=== PATIENT | female | born 1935 | race African-American/Black ===

== ENCOUNTER 2018-05-22 09:56 | Emergency (ER) | payer MEDICARE ==
[~2018-05-22] VITALS: Ht 149.9 cm; Wt 59.4 kg
[~2018-05-22 09:56] MED LIST: ACET325T9 PO; AMLO5TAB4 PO; Acetazolamide PO; BRIM5DRO2 OS; DICL112S2 TP; LOSA100T7 PO; METF500T16 PO; PANT40TA3 PO; PRED2.5T PO; TRAM50TA PO
[2018-05-22 10:57] LABS: BILIRUBIN,URINE NEGATIVE (NEG); CLARITY,URINE CLEAR; COLOR,URINE YELLOW; NITRITE,URINE NEGATIVE (NEG); PROTEIN,URINE NEGATIVE (NEG-TRACE)
[2018-05-22 10:58] LABS: BASO # 0.1 x10^3/uL (0.0-0.2); BASO % 1 % (0-3); EOS # 0.2 x10^3/uL (0.0-0.7); EOS % 3 % (0-3); HEMATOCRIT 33.8 % (36.0-47.0); HEMOGLOBIN 11.1 g/dL (12.0-15.5); LYMPH # 1.3 x10^3/uL (1.0-4.8); LYMPH % 16 % (24-48); MEAN CORPUSCULAR HEMOGLOBIN 27 pg (25-35); MEAN CORPUSCULAR HGB CONC 33 g/dL (31-37); MEAN CORPUSCULAR VOLUME 83 fL (79-100); MONO # 0.7 x10^3/uL (0.0-1.1); MONO % 9 % (0-9); NEUT # 5.5 x10^3uL (1.8-7.7); NEUT % 71 % (31-73); PLATELET COUNT 346 x10^3/uL (140-400); RED BLOOD COUNT 4.08 x10^6/uL (3.50-5.40); RED CELL DISTRIBUTION WIDTH 15.1 % (11.5-14.5); WHITE BLOOD COUNT 7.8 x10^3/uL (4.0-11.0)
[2018-05-22 11:10] LABS: BACTERIA,URINE FEW /HPF (0-FEW); RBC,URINE OCC /HPF (0-2); SQUAMOUS EPITHELIAL CELL,UR FEW /LPF
[2018-05-22 11:11] LABS: CALCIUM 9.1 mg/dL (8.5-10.1); CREATININE 1.2 mg/dL (0.6-1.0); GFR 51.9; POTASSIUM 4.3 mmol/L (3.5-5.1)
[2018-05-22] MEDS ORDERED: KETOROLAC 15 MG/ML VIAL. IV ONE (11:15)
[2018-05-22] MEDS ORDERED: predniSONE 20 MG TABLET PO ONE (11:15)
[2018-05-22] MEDS ORDERED: ONDANSETRON PF 4 MG/2 ML VIAL. IV ONE (11:15)
[2018-05-22] MEDS ORDERED: fentaNYL PF VIAL 100 MCG/2 ML VIAL IV ONE (11:15)
[2018-05-22 11:17] LABS: ALBUMIN 2.9 g/dL (3.4-5.0); ALBUMIN/GLOBULIN RATIO 0.6 (1.0-1.7); TOTAL BILIRUBIN 0.8 mg/dL (0.2-1.0); TOTAL PROTEIN 7.9 g/dL (6.4-8.2)
--- NOTE | 2018-05-22 11:38 | PHYS DOC ---
Past Medical History Past Medical History: Arthritis, Hypertension, Other Additional Past Medical Histor: Psoriasis, RA Past Surgical History: Appendectomy, , Other Additional Past Surgical Histo: Rotator Cuff Alcohol Use: None Drug Use: None Adult General Chief Complaint Chief Complaint: GENERALIZED BODY ACHES HPI HPI Patient is a 82 year old [place] female with history of rheumatoid arthritis who presents with diffuse body and joint aches. Symptom onset was this morning. Patient states she found it difficult to get up that due to joint stiffness. Patient recently discontinued prednisone 5 days ago due to hallucinations. Hallucinations have since resolved. No other acute symptoms or complaints. Denies fever, cough, sore throat, shortness of breath. No chest pain shortness of breath or palpitations. No abdominal pain, urinary frequency urgency. Additional history provided by family members who are present at bedside. [] Review of Systems Review of Systems ROS as per HPI. All other systems were reviewed and found to be within normal limits, except as documented in this note. Current Medications Current Medications Current Medications Medications (Trade) Dose Ordered Sig/Marilu Start Time Stop Time Status Last Admin Dose Admin Fentanyl Citrate (Fentanyl 2ml Vial) 50 mcg 1X ONCE 05/22/18 11:15 05/22/18 11:16 DC 05/22/18 11:20 50 MCG Ketorolac Tromethamine (Toradol 15mg Vial) 15 mg 1X ONCE 05/22/18 11:15 05/22/18 11:16 DC 05/22/18 11:17 15 MG Ondansetron HCl (Zofran) 4 mg 1X ONCE 05/22/18 11:15 05/22/18 11:16 DC 05/22/18 11:18 4 MG Prednisone (Prednisone) 60 mg 1X ONCE 05/22/18 11:15 05/22/18 11:16 DC Allergies Allergies Allergies Coded Allergies Type Severity Reaction Last Updated Verified No Known Drug Allergies 10/09/16 No Physical Exam Physical Exam Constitutional: Anxious, moderate discomfort secondary to pain.[] HENT: Normocephalic, atraumatic, bilateral external ears normal, oropharynx moist, no oral exudates, nose normal. [] Eyes: PERRLA, EOMI, conjunctiva normal, no discharge. [] Neck: Normal range of motion. [] Cardiovascular:Heart rate regular rhythm. [] Lungs & Thorax: Bilateral breath sounds clear to auscultation. [] Abdomen: Bowel sounds normal, soft, no tenderness. [] Skin: Warm, dry, no erythema. [] Back: No tenderness.[] Extremities: Rheumatoid deformities of small joints. Minimal swelling over wrist and hands, pain with range of motion. [] Neurologic: Alert and oriented X 3, normal motor function, normal sensory function, no focal deficits noted. [] Psychologic: Affect normal, judgement normal, mood normal. [] Current Patient Data Vital Signs Vital Signs Date Time Temp Pulse Resp B/P (MAP) Pulse Ox O2 Delivery O2 Flow Rate FiO2 05/22/18 12:07 94 176/96 (122) 97 Room Air 05/22/18 10:08 98.4 20 98.4 Lab Values Laboratory Tests Test 05/22/18 10:10 05/22/18 10:18 Urine Collection Type U cath Urine Color Yellow Urine Clarity Clear Urine pH 6.0 Urine Specific [place] 1.010 Urine Protein Negative mg/dL (NEG-TRACE) Urine Glucose (UA) Negative mg/dL (NEG) Urine Ketones (Stick) Negative mg/dL (NEG) Urine Blood Negative (NEG) Urine Nitrite Negative (NEG) Urine Bilirubin Negative (NEG) Urine Urobilinogen Dipstick 1.0 mg/dL (0.2 mg/dL) Urine Leukocyte Esterase Negative (NEG) Urine RBC Occ /HPF (0-2) Urine WBC 1-4 /HPF (0-4) Urine Squamous Epithelial Cells Few /LPF Urine Bacteria Few /HPF (0-FEW) Urine Mucus Mod /LPF White Blood Count 7.8 x10^3/uL (4.0-11.0) Red Blood Count 4.08 x10^6/uL (3.50-5.40) Hemoglobin 11.1 g/dL (12.0-15.5) L Hematocrit 33.8 % (36.0-47.0) L Mean Corpuscular Volume 83 fL (79-100) Mean Corpuscular Hemoglobin 27 pg (25-35) Mean Corpuscular Hemoglobin Concent 33 g/dL (31-37) Red Cell Distribution Width 15.1 % (11.5-14.5) H Platelet Count 346 x10^3/uL (140-400) Neutrophils (%) (Auto) 71 % (31-73) Lymphocytes (%) (Auto) 16 % (24-48) L Monocytes (%) (Auto) 9 % (0-9) Eosinophils (%) (Auto) 3 % (0-3) Basophils (%) (Auto) 1 % (0-3) Neutrophils # (Auto) 5.5 x10^3uL (1.8-7.7) Lymphocytes # (Auto) 1.3 x10^3/uL (1.0-4.8) Monocytes # (Auto) 0.7 x10^3/uL (0.0-1.1) Eosinophils # (Auto) 0.2 x10^3/uL (0.0-0.7) Basophils # (Auto) 0.1 x10^3/uL (0.0-0.2) Sodium Level 140 mmol/L (136-145) Potassium Level 4.3 mmol/L (3.5-5.1) Chloride Level 103 mmol/L (98-107) Carbon Dioxide Level 25 mmol/L (21-32) Anion Gap 12 (6-14) Blood Urea Nitrogen 10 mg/dL (7-20) Creatinine 1.2 mg/dL (0.6-1.0) H Estimated GFR (Cockcroft-Gault) 51.9 BUN/Creatinine Ratio 8 (6-20) Glucose Level 105 mg/dL (70-99) H Calcium Level 9.1 mg/dL (8.5-10.1) Total Bilirubin 0.8 mg/dL (0.2-1.0) Aspartate Amino Transferase (AST) 24 U/L (15-37) Alanine Aminotransferase (ALT) 22 U/L (14-59) Alkaline Phosphatase 88 U/L (46-116) Creatine Kinase 80 U/L (26-192) Troponin I Quantitative < 0.017 ng/mL (0.000-0.055) Total Protein 7.9 g/dL (6.4-8.2) Albumin 2.9 g/dL (3.4-5.0) L Albumin/Globulin Ratio 0.6 (1.0-1.7) L Laboratory Tests 05/22/18 10:18 Laboratory Tests 05/22/18 10:18 EKG EKG EKG: Miss rhythm, sinus tachycardia.[] Radiology/Procedures Radiology/Procedures [] Course & Med Decision Making Course & Med Decision Making Pertinent Labs and Imaging studies reviewed. (See chart for details) [Symptoms improved with tx. Recommend PCP f/u early next week. Return to the ED if new or worsening symptoms. ] Dragon Disclaimer Dragon Disclaimer This electronic medical record was generated, in whole or in part, using a voice recognition dictation system. Departure Departure Impression: Primary Impression: Arthralgia Disposition: HOME, SELF-CARE Condition: GOOD Referrals: WESTLEY RAYGOZA MD (PCP) Scripts Hydrocodone Bit/Acetaminophen (HYDROCODONE-APAP 5-300) 1 Each Tablet 1 TAB PO PRN Q6HRS PRN for PAIN, #15 TAB 0 Refills Prov: MILADYS DELGADO DO 05/22/18 MILADYS DELGADO DO May 22, 2018 11:38
[2018-05-22 12:07] VITALS: BP 176/96
[2018-05-22] MEDS ORDERED: HYDR-2163 PO (12:14)
--- NOTE | 2018-05-23 21:08 | EKG ---
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
== END 2018-05-22 12:16 | disposition home or self-care (01) ==
LOC: ER 09:56
DX: M06.9 Rheumatoid arthritis, unspecified (principal); I10 Essential (primary) hypertension; L40.9 Psoriasis, unspecified
CPT/HCPCS: 36415; 80053; 81001; 82550; 84484; 85025; 93005; 96374; 96375; 99285; J1885; J2405; J3010

== ENCOUNTER 2018-09-08 10:55 | Emergency (ER) | payer MEDICARE ==
[~2018-09-08] VITALS: Ht 152.4 cm; Wt 52.2 kg
[~2018-09-08 10:55] MED LIST changes: +HYDR-2163 PO; +LOSA100T14 PO; -LOSA100T7 PO; +OSEL30CA PO; -PANT40TA3 PO; +PANT40TA77 PO
[2018-09-08] MEDS ORDERED: IV NORMAL SALINE 1000ML BAG 1,000 ML IV SCH (11:31)
--- NOTE | 2018-09-08 11:38 | PHYS DOC ---
Past Medical History Past Medical History: Arthritis, Hypertension, Other Additional Past Medical Histor: Psoriasis, RA Past Surgical History: Appendectomy, , Other Additional Past Surgical Histo: Rotator Cuff Alcohol Use: None Drug Use: None Adult General Chief Complaint Chief Complaint: HYPOTENSION HPI HPI Patient is a 83-year-old female who presents with complaint of generalized weakness and dizziness that started this morning. Nursing facility the patient is at indicated that she had an episode of hypotension with systolic blood pressure reading in the 70s. Patient states that she feels fairly well at this time. 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 She denies any chest pain or shortness of breath. She does admit to a cough that is chronic. He also indicates that she had a headache earlier this morning but currently denies any pain. Review of Systems Review of Systems Constitutional: Denies fever or chills [] Eyes: Denies change in visual acuity, redness, or eye pain [] HENT: Complains of nasal congestion without sore throat [] Respiratory: [place] of cough without shortness of breath [] Cardiovascular: No additional information not addressed in HPI [] GI: Denies abdominal pain, vomiting or diarrhea. Admits to nausea without vomiting. [] Neurologic: Reports headache without focal weakness or sensory changes [] All other systems were reviewed and found to be within normal limits, except as documented in this note. Current Medications Current Medications Current Medications Medications (Trade) Dose Ordered Sig/Marilu Start Time Stop Time Status Last Admin Dose Admin Meclizine HCl (Antivert) 25 mg 1X ONCE 09/08/18 11:45 09/08/18 11:46 DC 09/08/18 12:08 25 MG Ondansetron HCl (Zofran) 4 mg 1X ONCE 09/08/18 11:45 09/08/18 11:46 DC 09/08/18 12:08 4 MG Sodium Chloride 1,000 ml @ 1,000 mls/hr Q1H 09/08/18 11:31 09/08/18 12:30 DC 09/08/18 11:31 1,000 MLS/HR Allergies Allergies Allergies Coded Allergies Type Severity Reaction Last Updated Verified No Known Drug Allergies 10/09/16 No Physical Exam Physical Exam Constitutional: Well developed, well nourished, no acute distress, non-toxic appearance. [] HENT: Normocephalic, atraumatic, bilateral external ears normal, oropharynx dry , no oral exudates, nose normal. [] Eyes: PERRLA, EOMI, conjunctiva normal, no discharge. [] Neck: Normal range of motion, no tenderness, supple. [] Cardiovascular: Regular rate and rhythm [] Lungs & Thorax: There are fine rhonchi in the bilateral lung bases to auscultation [] Abdomen: Bowel sounds normal, soft, no tenderness. [] Skin: Warm, dry, no erythema, no rash. [] Extremities: No tenderness, no cyanosis, no clubbing, ROM intact. [] Neurologic: Awake and alert, no focal deficits noted. [] Current Patient Data Vital Signs Vital Signs Date Time Temp Pulse Resp B/P (MAP) Pulse Ox O2 Delivery O2 Flow Rate FiO2 09/08/18 11:04 97.2 74 18 118/60 (79) 100 Room Air 97.2 Lab Values Laboratory Tests Test 09/08/18 11:15 09/08/18 12:05 Urine Collection Type Unknown Urine Color Yellow Urine Clarity Clear Urine pH 5.5 Urine Specific [place] 1.015 Urine Protein Negative mg/dL (NEG-TRACE) Urine Glucose (UA) Negative mg/dL (NEG) Urine Ketones (Stick) Negative mg/dL (NEG) Urine Blood Small (NEG) Urine Nitrite Negative (NEG) Urine Bilirubin Negative (NEG) Urine Urobilinogen Dipstick 0.2 mg/dL (0.2 mg/dL) Urine Leukocyte Esterase Trace (NEG) Urine RBC 1-2 /HPF (0-2) Urine WBC 1-4 /HPF (0-4) Urine Bacteria 0 /HPF (0-FEW) White Blood Count 14.8 x10^3/uL (4.0-11.0) H Red Blood Count 3.46 x10^6/uL (3.50-5.40) L Hemoglobin 9.6 g/dL (12.0-15.5) L Hematocrit 28.6 % (36.0-47.0) L Mean Corpuscular Volume 83 fL (79-100) Mean Corpuscular Hemoglobin 28 pg (25-35) Mean Corpuscular Hemoglobin Concent 34 g/dL (31-37) Red Cell Distribution Width 15.7 % (11.5-14.5) H Platelet Count 585 x10^3/uL (140-400) H Neutrophils (%) (Auto) 79 % (31-73) H Lymphocytes (%) (Auto) 10 % (24-48) L Monocytes (%) (Auto) 11 % (0-9) H Eosinophils (%) (Auto) 1 % (0-3) Basophils (%) (Auto) 1 % (0-3) Neutrophils # (Auto) 11.6 x10^3uL (1.8-7.7) H Lymphocytes # (Auto) 1.4 x10^3/uL (1.0-4.8) Monocytes # (Auto) 1.6 x10^3/uL (0.0-1.1) H Eosinophils # (Auto) 0.1 x10^3/uL (0.0-0.7) Basophils # (Auto) 0.1 x10^3/uL (0.0-0.2) Sodium Level 136 mmol/L (136-145) Potassium Level 5.0 mmol/L (3.5-5.1) Chloride Level 100 mmol/L (98-107) Carbon Dioxide Level 25 mmol/L (21-32) Anion Gap 11 (6-14) Blood Urea Nitrogen 29 mg/dL (7-20) H Creatinine 1.6 mg/dL (0.6-1.0) H Estimated GFR (Cockcroft-Gault) 37.2 BUN/Creatinine Ratio 18 (6-20) Glucose Level 115 mg/dL (70-99) H Calcium Level 9.4 mg/dL (8.5-10.1) Magnesium Level 2.3 mg/dL (1.8-2.4) Total Bilirubin 0.4 mg/dL (0.2-1.0) Aspartate Amino Transferase (AST) 17 U/L (15-37) Alanine Aminotransferase (ALT) 12 U/L (14-59) L Alkaline Phosphatase 97 U/L (46-116) Troponin I Quantitative < 0.017 ng/mL (0.000-0.055) Total Protein 7.6 g/dL (6.4-8.2) Albumin 2.9 g/dL (3.4-5.0) L Albumin/Globulin Ratio 0.6 (1.0-1.7) L Influenza Type A Antigen Negative (NEGATIVE) Influenza Type B Antigen Negative (NEGATIVE) Laboratory Tests 09/08/18 12:05 Laboratory Tests 09/08/18 12:05 EKG EKG [] Interpretation Time: EKG demonstrates normal sinus rhythm with rate of 90. Radiology/Procedures Radiology/Procedures [] Impressions: PROCEDURE: PORTABLE CHEST 1V EXAM: CHEST 1 VIEW History: Cough COMPARISON: 11/06/2014 TECHNIQUE: Single portable radiograph of the chest FINDINGS: The cardiac silhouette is unremarkable. The lungs are clear bilaterally. The costophrenic sulci are clear and well demarcated. IMPRESSION: No radiographic evidence of an acute cardiopulmonary process. Electronically signed by: Dayday Ho MD (09/08/2018 12:44 PM) [facility] Course & Med Decision Making Course & Med Decision Making Pertinent Labs and Imaging studies reviewed. (See chart for details) [] Dragon Disclaimer Dragon Disclaimer This electronic medical record was generated, in whole or in part, using a voice recognition dictation system. Departure Departure Impression: Primary Impression: Vasovagal near syncope Disposition: 01 HOME, SELF-CARE Condition: STABLE Referrals: CATHLEEN SHUKLA III, DO (PCP) Patient Instructions: Near-Syncope NIKKO RAYMOND Jr., DO Sep 08, 2018 11:38
[2018-09-08] MEDS ORDERED: ONDANSETRON PF 4 MG/2 ML VIAL. IV ONE (11:45)
[2018-09-08] MEDS ORDERED: MECLIZINE HCL 12.5 MG TABLET. PO ONE (11:45)
[2018-09-08 11:59] LABS: BILIRUBIN,URINE NEGATIVE (NEG); CLARITY,URINE CLEAR; COLOR,URINE YELLOW; NITRITE,URINE NEGATIVE (NEG); PH,URINE 5.5; PROTEIN,URINE NEGATIVE (NEG-TRACE); UROBILINOGEN,URINE 0.2 mg/dL (0.2 mg/dL)
[2018-09-08 12:22] LABS: BACTERIA,URINE 0 /HPF (0-FEW)
[2018-09-08 12:25] LABS: BASO # 0.1 x10^3/uL (0.0-0.2); BASO % 1 % (0-3); EOS # 0.1 x10^3/uL (0.0-0.7); EOS % 1 % (0-3); HEMATOCRIT 28.6 % (36.0-47.0); HEMOGLOBIN 9.6 g/dL (12.0-15.5); LYMPH # 1.4 x10^3/uL (1.0-4.8); LYMPH % 10 % (24-48); MEAN CORPUSCULAR HEMOGLOBIN 28 pg (25-35); MEAN CORPUSCULAR HGB CONC 34 g/dL (31-37); MEAN CORPUSCULAR VOLUME 83 fL (79-100); MONO # 1.6 x10^3/uL (0.0-1.1); MONO % 11 % (0-9); NEUT # 11.6 x10^3uL (1.8-7.7); NEUT % 79 % (31-73); PLATELET COUNT 585 x10^3/uL (140-400); RED BLOOD COUNT 3.46 x10^6/uL (3.50-5.40); RED CELL DISTRIBUTION WIDTH 15.7 % (11.5-14.5); WHITE BLOOD COUNT 14.8 x10^3/uL (4.0-11.0)
[2018-09-08 12:34] LABS: CALCIUM 9.4 mg/dL (8.5-10.1); CREATININE 1.6 mg/dL (0.6-1.0); GFR 37.2
[2018-09-08 12:38] LABS: INFLUENZA A PATIENT NEGATIVE (NEGATIVE); INFLUENZA B PATIENT NEGATIVE (NEGATIVE)
[2018-09-08 12:39] LABS: ALBUMIN 2.9 g/dL (3.4-5.0); ALBUMIN/GLOBULIN RATIO 0.6 (1.0-1.7); MAGNESIUM 2.3 mg/dL (1.8-2.4); TOTAL BILIRUBIN 0.4 mg/dL (0.2-1.0); TOTAL PROTEIN 7.6 g/dL (6.4-8.2)
--- NOTE | 2018-09-08 12:48 | RAD ---
EXAM: CHEST 1 VIEW History: Cough COMPARISON: 11/06/2014 TECHNIQUE: Single portable radiograph of the chest FINDINGS: The cardiac silhouette is unremarkable. The lungs are clear bilaterally. The costophrenic sulci are clear and well demarcated. IMPRESSION: No radiographic evidence of an acute cardiopulmonary process. Electronically signed by: Dayday Ho MD (09/08/2018 12:44 PM) [facility]
[2018-09-08 13:29] VITALS: BP 133/83
--- NOTE | 2018-09-08 16:20 | EKG ---
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
== END 2018-09-08 14:45 | disposition home or self-care (01) ==
LOC: ER 10:55
DX: R55 Syncope and collapse (principal); R53.1 Weakness; I95.9 Hypotension, unspecified; I10 Essential (primary) hypertension; Z90.89 Acquired absence of other organs
CPT/HCPCS: 36415; 71045; 80053; 81001; 83735; 84484; 85025; 87086; 87804; 93005; 96361; 96374; 99284; J2405; J7030; J8597

== ENCOUNTER 2018-12-23 10:14 | Inpatient (IN) | payer MEDICARE ==
[~2018-12-23] VITALS: Ht 152.4 cm; Wt 47.3 kg
[~2018-12-23 10:14] MED LIST changes: +PANT40TA3 PO; -PANT40TA77 PO
[2018-12-23] MEDS ORDERED: fentaNYL PF VIAL 100 MCG/2 ML VIAL IV ONE (10:30)
[2018-12-23 11:08] LABS: BASO % 1 % (0-3); EOS # 0.1 x10^3/uL (0.0-0.7); EOS % 2 % (0-3); HEMATOCRIT 31.4 % (36.0-47.0); HEMOGLOBIN 10.2 g/dL (12.0-15.5); LYMPH # 1.2 x10^3/uL (1.0-4.8); LYMPH % 19 % (24-48); MEAN CORPUSCULAR HEMOGLOBIN 26 pg (25-35); MEAN CORPUSCULAR HGB CONC 33 g/dL (31-37); MEAN CORPUSCULAR VOLUME 80 fL (79-100); MONO # 0.7 x10^3/uL (0.0-1.1); MONO % 11 % (0-9); NEUT # 4.5 x10^3uL (1.8-7.7); NEUT % 68 % (31-73); PLATELET COUNT 370 x10^3/uL (140-400); RED BLOOD COUNT 3.93 x10^6/uL (3.50-5.40); RED CELL DISTRIBUTION WIDTH 16.8 % (11.5-14.5); WHITE BLOOD COUNT 6.6 x10^3/uL (4.0-11.0)
--- NOTE | 2018-12-23 11:08 | PHYS DOC ---
Past Medical History Past Medical History: Arthritis, Hypertension, Other Additional Past Medical Histor: Psoriasis, RA Past Surgical History: Appendectomy, , Other Additional Past Surgical Histo: Rotator Cuff Alcohol Use: None Drug Use: None Adult General Chief Complaint Chief Complaint: PAIN CONTROL [facility] HPI Patient is a 83 year old female brought in by EMS because of hurting all over. Patient states she has chronic arthritis in all of her joints and currently taking Ultram but she doesn't the medicine because it causes constipation. Patient states her joints hurt more with activity and complaining of pain in her hands, elbow and shoulder, hip , knees and ankle and rated her pain 8/10.. She denies focal neuro deficit, chest pain, shortness of breath, fever and chills, urinary symptom. Review of Systems Review of Systems Constitutional: Denies fever or chills [] Eyes: Denies change in visual acuity, redness, or eye pain [] HENT: Denies nasal congestion or sore throat [] Respiratory: Denies cough or shortness of breath [] Cardiovascular: No additional information not addressed in HPI [] GI: Denies abdominal pain, nausea, vomiting, bloody stools or diarrhea [] : Denies dysuria or hematuria [] Musculoskeletal: Denies back pain, reports joint pain [] Integument: Denies rash or skin lesions [] Neurologic: Denies headache, focal weakness or sensory changes [] Endocrine: Denies polyuria or polydipsia [] All other systems were reviewed and found to be within normal limits, except as documented in this note. Current Medications Current Medications Current Medications Medications (Trade) Dose Ordered Sig/[facility] Start Time Stop Time Status Last Admin Dose Admin Fentanyl Citrate (Fentanyl 2ml Vial) 50 mcg 1X ONCE 12/23/18 10:30 12/23/18 10:32 DC 12/23/18 11:20 50 MCG Allergies Allergies Allergies Coded Allergies Type Severity Reaction Last Updated Verified No Known Drug Allergies 10/09/16 No Physical Exam Physical Exam Constitutional: Well developed, well nourished, mild distress, non-toxic appearance. [] HENT: Normocephalic, atraumatic. Eyes: PERRLA, EOMI, conjunctiva normal, no discharge. [] Neck: Normal range of motion, no tenderness, supple, no stridor. [] Cardiovascular:Heart rate regular rhythm, no murmur [] Lungs & Thorax: Bilateral breath sounds clear to auscultation [] Skin: Warm, dry, no erythema, no rash. [] Back: No tenderness, no CVA tenderness. [] Extremities: Small joint deformity of right and left hands more in the right side, painful range of motion, no deformity of large joint , no edema. [] Neurologic: Alert and oriented X 3, normal motor function, normal sensory function, no focal deficits noted. [] Psychologic: Affect anxious, judgement normal, mood normal. [] Current Patient Data Vital Signs Vital Signs Date Time Temp Pulse Resp B/P (MAP) Pulse Ox O2 Delivery O2 Flow Rate FiO2 12/23/18 11:20 16 99 Room Air 12/23/18 10:29 98.6 94 98.6 Lab Values Laboratory Tests Test 12/23/18 10:49 12/23/18 11:01 12/23/18 11:25 Urine Collection Type U cath Urine Color Yellow Urine Clarity Clear Urine pH 5.5 Urine Specific [place] 1.015 Urine Protein Negative mg/dL (NEG-TRACE) Urine Glucose (UA) Negative mg/dL (NEG) Urine Ketones (Stick) Negative mg/dL (NEG) Urine Blood Negative (NEG) Urine Nitrite Negative (NEG) Urine Bilirubin Negative (NEG) Urine Urobilinogen Dipstick 1.0 mg/dL (0.2 mg/dL) Urine Leukocyte Esterase Trace (NEG) Urine RBC 0 /HPF (0-2) Urine WBC 0 /HPF (0-4) Urine Squamous Epithelial Cells Few /LPF Urine Bacteria 0 /HPF (0-FEW) White Blood Count 6.6 x10^3/uL (4.0-11.0) Red Blood Count 3.93 x10^6/uL (3.50-5.40) Hemoglobin 10.2 g/dL (12.0-15.5) L Hematocrit 31.4 % (36.0-47.0) L Mean Corpuscular Volume 80 fL (79-100) Mean Corpuscular Hemoglobin 26 pg (25-35) Mean Corpuscular Hemoglobin Concent 33 g/dL (31-37) Red Cell Distribution Width 16.8 % (11.5-14.5) H Platelet Count 370 x10^3/uL (140-400) Neutrophils (%) (Auto) 68 % (31-73) Lymphocytes (%) (Auto) 19 % (24-48) L Monocytes (%) (Auto) 11 % (0-9) H Eosinophils (%) (Auto) 2 % (0-3) Basophils (%) (Auto) 1 % (0-3) Neutrophils # (Auto) 4.5 x10^3uL (1.8-7.7) Lymphocytes # (Auto) 1.2 x10^3/uL (1.0-4.8) Monocytes # (Auto) 0.7 x10^3/uL (0.0-1.1) Eosinophils # (Auto) 0.1 x10^3/uL (0.0-0.7) Basophils # (Auto) 0.0 x10^3/uL (0.0-0.2) Sodium Level 134 mmol/L (136-145) L Potassium Level 3.9 mmol/L (3.5-5.1) Chloride Level 99 mmol/L (98-107) Carbon Dioxide Level 22 mmol/L (21-32) Anion Gap 13 (6-14) Blood Urea Nitrogen 11 mg/dL (7-20) Creatinine 1.0 mg/dL (0.6-1.0) Estimated GFR (Cockcroft-Gault) 63.9 BUN/Creatinine Ratio 11 (6-20) Glucose Level 100 mg/dL (70-99) H Calcium Level 9.2 mg/dL (8.5-10.1) Total Bilirubin 0.7 mg/dL (0.2-1.0) Aspartate Amino Transferase (AST) 21 U/L (15-37) Alanine Aminotransferase (ALT) < 6 U/L (14-59) L Alkaline Phosphatase 69 U/L (46-116) Total Protein 7.7 g/dL (6.4-8.2) Albumin 2.6 g/dL (3.4-5.0) L Albumin/Globulin Ratio 0.5 (1.0-1.7) L Laboratory Tests 12/23/18 11:01 Laboratory Tests 12/23/18 11:25 EKG EKG [] Radiology/Procedures Radiology/Procedures [] Course & Med Decision Making Course & Med Decision Making Pertinent Labs reviewed. (See chart for details) Evaluation of patient in ER showed 83-year-old female patient with complaining of chronic arthritis she that doesn't get better with Tramadol and complaining of constipation after taking Ultram. Patient states that she lives in second floor apartment and doesn't have any way to get to her apartment because of severe pain. Patient requesting rehabilitation or retirement placement. Plan to admit patient to hospitalist for possible rehabilitation placement.Patient requiring admission for further evaluation and treatment. Discussed with Dr. Hood who is in agreement with admission. Discussed findings and plan with patient and family, who acknowledge understanding and agreement. Dragon Disclaimer Dragon Disclaimer This electronic medical record was generated, in whole or in part, using a voice recognition dictation system. Departure Departure Impression: Primary Impression: Generalized weakness Additional Impressions: Arthralgia Anemia Disposition: 09 ADMITTED INPATIENT (1228) Admitting Physician: Becky Hood (accepted admission at 1227) Condition: IMPROVED Referrals: ROSAMARIA SIMONS MD (PCP) Problem Qualifiers Additional Impressions: Arthralgia Joint pain location: unspecified Qualified Codes: M25.50 - Pain in unspecified joint Anemia Anemia type: unspecified type Qualified Codes: D64.9 - Anemia, unspecified CHANI NEFF MD Dec 23, 2018 11:08
[2018-12-23 11:09] LABS: CLARITY,URINE CLEAR; COLOR,URINE YELLOW
[2018-12-23 11:13] LABS: BILIRUBIN,URINE NEGATIVE (NEG)
[2018-12-23 11:14] LABS: BACTERIA,URINE 0 /HPF (0-FEW); NITRITE,URINE NEGATIVE (NEG); PH,URINE 5.5; PROTEIN,URINE NEGATIVE (NEG-TRACE); RBC,URINE 0 /HPF (0-2); SQUAMOUS EPITHELIAL CELL,UR FEW /LPF; WBC,URINE 0 /HPF (0-4)
[2018-12-23 11:43] LABS: ANION GAP 13 (6-14); BLOOD UREA NITROGEN 11 mg/dL (7-20); BUN/CREATININE RATIO 11 (6-20); CALCIUM 9.2 mg/dL (8.5-10.1); CARBON DIOXIDE 22 mmol/L (21-32); CHLORIDE 99 mmol/L (98-107); GFR 63.9; GLUCOSE 100 mg/dL (70-99); POTASSIUM 3.9 mmol/L (3.5-5.1); SODIUM 134 mmol/L (136-145)
[2018-12-23 11:49] LABS: ALBUMIN 2.6 g/dL (3.4-5.0); ALBUMIN/GLOBULIN RATIO 0.5 (1.0-1.7); ALK PHOS 69 U/L (46-116); ALT (SGPT) < 6 U/L (14-59); AST (SGOT) 21 U/L (15-37); TOTAL BILIRUBIN 0.7 mg/dL (0.2-1.0); TOTAL PROTEIN 7.7 g/dL (6.4-8.2)
[2018-12-23] MEDS ORDERED: POLYETHYLENE GLYCOL 3350 17 GM PACKET. PO PRN (14:00)
[2018-12-23] MEDS: DOCUSATE SODIUM 100 MG CAPSULE. PO SCH ×2 (14:00→14:59)
[2018-12-23] MEDS ORDERED: predniSONE 5 MG TABLET PO SCH (14:00)
[2018-12-23] MEDS ORDERED: DOCUSATE SODIUM 100 MG CAPSULE. PO PRN (14:00)
--- NOTE | 2018-12-23 14:00 | NUR ---
pt admitted to room 508. oriented to room and call light. daughter at bedside
[2018-12-23] MEDS: amLODIPine BESYLATE 5 MG TABLET PO SCH (14:58)
[2018-12-23] MEDS: POLYETHYLENE GLYCOL 3350 17 GM PACKET. PO SCH (14:58)
[2018-12-23] MEDS: LOSARTAN POTASSIUM 50 MG TABLET. PO SCH (14:58)
[2018-12-23] MEDS: PANTOPRAZOLE 40 MG TABLET.DR. PO SCH (15:01)
[2018-12-23 15:06] VITALS: BP 173/80
[2018-12-23] MEDS ORDERED: oxyCODONE/APAP 5/325 1 TAB TABLET PO PRN (15:15)
[2018-12-23] MEDS ORDERED: POTASSIUM CL 20MEQ D5-0.45NACL 1,000 ML IV ONE (15:15)
[2018-12-23] MEDS ORDERED: SALIVA STIMULANT AGENT 44ML SPRAY BOTTLE. PO PRN (15:15)
[2018-12-23] MEDS ORDERED: SODIUM CHLORIDE 0.65% NASAL SPRAY 45ML BOTTLE. NS PRN (15:15)
--- NOTE | 2018-12-23 15:16 | PDOC1 ---
History and Physical Date of Admission Date of Admission DATE: 12/23/18 TIME: 15:08 Identification/Chief Complaint Chief Complaint joint pain, weakness, weight loss, Source Source: Caregiver, Chart review, Patient History of Present Illness History of Present Illness Ms. Amanda is a 83 year old female brought in by EMS because mult complaints. joint pain, difficulty ambulating, worsening weakness and pain. Patient states she has chronic arthritis in all of her joints and currently taking Ultram witout much benefit. She reports she had been taken off of prednsone "because she had been on it too long" and that someone had refused to refill her Methotrexate, but it seemed that she may have needed to follow in clinic and did not. She now complains of her mouth being too dry to eat, and weakness and weight loss with the joint pain. She is complaining of pain in her hands, elbow and shoulder, hip , knees and ankle and rated her pain 8/10.. 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 Past Medical History Cardiovascular: HTN Pulmonary: No pertinent hx CENTRAL NERVOUS SYSTEM: Other GI: GERD, Other Heme/Onc: No pertinent hx Hepatobiliary: No pertinent hx Psych: No pertinent hx Musculoskeletal: Osteoarthritis Rheumatologic: No pertinent hx Infectious disease: No pertinent hx Renal/: No pertinent hx Endocrine: Diabetes Past Surgical History Past Surgical History: Cataract Removal, Other Family History Family History: Hypertension Social History Smoke: No ALCOHOL: none Drugs: None Current Problem List Problem List Problems Medical Problems: (1) Anemia Status: Acute (2) Arthralgia Status: Acute (3) Generalized weakness Status: Acute Current Medications Current Medications Current Medications Fentanyl Citrate (Fentanyl 2ml Vial) 50 mcg 1X ONCE IV Last administered on 12/23/18at 11:20; Start 12/23/18 at 10:30; Stop 12/23/18 at 10:32; Status DC Amlodipine Besylate (Norvasc) 5 mg DAILY PO Last administered on 12/23/18at 14:58; Start 12/23/18 at 14:00 Pantoprazole Sodium (Protonix) 40 mg DAILY PO Last administered on 12/23/18at 15:01; Start 12/23/18 at 16:30 Losartan Potassium (Cozaar) 100 mg DAILY PO Last administered on 12/23/18at 14:58; Start 12/23/18 at 14:00 Docusate Sodium (Colace) 100 mg DAILY PO ; Start 12/23/18 at 14:00 Docusate Sodium (Colace) 100 mg PRN DAILY PRN PO CONSTIPATION (1st Choice); Start 12/23/18 at 14:00 Polyethylene Glycol (miraLAX PACKET) 17 gm DAILY PO Last administered on 12/23/18at 14:58; Start 12/23/18 at 14:00 Polyethylene Glycol (miraLAX PACKET) 17 gm PRN DAILY PRN PO CONSTIPATION (2nd Choice); Start 12/23/18 at 14:00 Prednisone (Prednisone) 5 mg DAILY PO Last administered on 12/23/18at 14:58; Start 12/23/18 at 14:00 Active Scripts Active Tamiflu (Oseltamivir Phosphate) 30 Mg Capsule 1 Cap PO BID 5 Days Protonix (Pantoprazole Sodium) 40 Mg Tablet.dr 1 Tab PO DAILY Norvasc (Amlodipine Besylate) 5 Mg Tablet 5 Mg PO DAILY Reported Losartan Potassium 100 Mg Tablet 100 Mg PO DAILY Prednisone 2.5 Mg Tablet 2 Tab PO DAILY Tylenol (Acetaminophen) 325 Mg Tablet 1,000 Mg PO DAILY Allergies Allergies: Coded Allergies: No Known Drug Allergies (Unverified , 10/09/16) ROS General: YES: Fatigue, Malaise; No: Chills, Night Sweats, Appetite, Other PSYCHOLOGICAL ROS: YES: Sleep disturbances; No: Anxiety, Behavioral Disorder, Concentration difficultie, Decreased libido, Depression, Disorientation, Hallucinations, Hostility, Irritablity, Memory difficulties, Mood Swings, Obsessive thoughts, Physical abuse, Sexual abuse, Suicidal ideation, Other Eyes: No Blurry vision, No Decreased vision, No Double vision, No Dry eyes, No Excessive tearing, No Eye Pain, No Itchy Eyes, No Loss of vision, No Photophobia, No Scotomata, No Uses contacts, No Uses glasses, No Other HEENT: YES: Heacaches, Sinus pain, Other (dry); No: Visual Changes, Hearing change, Nasal congestion, Nasal discharge, Oral lesions, Sore Throat, Epistaxis, Sneezing, Snoring, Tinnitus, Vertigo, Vocal changes Respiratory: No: Cough, Hemoptysis, Pleuritic Pain, Shortness of breath, SOB with excertion, Sputum Changes, Stridor, Tachypnea, Wheezing, Other Cardiovascular: No Chest Pain, No Palpitations, No Orthopnea, No Paroxysmal Noc. Dyspnea, No Edema, No Lt Headedness, No Other Gastrointestinal: No Nausea, No Vomiting, No Abdominal Pain, No Diarrhea, No Constipation, No Melena, No Hematochezia, No Other Genitourinary: No Dysuria, No Frequency, No Incontinence, No Hematuria, No Retention, No Discharge, No Urgency, No Pain, No Flank Pain, No Other, No , No , No , No , No , No , No Musculoskeletal: Yes Gait Disturbance, Yes Joint Pain, Yes Joint Stiffness Neurological: Yes Gait Disturbance Skin: Yes Dry Skin, Yes Other Physical Exam General: Alert, Oriented X3, mild distress HEENT: PERRLA, Mucous membr. moist/pink, Other (dry op) Lungs: Clear to auscultation, Normal air movement Heart: no gallops Abdomen: Normal bowel sounds, Soft Rectal Exam: not examined Extremities: No cyanosis, No edema, Other (boggy itp joints, lateral deviation of digtis, muscle wasting of hands) Skin: No rashes, No significant lesion Neuro: Normal speech, Sensation intact, Reflexes 2+, Other Psych/Mental Status: Mental status NL, Mood NL Vitals Vitals Vital Signs Date Time Temp Pulse Resp B/P (MAP) Pulse Ox O2 Delivery O2 Flow Rate FiO2 12/23/18 15:06 97.9 86 17 173/80 (111) 100 Room Air 97.9 Labs Labs Laboratory Tests Test 12/23/18 10:49 12/23/18 11:01 12/23/18 11:25 Urine Collection Type U cath Urine Color Yellow Urine Clarity Clear Urine pH 5.5 Urine Specific Brant 1.015 Urine Protein Negative mg/dL (NEG-TRACE) Urine Glucose (UA) Negative mg/dL (NEG) Urine Ketones (Stick) Negative mg/dL (NEG) Urine Blood Negative (NEG) Urine Nitrite Negative (NEG) Urine Bilirubin Negative (NEG) Urine Urobilinogen Dipstick 1.0 mg/dL (0.2 mg/dL) Urine Leukocyte Esterase Trace (NEG) Urine RBC 0 /HPF (0-2) Urine WBC 0 /HPF (0-4) Urine Squamous Epithelial Cells Few /LPF Urine Bacteria 0 /HPF (0-FEW) White Blood Count 6.6 x10^3/uL (4.0-11.0) Red Blood Count 3.93 x10^6/uL (3.50-5.40) Hemoglobin 10.2 g/dL (12.0-15.5) Hematocrit 31.4 % (36.0-47.0) Mean Corpuscular Volume 80 fL (79-100) Mean Corpuscular Hemoglobin 26 pg (25-35) Mean Corpuscular Hemoglobin Concent 33 g/dL (31-37) Red Cell Distribution Width 16.8 % (11.5-14.5) Platelet Count 370 x10^3/uL (140-400) Neutrophils (%) (Auto) 68 % (31-73) Lymphocytes (%) (Auto) 19 % (24-48) Monocytes (%) (Auto) 11 % (0-9) Eosinophils (%) (Auto) 2 % (0-3) Basophils (%) (Auto) 1 % (0-3) Neutrophils # (Auto) 4.5 x10^3uL (1.8-7.7) Lymphocytes # (Auto) 1.2 x10^3/uL (1.0-4.8) Monocytes # (Auto) 0.7 x10^3/uL (0.0-1.1) Eosinophils # (Auto) 0.1 x10^3/uL (0.0-0.7) Basophils # (Auto) 0.0 x10^3/uL (0.0-0.2) Sodium Level 134 mmol/L (136-145) Potassium Level 3.9 mmol/L (3.5-5.1) Chloride Level 99 mmol/L (98-107) Carbon Dioxide Level 22 mmol/L (21-32) Anion Gap 13 (6-14) Blood Urea Nitrogen 11 mg/dL (7-20) Creatinine 1.0 mg/dL (0.6-1.0) Estimated GFR (Cockcroft-Gault) 63.9 BUN/Creatinine Ratio 11 (6-20) Glucose Level 100 mg/dL (70-99) Calcium Level 9.2 mg/dL (8.5-10.1) Total Bilirubin 0.7 mg/dL (0.2-1.0) Aspartate Amino Transf (AST/SGOT) 21 U/L (15-37) Alanine Aminotransferase (ALT/SGPT) < 6 U/L (14-59) Alkaline Phosphatase 69 U/L (46-116) Total Protein 7.7 g/dL (6.4-8.2) Albumin 2.6 g/dL (3.4-5.0) Albumin/Globulin Ratio 0.5 (1.0-1.7) Laboratory Tests Test 12/23/18 10:49 12/23/18 11:01 12/23/18 11:25 Urine Collection Type U cath Urine Color Yellow Urine Clarity Clear Urine pH 5.5 Urine Specific Brant 1.015 Urine Protein Negative mg/dL (NEG-TRACE) Urine Glucose (UA) Negative mg/dL (NEG) Urine Ketones (Stick) Negative mg/dL (NEG) Urine Blood Negative (NEG) Urine Nitrite Negative (NEG) Urine Bilirubin Negative (NEG) Urine Urobilinogen Dipstick 1.0 mg/dL (0.2 mg/dL) Urine Leukocyte Esterase Trace (NEG) Urine RBC 0 /HPF (0-2) Urine WBC 0 /HPF (0-4) Urine Squamous Epithelial Cells Few /LPF Urine Bacteria 0 /HPF (0-FEW) White Blood Count 6.6 x10^3/uL (4.0-11.0) Red Blood Count 3.93 x10^6/uL (3.50-5.40) Hemoglobin 10.2 g/dL (12.0-15.5) Hematocrit 31.4 % (36.0-47.0) Mean Corpuscular Volume 80 fL (79-100) Mean Corpuscular Hemoglobin 26 pg (25-35) Mean Corpuscular Hemoglobin Concent 33 g/dL (31-37) Red Cell Distribution Width 16.8 % (11.5-14.5) Platelet Count 370 x10^3/uL (140-400) Neutrophils (%) (Auto) 68 % (31-73) Lymphocytes (%) (Auto) 19 % (24-48) Monocytes (%) (Auto) 11 % (0-9) Eosinophils (%) (Auto) 2 % (0-3) Basophils (%) (Auto) 1 % (0-3) Neutrophils # (Auto) 4.5 x10^3uL (1.8-7.7) Lymphocytes # (Auto) 1.2 x10^3/uL (1.0-4.8) Monocytes # (Auto) 0.7 x10^3/uL (0.0-1.1) Eosinophils # (Auto) 0.1 x10^3/uL (0.0-0.7) Basophils # (Auto) 0.0 x10^3/uL (0.0-0.2) Sodium Level 134 mmol/L (136-145) Potassium Level 3.9 mmol/L (3.5-5.1) Chloride Level 99 mmol/L (98-107) Carbon Dioxide Level 22 mmol/L (21-32) Anion Gap 13 (6-14) Blood Urea Nitrogen 11 mg/dL (7-20) Creatinine 1.0 mg/dL (0.6-1.0) Estimated GFR (Cockcroft-Gault) 63.9 BUN/Creatinine Ratio 11 (6-20) Glucose Level 100 mg/dL (70-99) Calcium Level 9.2 mg/dL (8.5-10.1) Total Bilirubin 0.7 mg/dL (0.2-1.0) Aspartate Amino Transf (AST/SGOT) 21 U/L (15-37) Alanine Aminotransferase (ALT/SGPT) < 6 U/L (14-59) Alkaline Phosphatase 69 U/L (46-116) Total Protein 7.7 g/dL (6.4-8.2) Albumin 2.6 g/dL (3.4-5.0) Albumin/Globulin Ratio 0.5 (1.0-1.7) VTE Prophylaxis Ordered VTE Prophylaxis Devices: No VTE Pharmacological Prophylaxi: Yes Assessment/Plan Assessment/Plan diffuse joint pain exacerbation of rheumatoid arthritis dry mouth, sjogrens syndrome, consult Rheum, try symptom managment weakenss and debility weight loss and severe malnutrition and hypoalbumin, try to treat dry mouth, nutrition consult ALVARO FABIAN MD Dec 23, 2018 15:15
--- NOTE | 2018-12-23 15:40 | NUR ---
SW consulted for SNU. Chart reviewed and DW RN. Pt lives at home and has been to [facility] in July 2018. PT/OT pending. MONIK will await for PT/OT recommendation to assess skilled needs.
[2018-12-23] MEDS: ENOXAPARIN 30 MG/0.3 ML SYRINGE. SQ SCH (16:33)
[2018-12-23] MEDS ORDERED: methylPREDNISolone ACETATE 40 MG/ML VIAL. IM ONE (17:30)
[2018-12-23] MEDS ORDERED: BUPIVACAINE MPF 0.25% 10 ML VIAL. IJ ONE (17:30)
[2018-12-23] MEDS ORDERED: methylPREDNISolone ACETATE 40 MG/ML VIAL. INJ ONE (17:30)
--- NOTE | 2018-12-23 17:52 | PDOC4 ---
PROCEDURE Procedure At her request,I have injected her both knees under aseptic skin technique with 4 ml of 0.25% bupivacaine solution mixed with 2 ml of methylprednisone 40 mg 1 ml solution and she tolerated the procedures satisfactorily without any side effects. SHEN WADE MD Dec 23, 2018 17:52
[2018-12-23 19:00] VITALS: BP 121/60
[2018-12-23] MEDS: DICLOFENAC SODIUM 1% TOPICAL GEL 100GM TUBE. TP SCH (21:20)
[2018-12-23 23:00] VITALS: BP 124/65
[2018-12-24 03:00] VITALS: BP 131/68
--- NOTE | 2018-12-24 06:01 | CONS ---
DATE OF CONSULTATION: 12/23/2018 ATTENDING PHYSICIAN: Dr. Hood. The patient was seen at the request of Dr. Hood. I saw her at the request of Dr. Hood for rehab evaluation. HISTORY OF PRESENT ILLNESS: This is an 83-year-old female patient with probable rheumatoid arthritis with associated degenerative joint disease of both shoulders, elbows, wrist and hand and also both knees and chronic lower back pain from degenerative disk disease and degenerative joint disease of lumbar vertebrae. The patient lives with her daughter, had stairs to manage. She was recently in the hospital and long-term care unit. At the time she received prednisone and that started her on methotrexate only for about a week, then they did not refill it. The patient is having difficulty to get up and walk. She also admits dry mouth to eat. She admits generalized weakness and pain all over. She is not known allergic to any medication. PAST MEDICAL HISTORY: Includes hypertension, gastroesophageal reflux disease. She was not diabetic, but when she received prednisone they gave her medication to prevent diabetes. The patient is status post cataract surgery. FAMILY HISTORY: Hypertension. The patient denies any tingling, numbness sensation in the extremities. The patient usually walks using a walker until recently. They have to call ambulance for her to manage stairs this morning. She denies any trouble with her bowel or bladder control. PHYSICAL EXAMINATION: Today revealed an elderly female. She is alert, oriented to time, place, person and circumstance and follows commands appropriately, moves all 4 extremities voluntarily where she had generalized muscle weakness, more so in her upper extremities, especially she had significant weakness of rotator cuff muscles. She had hand intrinsic muscle atrophy. Negative Tinel sign over median nerve at the wrist and over ulnar nerve at the wrist and elbow. She had crepitus on attempted movements of her upper extremity joints and both knees with significant pain on range of motion of especially right knee with bilateral knee joint effusion. She had pain free range of motion of both hip joints. She had painful limited movements of her lumbar spine and tenderness to palpation over sacroiliac joint area and straight leg raising test is negative bilaterally. Deep tendon reflexes are decreased overall. She needs some help with bed mobility. I have not tested her transfers or ambulation skills at this time. Her skin is intact at this time. ASSESSMENT: An elderly female with probable rheumatoid arthritis with associated degenerative joint disease changes with bilateral rotator cuff lesions, severe pain in both upper extremities joint lower back pain, most probably from degenerative disk disease and degenerative joint disease of lumbar vertebrae and both knees with knee joint effusion. The patient with known hypertension. RECOMMENDATIONS: To proceed with injecting both knees to help ease her pain to get her up as tolerated, to consider knee braces if the pain in her knees limiting her ability to get up and walk with home health followup when medically stable. Dr. Hood, I appreciate asking me to participate in the care of this interesting patient. I will be glad to follow her with you as needed for her rehabilitation. SHEN WADE MD DR: MOSHE/feroz JOB#: [id number] / [id number] THIERRY Cullen IRA MD
[2018-12-24 07:00] VITALS: BP 153/68
[2018-12-24] MEDS: DOCUSATE SODIUM 100 MG CAPSULE. PO SCH (08:32)
[2018-12-24] MEDS: LOSARTAN POTASSIUM 50 MG TABLET. PO SCH (08:32)
[2018-12-24] MEDS: amLODIPine BESYLATE 5 MG TABLET PO SCH (08:33)
[2018-12-24] MEDS: DICLOFENAC SODIUM 1% TOPICAL GEL 100GM TUBE. TP SCH ×2 (08:33→20:23)
[2018-12-24] MEDS: POLYETHYLENE GLYCOL 3350 17 GM PACKET. PO SCH (08:33)
[2018-12-24] MEDS: PANTOPRAZOLE 40 MG TABLET.DR. PO SCH (08:33)
[2018-12-24] MEDS: predniSONE 10 MG TABLET PO SCH (08:33)
--- NOTE | 2018-12-24 09:38 | PDOC ---
PROGRESS NOTES Subjective Subjective She feels better and slept good last night. Objective Objective Vital Signs Date Time Temp Pulse Resp B/P (MAP) Pulse Ox O2 Delivery O2 Flow Rate FiO2 12/24/18 08:33 74 153/68 12/24/18 08:00 Room Air 12/24/18 07:00 98.0 16 97 98.0 Intake and Output 12/24/18 07:00 Intake Total 0 ml Balance 0 ml Intake Oral 0 ml # Voids 1 Physical Exam Physical Exam She is alert and in no acute distress and receiving IV fluids and she got up and made a few steps at bedside with roller walker taking her own time despite continued joint stiffness of her knees,shoulders,elbows and wrists. Assessment Assessment Problems Medical Problems: (1) Anemia Status: Acute (2) Arthralgia Status: Acute (3) Generalized weakness Status: Acute Plan Plan of Care To SNF when medically stable and she can benefit from bilateral hinge knee braces for use while up. Comment Review of Relevant I have reviewed the following items janine (where applicable) has been applied. Labs Laboratory Tests Test 12/23/18 10:49 12/23/18 11:01 12/23/18 11:25 Urine Collection Type U cath Urine Color Yellow Urine Clarity Clear Urine pH 5.5 Urine Specific Fulda 1.015 Urine Protein Negative mg/dL (NEG-TRACE) Urine Glucose (UA) Negative mg/dL (NEG) Urine Ketones (Stick) Negative mg/dL (NEG) Urine Blood Negative (NEG) Urine Nitrite Negative (NEG) Urine Bilirubin Negative (NEG) Urine Urobilinogen Dipstick 1.0 mg/dL (0.2 mg/dL) Urine Leukocyte Esterase Trace (NEG) Urine RBC 0 /HPF (0-2) Urine WBC 0 /HPF (0-4) Urine Squamous Epithelial Cells Few /LPF Urine Bacteria 0 /HPF (0-FEW) White Blood Count 6.6 x10^3/uL (4.0-11.0) Red Blood Count 3.93 x10^6/uL (3.50-5.40) Hemoglobin 10.2 g/dL (12.0-15.5) Hematocrit 31.4 % (36.0-47.0) Mean Corpuscular Volume 80 fL (79-100) Mean Corpuscular Hemoglobin 26 pg (25-35) Mean Corpuscular Hemoglobin Concent 33 g/dL (31-37) Red Cell Distribution Width 16.8 % (11.5-14.5) Platelet Count 370 x10^3/uL (140-400) Neutrophils (%) (Auto) 68 % (31-73) Lymphocytes (%) (Auto) 19 % (24-48) Monocytes (%) (Auto) 11 % (0-9) Eosinophils (%) (Auto) 2 % (0-3) Basophils (%) (Auto) 1 % (0-3) Neutrophils # (Auto) 4.5 x10^3uL (1.8-7.7) Lymphocytes # (Auto) 1.2 x10^3/uL (1.0-4.8) Monocytes # (Auto) 0.7 x10^3/uL (0.0-1.1) Eosinophils # (Auto) 0.1 x10^3/uL (0.0-0.7) Basophils # (Auto) 0.0 x10^3/uL (0.0-0.2) Sodium Level 134 mmol/L (136-145) Potassium Level 3.9 mmol/L (3.5-5.1) Chloride Level 99 mmol/L (98-107) Carbon Dioxide Level 22 mmol/L (21-32) Anion Gap 13 (6-14) Blood Urea Nitrogen 11 mg/dL (7-20) Creatinine 1.0 mg/dL (0.6-1.0) Estimated GFR (Cockcroft-Gault) 63.9 BUN/Creatinine Ratio 11 (6-20) Glucose Level 100 mg/dL (70-99) Calcium Level 9.2 mg/dL (8.5-10.1) Total Bilirubin 0.7 mg/dL (0.2-1.0) Aspartate Amino Transf (AST/SGOT) 21 U/L (15-37) Alanine Aminotransferase (ALT/SGPT) < 6 U/L (14-59) Alkaline Phosphatase 69 U/L (46-116) Total Protein 7.7 g/dL (6.4-8.2) Albumin 2.6 g/dL (3.4-5.0) Albumin/Globulin Ratio 0.5 (1.0-1.7) Laboratory Tests Test 12/23/18 10:49 12/23/18 11:01 12/23/18 11:25 Urine Collection Type U cath Urine Color Yellow Urine Clarity Clear Urine pH 5.5 Urine Specific Fulda 1.015 Urine Protein Negative mg/dL (NEG-TRACE) Urine Glucose (UA) Negative mg/dL (NEG) Urine Ketones (Stick) Negative mg/dL (NEG) Urine Blood Negative (NEG) Urine Nitrite Negative (NEG) Urine Bilirubin Negative (NEG) Urine Urobilinogen Dipstick 1.0 mg/dL (0.2 mg/dL) Urine Leukocyte Esterase Trace (NEG) Urine RBC 0 /HPF (0-2) Urine WBC 0 /HPF (0-4) Urine Squamous Epithelial Cells Few /LPF Urine Bacteria 0 /HPF (0-FEW) White Blood Count 6.6 x10^3/uL (4.0-11.0) Red Blood Count 3.93 x10^6/uL (3.50-5.40) Hemoglobin 10.2 g/dL (12.0-15.5) Hematocrit 31.4 % (36.0-47.0) Mean Corpuscular Volume 80 fL (79-100) Mean Corpuscular Hemoglobin 26 pg (25-35) Mean Corpuscular Hemoglobin Concent 33 g/dL (31-37) Red Cell Distribution Width 16.8 % (11.5-14.5) Platelet Count 370 x10^3/uL (140-400) Neutrophils (%) (Auto) 68 % (31-73) Lymphocytes (%) (Auto) 19 % (24-48) Monocytes (%) (Auto) 11 % (0-9) Eosinophils (%) (Auto) 2 % (0-3) Basophils (%) (Auto) 1 % (0-3) Neutrophils # (Auto) 4.5 x10^3uL (1.8-7.7) Lymphocytes # (Auto) 1.2 x10^3/uL (1.0-4.8) Monocytes # (Auto) 0.7 x10^3/uL (0.0-1.1) Eosinophils # (Auto) 0.1 x10^3/uL (0.0-0.7) Basophils # (Auto) 0.0 x10^3/uL (0.0-0.2) Sodium Level 134 mmol/L (136-145) Potassium Level 3.9 mmol/L (3.5-5.1) Chloride Level 99 mmol/L (98-107) Carbon Dioxide Level 22 mmol/L (21-32) Anion Gap 13 (6-14) Blood Urea Nitrogen 11 mg/dL (7-20) Creatinine 1.0 mg/dL (0.6-1.0) Estimated GFR (Cockcroft-Gault) 63.9 BUN/Creatinine Ratio 11 (6-20) Glucose Level 100 mg/dL (70-99) Calcium Level 9.2 mg/dL (8.5-10.1) Total Bilirubin 0.7 mg/dL (0.2-1.0) Aspartate Amino Transf (AST/SGOT) 21 U/L (15-37) Alanine Aminotransferase (ALT/SGPT) < 6 U/L (14-59) Alkaline Phosphatase 69 U/L (46-116) Total Protein 7.7 g/dL (6.4-8.2) Albumin 2.6 g/dL (3.4-5.0) Albumin/Globulin Ratio 0.5 (1.0-1.7) Medications Current Medications Fentanyl Citrate (Fentanyl 2ml Vial) 50 mcg 1X ONCE IV Last administered on 12/23/18 11:20; Start 12/23/18 at 10:30; Stop 12/23/18 at 10:32; Status DC Amlodipine Besylate (Norvasc) 5 mg DAILY PO Last administered on 12/24/18at 08:33; Start 12/23/18 at 14:00 Pantoprazole Sodium (Protonix) 40 mg DAILY PO Last administered on 12/24/18 08:33; Start 12/23/18 at 16:30 Losartan Potassium (Cozaar) 100 mg DAILY PO Last administered on 12/24/18at 08:32; Start 12/23/18 at 14:00 Docusate Sodium (Colace) 100 mg DAILY PO ; Start 12/23/18 at 14:00 Docusate Sodium (Colace) 100 mg PRN DAILY PRN PO CONSTIPATION (1st Choice); Start 12/23/18 at 14:00 Polyethylene Glycol (miraLAX PACKET) 17 gm DAILY PO Last administered on 12/24/18at 08:33; Start 12/23/18 at 14:00 Polyethylene Glycol (miraLAX PACKET) 17 gm PRN DAILY PRN PO CONSTIPATION (2nd Choice); Start 12/23/18 at 14:00 Prednisone (Prednisone) 5 mg DAILY PO Last administered on 12/23/18at 14:58; Start 12/23/18 at 14:00; Stop 12/23/18 at 15:09; Status DC Enoxaparin Sodium (Lovenox Per Pharmacy Prophylaxis Dosing) 1 each PRN DAILY PRN MC SEE COMMENTS; Start 12/23/18 at 15:15 Sodium Chloride (Saline Mist Nasal) 1 pepe PRN Q1HR PRN NS NASAL CONGESTION; Start 12/23/18 at 15:15 Saliva Substitute (Biotene Moisturizing Mouth) 2 spray PRN Q15MIN PRN PO DRY MOUTH; Start 12/23/18 at 15:15 Potassium Chloride/Dextrose/ Sod Cl 1,000 ml @ 80 mls/hr 1X ONCE IV Last administered on 12/23/18at 16:33; Start 12/23/18 at 15:15; Stop 12/24/18 at 03:44; Status DC Enoxaparin Sodium (Lovenox 30mg Syringe) 30 mg Q24H SQ Last administered on 12/23/18at 16:33; Start 12/23/18 at 16:00 Oxycodone/ Acetaminophen (Percocet 5/325) 1 tab PRN Q6HRS PRN PO PAIN; Start 12/23/18 at 15:15 Methylprednisolone Acetate (DEPO-Medrol 40MG VIAL) 40 mg 1X ONCE IM Last administered on 12/23/18 17:30; Start 12/23/18 at 17:30; Stop 12/23/18 at 17:31; Status DC Methylprednisolone Acetate (DEPO-Medrol 40MG VIAL) 40 mg 1X ONCE INJ Last administered on 12/23/18at 17:30; Start 12/23/18 at 17:30; Stop 12/23/18 at 17:31; Status DC Bupivacaine HCl (Sensorcaine-Mpf 0.25%) 10 ml 1X ONCE IJ Last administered on 12/23/18at 17:30; Start 12/23/18 at 17:30; Stop 12/23/18 at 17:31; Status DC Diclofenac Sodium (Voltaren) 1 pepe BID TP Last administered on 12/24/18at 08:33; Start 12/23/18 at 21:00 Prednisone (Prednisone) 10 mg DAILY PO Last administered on 12/24/18at 08:33; Start 12/24/18 at 09:00 Ferrous Sulfate (Feosol) 325 mg BID PO ; Start 12/24/18 at 21:00; Status UNV Active Scripts Active Tamiflu (Oseltamivir Phosphate) 30 Mg Capsule 1 Cap PO BID 5 Days Protonix (Pantoprazole Sodium) 40 Mg Tablet.dr 1 Tab PO DAILY Norvasc (Amlodipine Besylate) 5 Mg Tablet 5 Mg PO DAILY Reported Losartan Potassium 100 Mg Tablet 100 Mg PO DAILY Prednisone 2.5 Mg Tablet 2 Tab PO DAILY Tylenol (Acetaminophen) 325 Mg Tablet 1,000 Mg PO DAILY Vitals/I & O Vital Sign - Last 24 Hours 12/23/18 12/23/18 12/23/18 12/23/18 10:29 11:20 11:30 12:30 Temp 98.6 98.6 Pulse 94 92 90 Resp 16 16 16 15 Pulse Ox 97 99 99 99 O2 Delivery Room Air Room Air 12/23/18 12/23/18 12/23/18 12/23/18 13:30 14:58 14:58 15:06 Temp 97.9 97.9 Pulse 92 86 Resp 17 17 B/P (MAP) 173/80 173/80 173/80 (111) Pulse Ox 98 100 O2 Delivery Room Air 12/23/18 12/23/18 12/23/18 12/24/18 15:10 19:00 23:00 03:00 Temp 98.6 98.1 98.3 98.6 98.1 98.3 Pulse 84 78 73 Resp 18 18 18 B/P (MAP) 121/60 (80) 124/65 (84) 131/68 (89) Pulse Ox 99 100 98 O2 Delivery Room Air Room Air Room Air Room Air 12/24/18 12/24/18 12/24/18 12/24/18 07:00 08:00 08:32 08:33 Temp 98.0 98.0 Pulse 74 74 74 Resp 16 B/P (MAP) 153/68 (96) 153/68 153/68 Pulse Ox 97 O2 Delivery Room Air Room Air Intake and Output 12/23/18 12/23/18 12/24/18 15:00 23:00 07:00 Intake Total 0 ml Balance 0 ml SHEN WADE MD Dec 24, 2018 09:38
[2018-12-24] MEDS ORDERED: FERROUS SULFATE 325 MG TABLET. PO SCH (10:00)
[2018-12-24 11:00] VITALS: BP 143/78
--- NOTE | 2018-12-24 11:53 | PDOC ---
PROGRESS NOTES Chief Complaint Chief Complaint Joint pain and weakness History of Present Illness History of Present Illness The patient was seen resting comfortably in bed today. She is a very pleasant lady. She has no complaints today. Vitals Vitals Vital Signs Date Time Temp Pulse Resp B/P (MAP) Pulse Ox O2 Delivery O2 Flow Rate FiO2 12/24/18 08:33 74 153/68 12/24/18 08:00 Room Air 12/24/18 07:00 98.0 16 97 98.0 Physical Exam General: Alert, Oriented X3, Cooperative, No acute distress Heart: Regular rate, Normal S1, Normal S2, No murmurs Lungs: Clear (No wheezes, rales, or rhonchi), Crackles Abdomen: Soft, No tenderness, No masses Extremities: No edema, Normal pulses, Other (boggy itp joints, lateral deviation of digtis, muscle wasting of hands) Skin: No rashes, No breakdown, No significant lesion Review of Systems Review of Systems Patient denies fevers, chills, N/V, CP, SOB, diarrhea Assessment and Plan Assessmemt and Plan Problems Medical Problems: (1) Anemia Status: Acute (2) Arthralgia Status: Acute (3) Generalized weakness Status: Acute Assessment: Severe joint pain from RA HTN DM (from prednisone) OA GERD Plan: Prednisone Dr. Kebede injected both knees with bupivacaine and methylprednisone on 12/23 Awaiting Rheumatology consult Appreciate Dr. Kebede's input F/u labs PT/OT DVT prophylaxis Continue home meds SNU eval, must stay 3 midnights Comment Review of Relevant I have reviewed the following items janine (where applicable) has been applied. Labs Laboratory Tests Test 12/23/18 10:49 12/23/18 11:01 12/23/18 11:25 Urine Collection Type U cath Urine Color Yellow Urine Clarity Clear Urine pH 5.5 Urine Specific [place] 1.015 Urine Protein Negative mg/dL (NEG-TRACE) Urine Glucose (UA) Negative mg/dL (NEG) Urine Ketones (Stick) Negative mg/dL (NEG) Urine Blood Negative (NEG) Urine Nitrite Negative (NEG) Urine Bilirubin Negative (NEG) Urine Urobilinogen Dipstick 1.0 mg/dL (0.2 mg/dL) Urine Leukocyte Esterase Trace (NEG) Urine RBC 0 /HPF (0-2) Urine WBC 0 /HPF (0-4) Urine Squamous Epithelial Cells Few /LPF Urine Bacteria 0 /HPF (0-FEW) White Blood Count 6.6 x10^3/uL (4.0-11.0) Red Blood Count 3.93 x10^6/uL (3.50-5.40) Hemoglobin 10.2 g/dL (12.0-15.5) Hematocrit 31.4 % (36.0-47.0) Mean Corpuscular Volume 80 fL (79-100) Mean Corpuscular Hemoglobin 26 pg (25-35) Mean Corpuscular Hemoglobin Concent 33 g/dL (31-37) Red Cell Distribution Width 16.8 % (11.5-14.5) Platelet Count 370 x10^3/uL (140-400) Neutrophils (%) (Auto) 68 % (31-73) Lymphocytes (%) (Auto) 19 % (24-48) Monocytes (%) (Auto) 11 % (0-9) Eosinophils (%) (Auto) 2 % (0-3) Basophils (%) (Auto) 1 % (0-3) Neutrophils # (Auto) 4.5 x10^3uL (1.8-7.7) Lymphocytes # (Auto) 1.2 x10^3/uL (1.0-4.8) Monocytes # (Auto) 0.7 x10^3/uL (0.0-1.1) Eosinophils # (Auto) 0.1 x10^3/uL (0.0-0.7) Basophils # (Auto) 0.0 x10^3/uL (0.0-0.2) Sodium Level 134 mmol/L (136-145) Potassium Level 3.9 mmol/L (3.5-5.1) Chloride Level 99 mmol/L (98-107) Carbon Dioxide Level 22 mmol/L (21-32) Anion Gap 13 (6-14) Blood Urea Nitrogen 11 mg/dL (7-20) Creatinine 1.0 mg/dL (0.6-1.0) Estimated GFR (Cockcroft-Gault) 63.9 BUN/Creatinine Ratio 11 (6-20) Glucose Level 100 mg/dL (70-99) Calcium Level 9.2 mg/dL (8.5-10.1) Total Bilirubin 0.7 mg/dL (0.2-1.0) Aspartate Amino Transf (AST/SGOT) 21 U/L (15-37) Alanine Aminotransferase (ALT/SGPT) < 6 U/L (14-59) Alkaline Phosphatase 69 U/L (46-116) Total Protein 7.7 g/dL (6.4-8.2) Albumin 2.6 g/dL (3.4-5.0) Albumin/Globulin Ratio 0.5 (1.0-1.7) Medications Current Medications Fentanyl Citrate (Fentanyl 2ml Vial) 50 mcg 1X ONCE IV Last administered on 12/23/18at 11:20; Start 12/23/18 at 10:30; Stop 12/23/18 at 10:32; Status DC Amlodipine Besylate (Norvasc) 5 mg DAILY PO Last administered on 12/24/18at 08:33; Start 12/23/18 at 14:00 Pantoprazole Sodium (Protonix) 40 mg DAILY PO Last administered on 12/24/18at 08:33; Start 12/23/18 at 16:30 Losartan Potassium (Cozaar) 100 mg DAILY PO Last administered on 12/24/18at 08:32; Start 12/23/18 at 14:00 Docusate Sodium (Colace) 100 mg DAILY PO ; Start 12/23/18 at 14:00 Docusate Sodium (Colace) 100 mg PRN DAILY PRN PO CONSTIPATION (1st Choice); Start 12/23/18 at 14:00 Polyethylene Glycol (miraLAX PACKET) 17 gm DAILY PO Last administered on 12/24/18at 08:33; Start 12/23/18 at 14:00 Polyethylene Glycol (miraLAX PACKET) 17 gm PRN DAILY PRN PO CONSTIPATION (2nd Choice); Start 12/23/18 at 14:00 Prednisone (Prednisone) 5 mg DAILY PO Last administered on 12/23/18at 14:58; Start 12/23/18 at 14:00; Stop 12/23/18 at 15:09; Status DC Enoxaparin Sodium (Lovenox Per Pharmacy Prophylaxis Dosing) 1 each PRN DAILY PRN MC SEE COMMENTS; Start 12/23/18 at 15:15 Sodium Chloride (Saline Mist Nasal) 1 pepe PRN Q1HR PRN NS NASAL CONGESTION; Start 12/23/18 at 15:15 Saliva Substitute (Biotene Moisturizing Mouth) 2 spray PRN Q15MIN PRN PO DRY MOUTH; Start 12/23/18 at 15:15 Potassium Chloride/Dextrose/ Sod Cl 1,000 ml @ 80 mls/hr 1X ONCE IV Last administered on 12/23/18 16:33; Start 12/23/18 at 15:15; Stop 12/24/18 at 03:44; Status DC Enoxaparin Sodium (Lovenox 30mg Syringe) 30 mg Q24H SQ Last administered on 12/23/18at 16:33; Start 12/23/18 at 16:00 Oxycodone/ Acetaminophen (Percocet 5/325) 1 tab PRN Q6HRS PRN PO PAIN; Start 12/23/18 at 15:15 Methylprednisolone Acetate (DEPO-Medrol 40MG VIAL) 40 mg 1X ONCE IM Last administered on 12/23/18 17:30; Start 12/23/18 at 17:30; Stop 12/23/18 at 17:31; Status DC Methylprednisolone Acetate (DEPO-Medrol 40MG VIAL) 40 mg 1X ONCE INJ Last administered on 12/23/18at 17:30; Start 12/23/18 at 17:30; Stop 12/23/18 at 17:31; Status DC Bupivacaine HCl (Sensorcaine-Mpf 0.25%) 10 ml 1X ONCE IJ Last administered on 12/23/18 17:30; Start 12/23/18 at 17:30; Stop 12/23/18 at 17:31; Status DC Diclofenac Sodium (Voltaren) 1 pepe BID TP Last administered on 12/24/18 08:33; Start 12/23/18 at 21:00 Prednisone (Prednisone) 10 mg DAILY PO Last administered on 12/24/18at 08:33; Start 12/24/18 at 09:00 Ferrous Sulfate (Feosol) 325 mg BIDWMEALS PO ; Start 12/24/18 at 10:00; Status Cancel Ferrous Sulfate (Iron Oral Solution) 300 mg BIDWMEALS PO ; Start 12/24/18 at 17:00 Active Scripts Active Tamiflu (Oseltamivir Phosphate) 30 Mg Capsule 1 Cap PO BID 5 Days Protonix (Pantoprazole Sodium) 40 Mg Tablet.dr 1 Tab PO DAILY Norvasc (Amlodipine Besylate) 5 Mg Tablet 5 Mg PO DAILY Reported Losartan Potassium 100 Mg Tablet 100 Mg PO DAILY Prednisone 2.5 Mg Tablet 2 Tab PO DAILY Tylenol (Acetaminophen) 325 Mg Tablet 1,000 Mg PO DAILY Vitals/I & O Vital Sign - Last 24 Hours 12/23/18 12/23/18 12/23/18 12/23/18 12:30 13:30 14:58 14:58 Pulse 90 92 Resp 15 17 B/P (MAP) 173/80 173/80 Pulse Ox 99 98 12/23/18 12/23/18 12/23/18 12/23/18 15:06 15:10 19:00 23:00 Temp 97.9 98.6 98.1 97.9 98.6 98.1 Pulse 86 84 78 Resp 17 18 18 B/P (MAP) 173/80 (111) 121/60 (80) 124/65 (84) Pulse Ox 100 99 100 O2 Delivery Room Air Room Air Room Air Room Air 12/24/18 12/24/18 12/24/18 12/24/18 03:00 07:00 08:00 08:32 Temp 98.3 98.0 98.3 98.0 Pulse 73 74 74 Resp 18 16 B/P (MAP) 131/68 (89) 153/68 (96) 153/68 Pulse Ox 98 97 O2 Delivery Room Air Room Air Room Air 12/24/18 08:33 Pulse 74 B/P (MAP) 153/68 Intake and Output 12/23/18 12/23/18 12/24/18 15:00 23:00 07:00 Intake Total 0 ml Balance 0 ml Nutrition Consultation Dietary Evaluation: Recommendations by RD: Increase Calorie Intake, Protein supplementation Comments: continue diet, offer ensure/glucerna supplements prn Expected Outcomes/Goals: to meet > 75% est nutr needs Interpretation of weight loss: >10% in 6 months Malnutrition Findings: Body Fat Depletion (Non Severe: Mild Depletion Weight Status: Underweight CASTLENIAL K III DO Dec 24, 2018 11:53
[2018-12-24 15:00] VITALS: BP 147/75
[2018-12-24] MEDS: FERROUS SULFATE ORAL 300 MG/5 ML SOLUTION. PO SCH ×2 (16:08→16:12)
[2018-12-24] MEDS: ENOXAPARIN 30 MG/0.3 ML SYRINGE. SQ SCH (16:09)
[2018-12-24 19:00] VITALS: BP 135/70
[2018-12-24 23:00] VITALS: BP 131/71
[2018-12-25 03:00] VITALS: BP 128/63
[2018-12-25 04:38] LABS: BASO % 0 % (0-3); EOS % 0 % (0-3); HEMATOCRIT 26.5 % (36.0-47.0); HEMOGLOBIN 8.5 g/dL (12.0-15.5); LYMPH # 1.5 x10^3/uL (1.0-4.8); LYMPH % 11 % (24-48); MEAN CORPUSCULAR HEMOGLOBIN 25 pg (25-35); MEAN CORPUSCULAR HGB CONC 32 g/dL (31-37); MEAN CORPUSCULAR VOLUME 79 fL (79-100); MONO # 0.7 x10^3/uL (0.0-1.1); MONO % 5 % (0-9); NEUT # 11.4 x10^3uL (1.8-7.7); NEUT % 84 % (31-73); PLATELET COUNT 314 x10^3/uL (140-400); RED BLOOD COUNT 3.34 x10^6/uL (3.50-5.40); RED CELL DISTRIBUTION WIDTH 16.4 % (11.5-14.5); WHITE BLOOD COUNT 13.7 x10^3/uL (4.0-11.0)
[2018-12-25 05:00] LABS: CALCIUM 8.7 mg/dL (8.5-10.1); CREATININE 1.2 mg/dL (0.6-1.0); GFR 51.8; POTASSIUM 4.5 mmol/L (3.5-5.1)
[2018-12-25 07:00] VITALS: BP 140/70
[2018-12-25] MEDS: FERROUS SULFATE ORAL 300 MG/5 ML SOLUTION. PO SCH ×2 (08:00→16:19)
[2018-12-25] MEDS: DOCUSATE SODIUM 100 MG CAPSULE. PO SCH (08:06)
[2018-12-25] MEDS: PANTOPRAZOLE 40 MG TABLET.DR. PO SCH (08:07)
[2018-12-25] MEDS: predniSONE 10 MG TABLET PO SCH (08:08)
[2018-12-25] MEDS: amLODIPine BESYLATE 5 MG TABLET PO SCH (08:08)
[2018-12-25] MEDS: LOSARTAN POTASSIUM 50 MG TABLET. PO SCH (08:08)
[2018-12-25] MEDS: POLYETHYLENE GLYCOL 3350 17 GM PACKET. PO SCH (08:08)
[2018-12-25] MEDS: DICLOFENAC SODIUM 1% TOPICAL GEL 100GM TUBE. TP SCH ×2 (08:09→21:12)
--- NOTE | 2018-12-25 09:59 | PDOC ---
PROGRESS NOTES Subjective Subjective She admits stiffness of her knees,shoulders,and hands. Objective Objective Vital Signs Date Time Temp Pulse Resp B/P (MAP) Pulse Ox O2 Delivery O2 Flow Rate FiO2 12/25/18 08:08 86 140/70 12/25/18 08:00 Room Air 12/25/18 07:00 98.3 18 100 98.3 Intake and Output 12/25/18 06:59 Intake Total 580 ml Balance 580 ml Intake Oral 580 ml # Voids 5 # Bowel Movements 1 Physical Exam Physical Exam She is alert,supine in bed and does not seem to be in any acute distress. She did walk for 15' with physical therapy yesterday with roller walker. She can benefit from trial of hinge knee braces to both knees. Assessment Assessment Problems Medical Problems: (1) Anemia Status: Acute (2) Arthralgia Status: Acute (3) Generalized weakness Status: Acute Plan Plan of Care To SNF when medically stable. Comment Review of Relevant I have reviewed the following items janine (where applicable) has been applied. Labs Laboratory Tests Test 12/23/18 10:49 12/23/18 11:01 12/23/18 11:25 12/24/18 11:56 Urine Collection Type U cath Urine Color Yellow Urine Clarity Clear Urine pH 5.5 Urine Specific [place] 1.015 Urine Protein Negative mg/dL (NEG-TRACE) Urine Glucose (UA) Negative mg/dL (NEG) Urine Ketones (Stick) Negative mg/dL (NEG) Urine Blood Negative (NEG) Urine Nitrite Negative (NEG) Urine Bilirubin Negative (NEG) Urine Urobilinogen Dipstick 1.0 mg/dL (0.2 mg/dL) Urine Leukocyte Esterase Trace (NEG) Urine RBC 0 /HPF (0-2) Urine WBC 0 /HPF (0-4) Urine Squamous Epithelial Cells Few /LPF Urine Bacteria 0 /HPF (0-FEW) White Blood Count 6.6 x10^3/uL (4.0-11.0) Red Blood Count 3.93 x10^6/uL (3.50-5.40) Hemoglobin 10.2 g/dL (12.0-15.5) Hematocrit 31.4 % (36.0-47.0) Mean Corpuscular Volume 80 fL (79-100) Mean Corpuscular Hemoglobin 26 pg (25-35) Mean Corpuscular Hemoglobin Concent 33 g/dL (31-37) Red Cell Distribution Width 16.8 % (11.5-14.5) Platelet Count 370 x10^3/uL (140-400) Neutrophils (%) (Auto) 68 % (31-73) Lymphocytes (%) (Auto) 19 % (24-48) Monocytes (%) (Auto) 11 % (0-9) Eosinophils (%) (Auto) 2 % (0-3) Basophils (%) (Auto) 1 % (0-3) Neutrophils # (Auto) 4.5 x10^3uL (1.8-7.7) Lymphocytes # (Auto) 1.2 x10^3/uL (1.0-4.8) Monocytes # (Auto) 0.7 x10^3/uL (0.0-1.1) Eosinophils # (Auto) 0.1 x10^3/uL (0.0-0.7) Basophils # (Auto) 0.0 x10^3/uL (0.0-0.2) Sodium Level 134 mmol/L (136-145) Potassium Level 3.9 mmol/L (3.5-5.1) Chloride Level 99 mmol/L (98-107) Carbon Dioxide Level 22 mmol/L (21-32) Anion Gap 13 (6-14) Blood Urea Nitrogen 11 mg/dL (7-20) Creatinine 1.0 mg/dL (0.6-1.0) Estimated GFR (Cockcroft-Gault) 63.9 BUN/Creatinine Ratio 11 (6-20) Glucose Level 100 mg/dL (70-99) Calcium Level 9.2 mg/dL (8.5-10.1) Total Bilirubin 0.7 mg/dL (0.2-1.0) Aspartate Amino Transf (AST/SGOT) 21 U/L (15-37) Alanine Aminotransferase (ALT/SGPT) < 6 U/L (14-59) Alkaline Phosphatase 69 U/L (46-116) Total Protein 7.7 g/dL (6.4-8.2) Albumin 2.6 g/dL (3.4-5.0) Albumin/Globulin Ratio 0.5 (1.0-1.7) Erythrocyte Sedimentation Rate 104 (0-25) Uric Acid 5.5 mg/dL (2.6-6.0) Test 12/25/18 03:40 White Blood Count 13.7 x10^3/uL (4.0-11.0) Red Blood Count 3.34 x10^6/uL (3.50-5.40) Hemoglobin 8.5 g/dL (12.0-15.5) Hematocrit 26.5 % (36.0-47.0) Mean Corpuscular Volume 79 fL (79-100) Mean Corpuscular Hemoglobin 25 pg (25-35) Mean Corpuscular Hemoglobin Concent 32 g/dL (31-37) Red Cell Distribution Width 16.4 % (11.5-14.5) Platelet Count 314 x10^3/uL (140-400) Neutrophils (%) (Auto) 84 % (31-73) Lymphocytes (%) (Auto) 11 % (24-48) Monocytes (%) (Auto) 5 % (0-9) Eosinophils (%) (Auto) 0 % (0-3) Basophils (%) (Auto) 0 % (0-3) Neutrophils # (Auto) 11.4 x10^3uL (1.8-7.7) Lymphocytes # (Auto) 1.5 x10^3/uL (1.0-4.8) Monocytes # (Auto) 0.7 x10^3/uL (0.0-1.1) Eosinophils # (Auto) 0.0 x10^3/uL (0.0-0.7) Basophils # (Auto) 0.0 x10^3/uL (0.0-0.2) Sodium Level 134 mmol/L (136-145) Potassium Level 4.5 mmol/L (3.5-5.1) Chloride Level 101 mmol/L (98-107) Carbon Dioxide Level 24 mmol/L (21-32) Anion Gap 9 (6-14) Blood Urea Nitrogen 23 mg/dL (7-20) Creatinine 1.2 mg/dL (0.6-1.0) Estimated GFR (Cockcroft-Gault) 51.8 Glucose Level 138 mg/dL (70-99) Calcium Level 8.7 mg/dL (8.5-10.1) Laboratory Tests Test 12/24/18 11:56 12/25/18 03:40 Erythrocyte Sedimentation Rate 104 (0-25) Uric Acid 5.5 mg/dL (2.6-6.0) White Blood Count 13.7 x10^3/uL (4.0-11.0) Red Blood Count 3.34 x10^6/uL (3.50-5.40) Hemoglobin 8.5 g/dL (12.0-15.5) Hematocrit 26.5 % (36.0-47.0) Mean Corpuscular Volume 79 fL (79-100) Mean Corpuscular Hemoglobin 25 pg (25-35) Mean Corpuscular Hemoglobin Concent 32 g/dL (31-37) Red Cell Distribution Width 16.4 % (11.5-14.5) Platelet Count 314 x10^3/uL (140-400) Neutrophils (%) (Auto) 84 % (31-73) Lymphocytes (%) (Auto) 11 % (24-48) Monocytes (%) (Auto) 5 % (0-9) Eosinophils (%) (Auto) 0 % (0-3) Basophils (%) (Auto) 0 % (0-3) Neutrophils # (Auto) 11.4 x10^3uL (1.8-7.7) Lymphocytes # (Auto) 1.5 x10^3/uL (1.0-4.8) Monocytes # (Auto) 0.7 x10^3/uL (0.0-1.1) Eosinophils # (Auto) 0.0 x10^3/uL (0.0-0.7) Basophils # (Auto) 0.0 x10^3/uL (0.0-0.2) Sodium Level 134 mmol/L (136-145) Potassium Level 4.5 mmol/L (3.5-5.1) Chloride Level 101 mmol/L (98-107) Carbon Dioxide Level 24 mmol/L (21-32) Anion Gap 9 (6-14) Blood Urea Nitrogen 23 mg/dL (7-20) Creatinine 1.2 mg/dL (0.6-1.0) Estimated GFR (Cockcroft-Gault) 51.8 Glucose Level 138 mg/dL (70-99) Calcium Level 8.7 mg/dL (8.5-10.1) Microbiology 12/23/18 Urine Culture - Final, Complete 12/23/18 Urine Culture Result 1 (OTILIA) - Final, Complete Medications Current Medications Fentanyl Citrate (Fentanyl 2ml Vial) 50 mcg 1X ONCE IV Last administered on 12/23/18at 11:20; Start 12/23/18 at 10:30; Stop 12/23/18 at 10:32; Status DC Amlodipine Besylate (Norvasc) 5 mg DAILY PO Last administered on 12/25/18at 08:08; Start 12/23/18 at 14:00 Pantoprazole Sodium (Protonix) 40 mg DAILY PO Last administered on 12/25/18at 08:07; Start 12/23/18 at 16:30 Losartan Potassium (Cozaar) 100 mg DAILY PO Last administered on 12/25/18at 08:08; Start 12/23/18 at 14:00 Docusate Sodium (Colace) 100 mg DAILY PO ; Start 12/23/18 at 14:00 Docusate Sodium (Colace) 100 mg PRN DAILY PRN PO CONSTIPATION (1st Choice); Start 12/23/18 at 14:00 Polyethylene Glycol (miraLAX PACKET) 17 gm DAILY PO Last administered on at 08:08; Start 12/23/18 at 14:00 Polyethylene Glycol (miraLAX PACKET) 17 gm PRN DAILY PRN PO CONSTIPATION (2nd Choice); Start 12/23/18 at 14:00 Prednisone (Prednisone) 5 mg DAILY PO Last administered on 12/23/18at 14:58; Start 12/23/18 at 14:00; Stop 12/23/18 at 15:09; Status DC Enoxaparin Sodium (Lovenox Per Pharmacy Prophylaxis Dosing) 1 each PRN DAILY PRN MC SEE COMMENTS; Start 12/23/18 at 15:15 Sodium Chloride (Saline Mist Nasal) 1 pepe PRN Q1HR PRN NS NASAL CONGESTION; Start 12/23/18 at 15:15 Saliva Substitute (Biotene Moisturizing Mouth) 2 spray PRN Q15MIN PRN PO DRY MOUTH; Start 12/23/18 at 15:15 Potassium Chloride/Dextrose/ Sod Cl 1,000 ml @ 80 mls/hr 1X ONCE IV Last administered on 12/23/18at 16:33; Start 12/23/18 at 15:15; Stop 12/24/18 at 03:44; Status DC Enoxaparin Sodium (Lovenox 30mg Syringe) 30 mg Q24H SQ Last administered on 12/24/18at 16:09; Start 12/23/18 at 16:00 Oxycodone/ Acetaminophen (Percocet 5/325) 1 tab PRN Q6HRS PRN PO PAIN; Start 12/23/18 at 15:15 Methylprednisolone Acetate (DEPO-Medrol 40MG VIAL) 40 mg 1X ONCE IM Last administered on 12/23/18at 17:30; Start 12/23/18 at 17:30; Stop 12/23/18 at 17:31; Status DC Methylprednisolone Acetate (DEPO-Medrol 40MG VIAL) 40 mg 1X ONCE INJ Last administered on 12/23/18at 17:30; Start 12/23/18 at 17:30; Stop 12/23/18 at 17:31; Status DC Bupivacaine HCl (Sensorcaine-Mpf 0.25%) 10 ml 1X ONCE IJ Last administered on 12/23/18at 17:30; Start 12/23/18 at 17:30; Stop 12/23/18 at 17:31; Status DC Diclofenac Sodium (Voltaren) 1 pepe BID TP Last administered on 12/25/18at 08:09; Start 12/23/18 at 21:00 Prednisone (Prednisone) 10 mg DAILY PO Last administered on 12/25/18at 08:08; Start 12/24/18 at 09:00 Ferrous Sulfate (Feosol) 325 mg BIDWMEALS PO ; Start 12/24/18 at 10:00; Status Cancel Ferrous Sulfate (Iron Oral Solution) 300 mg BIDWMEALS PO ; Start 12/24/18 at 17:00 Active Scripts Active Tamiflu (Oseltamivir Phosphate) 30 Mg Capsule 1 Cap PO BID 5 Days Protonix (Pantoprazole Sodium) 40 Mg Tablet. 1 Tab PO DAILY Norvasc (Amlodipine Besylate) 5 Mg Tablet 5 Mg PO DAILY Reported Losartan Potassium 100 Mg Tablet 100 Mg PO DAILY Prednisone 2.5 Mg Tablet 2 Tab PO DAILY Tylenol (Acetaminophen) 325 Mg Tablet 1,000 Mg PO DAILY Vitals/I & O Vital Sign - Last 24 Hours 12/24/18 12/24/18 12/24/18 12/24/18 11:00 15:00 19:00 19:34 Temp 97.7 98.1 97.8 97.7 98.1 97.8 Pulse 81 82 83 Resp 18 17 18 B/P (MAP) 143/78 (99) 147/75 (99) 135/70 (91) Pulse Ox 100 100 99 O2 Delivery Room Air Room Air Room Air Room Air 12/24/18 12/25/18 12/25/18 12/25/18 23:00 03:00 07:00 08:00 Temp 98.1 98.0 98.3 98.1 98.0 98.3 Pulse 80 76 86 Resp 18 18 B/P (MAP) 131/71 (91) 128/63 (84) 140/70 (93) Pulse Ox 100 98 100 O2 Delivery Room Air Room Air Room Air Room Air 12/25/18 12/25/18 08:08 08:08 Pulse 86 86 B/P (MAP) 140/70 140/70 Intake and Output 12/24/18 12/24/18 12/25/18 14:59 22:59 06:59 Intake Total 300 ml 100 ml 180 ml Balance 300 ml 100 ml 180 ml Nutrition Consultation Dietary Evaluation: Recommendations by RD: Increase Calorie Intake, Protein supplementation Comments: continue diet, offer ensure/glucerna supplements prn Expected Outcomes/Goals: to meet > 75% est nutr needs Interpretation of weight loss: >10% in 6 months Malnutrition Findings: Body Fat Depletion (Non Severe: Mild Depletion Weight Status: Underweight SHEN WADE MD Dec 25, 2018 09:59
[2018-12-25 11:00] VITALS: BP 123/71
[2018-12-25] MEDS ORDERED: TEMAZEPAM 7.5 MG CAPSULE PO PRN (11:00)
--- NOTE | 2018-12-25 11:00 | PDOC ---
PROGRESS NOTES Chief Complaint Chief Complaint Joint pain and weakness History of Present Illness History of Present Illness The patient was seen resting in bed today. She is a very pleasant lady. She states her pain is worse today and she is having trouble sleeping. Vitals Vitals Vital Signs Date Time Temp Pulse Resp B/P (MAP) Pulse Ox O2 Delivery O2 Flow Rate FiO2 12/25/18 08:08 86 140/70 12/25/18 08:00 Room Air 12/25/18 07:00 98.3 18 100 98.3 Physical Exam General: Alert, Oriented X3, Cooperative, No acute distress Heart: Regular rate, Normal S1, Normal S2, No murmurs Lungs: Clear (No wheezes, rales, or rhonchi), Crackles Abdomen: Soft, No tenderness, No masses Extremities: No edema, Normal pulses, Other (boggy itp joints, lateral deviation of digtis, muscle wasting of hands) Skin: No rashes, No breakdown, No significant lesion Labs LABS Laboratory Tests Test 12/24/18 11:56 12/25/18 03:40 Erythrocyte Sedimentation Rate 104 (0-25) Uric Acid 5.5 mg/dL (2.6-6.0) White Blood Count 13.7 x10^3/uL (4.0-11.0) Red Blood Count 3.34 x10^6/uL (3.50-5.40) Hemoglobin 8.5 g/dL (12.0-15.5) Hematocrit 26.5 % (36.0-47.0) Mean Corpuscular Volume 79 fL (79-100) Mean Corpuscular Hemoglobin 25 pg (25-35) Mean Corpuscular Hemoglobin Concent 32 g/dL (31-37) Red Cell Distribution Width 16.4 % (11.5-14.5) Platelet Count 314 x10^3/uL (140-400) Neutrophils (%) (Auto) 84 % (31-73) Lymphocytes (%) (Auto) 11 % (24-48) Monocytes (%) (Auto) 5 % (0-9) Eosinophils (%) (Auto) 0 % (0-3) Basophils (%) (Auto) 0 % (0-3) Neutrophils # (Auto) 11.4 x10^3uL (1.8-7.7) Lymphocytes # (Auto) 1.5 x10^3/uL (1.0-4.8) Monocytes # (Auto) 0.7 x10^3/uL (0.0-1.1) Eosinophils # (Auto) 0.0 x10^3/uL (0.0-0.7) Basophils # (Auto) 0.0 x10^3/uL (0.0-0.2) Sodium Level 134 mmol/L (136-145) Potassium Level 4.5 mmol/L (3.5-5.1) Chloride Level 101 mmol/L (98-107) Carbon Dioxide Level 24 mmol/L (21-32) Anion Gap 9 (6-14) Blood Urea Nitrogen 23 mg/dL (7-20) Creatinine 1.2 mg/dL (0.6-1.0) Estimated GFR (Cockcroft-Gault) 51.8 Glucose Level 138 mg/dL (70-99) Calcium Level 8.7 mg/dL (8.5-10.1) Review of Systems Review of Systems Patient complains of worsening joint paint and insomnia. She denies fevers, chills, N/V, CP, SOB, diarrhea. Assessment and Plan Assessmemt and Plan Problems Medical Problems: (1) Anemia Status: Acute (2) Arthralgia Status: Acute (3) Generalized weakness Status: Acute Assessment: Severe joint pain from RA HTN DM (from prednisone) OA GERD Plan: Prednisone- reactive leukocytosis Restoril 7.[address] for insomnia [address] Kebede injected both knees with bupivacaine and methylprednisone on 12/23, discussed knee braces Awaiting Rheumatology consult Appreciate Dr. Kebede's input F/u labs PT/OT DVT prophylaxis Continue home meds SNU eval, must stay 3 midnights- DC to [facility] on Thursday Comment Review of Relevant I have reviewed the following items janine (where applicable) has been applied. Labs Laboratory Tests Test 12/23/18 11:01 12/23/18 11:25 12/24/18 11:56 12/25/18 03:40 White Blood Count 6.6 x10^3/uL (4.0-11.0) 13.7 x10^3/uL (4.0-11.0) Red Blood Count 3.93 x10^6/uL (3.50-5.40) 3.34 x10^6/uL (3.50-5.40) Hemoglobin 10.2 g/dL (12.0-15.5) 8.5 g/dL (12.0-15.5) Hematocrit 31.4 % (36.0-47.0) 26.5 % (36.0-47.0) Mean Corpuscular Volume 80 fL (79-100) 79 fL (79-100) Mean Corpuscular Hemoglobin 26 pg (25-35) 25 pg (25-35) Mean Corpuscular Hemoglobin Concent 33 g/dL (31-37) 32 g/dL (31-37) Red Cell Distribution Width 16.8 % (11.5-14.5) 16.4 % (11.5-14.5) Platelet Count 370 x10^3/uL (140-400) 314 x10^3/uL (140-400) Neutrophils (%) (Auto) 68 % (31-73) 84 % (31-73) Lymphocytes (%) (Auto) 19 % (24-48) 11 % (24-48) Monocytes (%) (Auto) 11 % (0-9) 5 % (0-9) Eosinophils (%) (Auto) 2 % (0-3) 0 % (0-3) Basophils (%) (Auto) 1 % (0-3) 0 % (0-3) Neutrophils # (Auto) 4.5 x10^3uL (1.8-7.7) 11.4 x10^3uL (1.8-7.7) Lymphocytes # (Auto) 1.2 x10^3/uL (1.0-4.8) 1.5 x10^3/uL (1.0-4.8) Monocytes # (Auto) 0.7 x10^3/uL (0.0-1.1) 0.7 x10^3/uL (0.0-1.1) Eosinophils # (Auto) 0.1 x10^3/uL (0.0-0.7) 0.0 x10^3/uL (0.0-0.7) Basophils # (Auto) 0.0 x10^3/uL (0.0-0.2) 0.0 x10^3/uL (0.0-0.2) Sodium Level 134 mmol/L (136-145) 134 mmol/L (136-145) Potassium Level 3.9 mmol/L (3.5-5.1) 4.5 mmol/L (3.5-5.1) Chloride Level 99 mmol/L (98-107) 101 mmol/L (98-107) Carbon Dioxide Level 22 mmol/L (21-32) 24 mmol/L (21-32) Anion Gap 13 (6-14) 9 (6-14) Blood Urea Nitrogen 11 mg/dL (7-20) 23 mg/dL (7-20) Creatinine 1.0 mg/dL (0.6-1.0) 1.2 mg/dL (0.6-1.0) Estimated GFR (Cockcroft-Gault) 63.9 51.8 BUN/Creatinine Ratio 11 (6-20) Glucose Level 100 mg/dL (70-99) 138 mg/dL (70-99) Calcium Level 9.2 mg/dL (8.5-10.1) 8.7 mg/dL (8.5-10.1) Total Bilirubin 0.7 mg/dL (0.2-1.0) Aspartate Amino Transf (AST/SGOT) 21 U/L (15-37) Alanine Aminotransferase (ALT/SGPT) < 6 U/L (14-59) Alkaline Phosphatase 69 U/L (46-116) Total Protein 7.7 g/dL (6.4-8.2) Albumin 2.6 g/dL (3.4-5.0) Albumin/Globulin Ratio 0.5 (1.0-1.7) Erythrocyte Sedimentation Rate 104 (0-25) Uric Acid 5.5 mg/dL (2.6-6.0) Laboratory Tests Test 12/24/18 11:56 12/25/18 03:40 Erythrocyte Sedimentation Rate 104 (0-25) Uric Acid 5.5 mg/dL (2.6-6.0) White Blood Count 13.7 x10^3/uL (4.0-11.0) Red Blood Count 3.34 x10^6/uL (3.50-5.40) Hemoglobin 8.5 g/dL (12.0-15.5) Hematocrit 26.5 % (36.0-47.0) Mean Corpuscular Volume 79 fL (79-100) Mean Corpuscular Hemoglobin 25 pg (25-35) Mean Corpuscular Hemoglobin Concent 32 g/dL (31-37) Red Cell Distribution Width 16.4 % (11.5-14.5) Platelet Count 314 x10^3/uL (140-400) Neutrophils (%) (Auto) 84 % (31-73) Lymphocytes (%) (Auto) 11 % (24-48) Monocytes (%) (Auto) 5 % (0-9) Eosinophils (%) (Auto) 0 % (0-3) Basophils (%) (Auto) 0 % (0-3) Neutrophils # (Auto) 11.4 x10^3uL (1.8-7.7) Lymphocytes # (Auto) 1.5 x10^3/uL (1.0-4.8) Monocytes # (Auto) 0.7 x10^3/uL (0.0-1.1) Eosinophils # (Auto) 0.0 x10^3/uL (0.0-0.7) Basophils # (Auto) 0.0 x10^3/uL (0.0-0.2) Sodium Level 134 mmol/L (136-145) Potassium Level 4.5 mmol/L (3.5-5.1) Chloride Level 101 mmol/L (98-107) Carbon Dioxide Level 24 mmol/L (21-32) Anion Gap 9 (6-14) Blood Urea Nitrogen 23 mg/dL (7-20) Creatinine 1.2 mg/dL (0.6-1.0) Estimated GFR (Cockcroft-Gault) 51.8 Glucose Level 138 mg/dL (70-99) Calcium Level 8.7 mg/dL (8.5-10.1) Microbiology 12/23/18 Urine Culture - Final, Complete 12/23/18 Urine Culture Result 1 (OTILIA) - Final, Complete Medications Current Medications Fentanyl Citrate (Fentanyl 2ml Vial) 50 mcg 1X ONCE IV Last administered on 12/23/18at 11:20; Start 12/23/18 at 10:30; Stop 12/23/18 at 10:32; Status DC Amlodipine Besylate (Norvasc) 5 mg DAILY PO Last administered on 12/25/18at 08:08; Start 12/23/18 at 14:00 Pantoprazole Sodium (Protonix) 40 mg DAILY PO Last administered on 12/25/18at 08:07; Start 12/23/18 at 16:30 Losartan Potassium (Cozaar) 100 mg DAILY PO Last administered on 12/25/18at 08:08; Start 12/23/18 at 14:00 Docusate Sodium (Colace) 100 mg DAILY PO ; Start 12/23/18 at 14:00 Docusate Sodium (Colace) 100 mg PRN DAILY PRN PO CONSTIPATION (1st Choice); Start 12/23/18 at 14:00 Polyethylene Glycol (miraLAX PACKET) 17 gm DAILY PO Last administered on 12/25/18 08:08; Start 12/23/18 at 14:00 Polyethylene Glycol (miraLAX PACKET) 17 gm PRN DAILY PRN PO CONSTIPATION (2nd Choice); Start 12/23/18 at 14:00 Prednisone (Prednisone) 5 mg DAILY PO Last administered on 12/23/18at 14:58; Start 12/23/18 at 14:00; Stop 12/23/18 at 15:09; Status DC Enoxaparin Sodium (Lovenox Per Pharmacy Prophylaxis Dosing) 1 each PRN DAILY PRN MC SEE COMMENTS; Start 12/23/18 at 15:15 Sodium Chloride (Saline Mist Nasal) 1 pepe PRN Q1HR PRN NS NASAL CONGESTION; Start 12/23/18 at 15:15 Saliva Substitute (Biotene Moisturizing Mouth) 2 spray PRN Q15MIN PRN PO DRY MOUTH; Start 12/23/18 at 15:15 Potassium Chloride/Dextrose/ Sod Cl 1,000 ml @ 80 mls/hr 1X ONCE IV Last administered on 12/23/18at 16:33; Start 12/23/18 at 15:15; Stop 12/24/18 at 03:44; Status DC Enoxaparin Sodium (Lovenox 30mg Syringe) 30 mg Q24H SQ Last administered on 12/24/18at 16:09; Start 12/23/18 at 16:00 Oxycodone/ Acetaminophen (Percocet 5/325) 1 tab PRN Q6HRS PRN PO PAIN; Start 12/23/18 at 15:15 Methylprednisolone Acetate (DEPO-Medrol 40MG VIAL) 40 mg 1X ONCE IM Last administered on 12/23/18at 17:30; Start 12/23/18 at 17:30; Stop 12/23/18 at 17:31; Status DC Methylprednisolone Acetate (DEPO-Medrol 40MG VIAL) 40 mg 1X ONCE INJ Last administered on 12/23/18 17:30; Start 12/23/18 at 17:30; Stop 12/23/18 at 17:31; Status DC Bupivacaine HCl (Sensorcaine-Mpf 0.25%) 10 ml 1X ONCE IJ Last administered on 12/23/18at 17:30; Start 12/23/18 at 17:30; Stop 12/23/18 at 17:31; Status DC Diclofenac Sodium (Voltaren) 1 pepe BID TP Last administered on 12/25/18at 08:09; Start 12/23/18 at 21:00 Prednisone (Prednisone) 10 mg DAILY PO Last administered on 12/25/18at 08:08; Start 12/24/18 at 09:00 Ferrous Sulfate (Feosol) 325 mg BIDWMEALS PO ; Start 12/24/18 at 10:00; Status Cancel Ferrous Sulfate (Iron Oral Solution) 300 mg BIDWMEALS PO ; Start 12/24/18 at 17:00 Active Scripts Active Tamiflu (Oseltamivir Phosphate) 30 Mg Capsule 1 Cap PO BID 5 Days Protonix (Pantoprazole Sodium) 40 Mg Tablet.dr 1 Tab PO DAILY Norvasc (Amlodipine Besylate) 5 Mg Tablet 5 Mg PO DAILY Reported Losartan Potassium 100 Mg Tablet 100 Mg PO DAILY Prednisone 2.5 Mg Tablet 2 Tab PO DAILY Tylenol (Acetaminophen) 325 Mg Tablet 1,000 Mg PO DAILY Vitals/I & O Vital Sign - Last 24 Hours 12/24/18 12/24/18 12/24/18 12/24/18 11:00 15:00 19:00 19:34 Temp 97.7 98.1 97.8 97.7 98.1 97.8 Pulse 81 82 83 Resp 18 17 18 B/P (MAP) 143/78 (99) 147/75 (99) 135/70 (91) Pulse Ox 100 100 99 O2 Delivery Room Air Room Air Room Air Room Air 12/24/18 12/25/18 12/25/18 12/25/18 23:00 03:00 07:00 08:00 Temp 98.1 98.0 98.3 98.1 98.0 98.3 Pulse 80 76 86 Resp 18 18 18 B/P (MAP) 131/71 (91) 128/63 (84) 140/70 (93) Pulse Ox 100 98 100 O2 Delivery Room Air Room Air Room Air Room Air 12/25/18 12/25/18 08:08 08:08 Pulse 86 86 B/P (MAP) 140/70 140/70 Intake and Output 12/24/18 12/24/18 12/25/18 14:59 22:59 06:59 Intake Total 300 ml 100 ml 180 ml Balance 300 ml 100 ml 180 ml Nutrition Consultation Dietary Evaluation: Recommendations by RD: Increase Calorie Intake, Protein supplementation Comments: continue diet, offer ensure/glucerna supplements prn Expected Outcomes/Goals: to meet > 75% est nutr needs Interpretation of weight loss: >10% in 6 months Malnutrition Findings: Body Fat Depletion (Non Severe: Mild Depletion Weight Status: Underweight CASTLE,NIAL K III DO Dec 25, 2018 11:00
[2018-12-25 15:00] VITALS: BP 120/67
[2018-12-25] MEDS: ENOXAPARIN 30 MG/0.3 ML SYRINGE. SQ SCH (16:36)
[2018-12-25 19:00] VITALS: BP 138/77
[2018-12-25 23:00] VITALS: BP 145/82
[2018-12-26 03:00] VITALS: BP 138/75
[2018-12-26 07:00] VITALS: BP 150/77
[2018-12-26] MEDS: FERROUS SULFATE ORAL 300 MG/5 ML SOLUTION. PO SCH ×2 (08:00→16:50)
[2018-12-26] MEDS: POLYETHYLENE GLYCOL 3350 17 GM PACKET. PO SCH (09:00)
[2018-12-26] MEDS: DOCUSATE SODIUM 100 MG CAPSULE. PO SCH ×2 (09:00→09:30)
[2018-12-26] MEDS: PANTOPRAZOLE 40 MG TABLET.DR. PO SCH (09:31)
[2018-12-26] MEDS: predniSONE 10 MG TABLET PO SCH (09:31)
[2018-12-26] MEDS: amLODIPine BESYLATE 5 MG TABLET PO SCH (09:31)
[2018-12-26] MEDS: LOSARTAN POTASSIUM 50 MG TABLET. PO SCH (09:31)
[2018-12-26 09:33] LABS: CALCIUM 8.8 mg/dL (8.5-10.1); CREATININE 1.1 mg/dL (0.6-1.0); GFR 57.3
[2018-12-26 09:34] LABS: BASO % 0 % (0-3); EOS % 0 % (0-3); HEMATOCRIT 29.4 % (36.0-47.0); HEMOGLOBIN 9.3 g/dL (12.0-15.5); LYMPH % 19 % (24-48); MEAN CORPUSCULAR HEMOGLOBIN 26 pg (25-35); MEAN CORPUSCULAR HGB CONC 32 g/dL (31-37); MEAN CORPUSCULAR VOLUME 81 fL (79-100); MONO # 0.9 x10^3/uL (0.0-1.1); MONO % 9 % (0-9); NEUT # 7.9 x10^3uL (1.8-7.7); NEUT % 73 % (31-73); PLATELET COUNT 354 x10^3/uL (140-400); RED BLOOD COUNT 3.64 x10^6/uL (3.50-5.40); RED CELL DISTRIBUTION WIDTH 16.7 % (11.5-14.5); WHITE BLOOD COUNT 10.9 x10^3/uL (4.0-11.0)
[2018-12-26] MEDS: DICLOFENAC SODIUM 1% TOPICAL GEL 100GM TUBE. TP SCH ×2 (09:37→20:24)
--- NOTE | 2018-12-26 09:43 | NUR ---
Colace: pt unable to swallow pill, no administered.
[2018-12-26 11:00] VITALS: BP 152/76
--- NOTE | 2018-12-26 13:51 | PDOC ---
PROGRESS NOTES Chief Complaint Chief Complaint Joint pain and weakness diffuse joint pain exacerbation of rheumatoid arthritis dry mouth, sjogrens syndrome, c weakenss and debility weight loss and severe malnutrition and hypoalbumin, History of Present Illness History of Present Illness The patient was seen resting in bed today. knees feel much better hands still an issue, but improving needs SNU, plan tomorrow Vitals Vitals Vital Signs Date Time Temp Pulse Resp B/P (MAP) Pulse Ox O2 Delivery O2 Flow Rate FiO2 12/26/18 11:00 97.6 71 18 152/76 (101) 98 Room Air 97.6 Physical Exam General: Alert, Oriented X3, Cooperative, No acute distress Heart: Regular rate, Normal S1, Normal S2, No murmurs Lungs: Clear (No wheezes, rales, or rhonchi), Crackles Abdomen: Soft, No tenderness, No masses Extremities: No edema, Normal pulses, Other (boggy itp joints, lateral deviati on of digtis, muscle wasting of hands) Skin: No rashes, No breakdown, No significant lesion Labs LABS Laboratory Tests Test 12/26/18 08:50 White Blood Count 10.9 x10^3/uL (4.0-11.0) Red Blood Count 3.64 x10^6/uL (3.50-5.40) Hemoglobin 9.3 g/dL (12.0-15.5) Hematocrit 29.4 % (36.0-47.0) Mean Corpuscular Volume 81 fL (79-100) Mean Corpuscular Hemoglobin 26 pg (25-35) Mean Corpuscular Hemoglobin Concent 32 g/dL (31-37) Red Cell Distribution Width 16.7 % (11.5-14.5) Platelet Count 354 x10^3/uL (140-400) Neutrophils (%) (Auto) 73 % (31-73) Lymphocytes (%) (Auto) 19 % (24-48) Monocytes (%) (Auto) 9 % (0-9) Eosinophils (%) (Auto) 0 % (0-3) Basophils (%) (Auto) 0 % (0-3) Neutrophils # (Auto) 7.9 x10^3uL (1.8-7.7) Lymphocytes # (Auto) 2.0 x10^3/uL (1.0-4.8) Monocytes # (Auto) 0.9 x10^3/uL (0.0-1.1) Eosinophils # (Auto) 0.0 x10^3/uL (0.0-0.7) Basophils # (Auto) 0.0 x10^3/uL (0.0-0.2) Sodium Level 138 mmol/L (136-145) Potassium Level 4.0 mmol/L (3.5-5.1) Chloride Level 103 mmol/L (98-107) Carbon Dioxide Level 23 mmol/L (21-32) Anion Gap 12 (6-14) Blood Urea Nitrogen 27 mg/dL (7-20) Creatinine 1.1 mg/dL (0.6-1.0) Estimated GFR (Cockcroft-Gault) 57.3 Glucose Level 142 mg/dL (70-99) Calcium Level 8.8 mg/dL (8.5-10.1) Assessment and Plan Assessmemt and Plan Problems Medical Problems: (1) Anemia Status: Acute (2) Arthralgia Status: Acute (3) Generalized weakness Status: Acute Comment Review of Relevant I have reviewed the following items janine (where applicable) has been applied. Labs Laboratory Tests Test 12/25/18 03:40 12/26/18 08:50 White Blood Count 13.7 x10^3/uL (4.0-11.0) 10.9 x10^3/uL (4.0-11.0) Red Blood Count 3.34 x10^6/uL (3.50-5.40) 3.64 x10^6/uL (3.50-5.40) Hemoglobin 8.5 g/dL (12.0-15.5) 9.3 g/dL (12.0-15.5) Hematocrit 26.5 % (36.0-47.0) 29.4 % (36.0-47.0) Mean Corpuscular Volume 79 fL (79-100) 81 fL (79-100) Mean Corpuscular Hemoglobin 25 pg (25-35) 26 pg (25-35) Mean Corpuscular Hemoglobin Concent 32 g/dL (31-37) 32 g/dL (31-37) Red Cell Distribution Width 16.4 % (11.5-14.5) 16.7 % (11.5-14.5) Platelet Count 314 x10^3/uL (140-400) 354 x10^3/uL (140-400) Neutrophils (%) (Auto) 84 % (31-73) 73 % (31-73) Lymphocytes (%) (Auto) 11 % (24-48) 19 % (24-48) Monocytes (%) (Auto) 5 % (0-9) 9 % (0-9) Eosinophils (%) (Auto) 0 % (0-3) 0 % (0-3) Basophils (%) (Auto) 0 % (0-3) 0 % (0-3) Neutrophils # (Auto) 11.4 x10^3uL (1.8-7.7) 7.9 x10^3uL (1.8-7.7) Lymphocytes # (Auto) 1.5 x10^3/uL (1.0-4.8) 2.0 x10^3/uL (1.0-4.8) Monocytes # (Auto) 0.7 x10^3/uL (0.0-1.1) 0.9 x10^3/uL (0.0-1.1) Eosinophils # (Auto) 0.0 x10^3/uL (0.0-0.7) 0.0 x10^3/uL (0.0-0.7) Basophils # (Auto) 0.0 x10^3/uL (0.0-0.2) 0.0 x10^3/uL (0.0-0.2) Sodium Level 134 mmol/L (136-145) 138 mmol/L (136-145) Potassium Level 4.5 mmol/L (3.5-5.1) 4.0 mmol/L (3.5-5.1) Chloride Level 101 mmol/L (98-107) 103 mmol/L (98-107) Carbon Dioxide Level 24 mmol/L (21-32) 23 mmol/L (21-32) Anion Gap 9 (6-14) 12 (6-14) Blood Urea Nitrogen 23 mg/dL (7-20) 27 mg/dL (7-20) Creatinine 1.2 mg/dL (0.6-1.0) 1.1 mg/dL (0.6-1.0) Estimated GFR (Cockcroft-Gault) 51.8 57.3 Glucose Level 138 mg/dL (70-99) 142 mg/dL (70-99) Calcium Level 8.7 mg/dL (8.5-10.1) 8.8 mg/dL (8.5-10.1) Laboratory Tests Test 12/26/18 08:50 White Blood Count 10.9 x10^3/uL (4.0-11.0) Red Blood Count 3.64 x10^6/uL (3.50-5.40) Hemoglobin 9.3 g/dL (12.0-15.5) Hematocrit 29.4 % (36.0-47.0) Mean Corpuscular Volume 81 fL (79-100) Mean Corpuscular Hemoglobin 26 pg (25-35) Mean Corpuscular Hemoglobin Concent 32 g/dL (31-37) Red Cell Distribution Width 16.7 % (11.5-14.5) Platelet Count 354 x10^3/uL (140-400) Neutrophils (%) (Auto) 73 % (31-73) Lymphocytes (%) (Auto) 19 % (24-48) Monocytes (%) (Auto) 9 % (0-9) Eosinophils (%) (Auto) 0 % (0-3) Basophils (%) (Auto) 0 % (0-3) Neutrophils # (Auto) 7.9 x10^3uL (1.8-7.7) Lymphocytes # (Auto) 2.0 x10^3/uL (1.0-4.8) Monocytes # (Auto) 0.9 x10^3/uL (0.0-1.1) Eosinophils # (Auto) 0.0 x10^3/uL (0.0-0.7) Basophils # (Auto) 0.0 x10^3/uL (0.0-0.2) Sodium Level 138 mmol/L (136-145) Potassium Level 4.0 mmol/L (3.5-5.1) Chloride Level 103 mmol/L (98-107) Carbon Dioxide Level 23 mmol/L (21-32) Anion Gap 12 (6-14) Blood Urea Nitrogen 27 mg/dL (7-20) Creatinine 1.1 mg/dL (0.6-1.0) Estimated GFR (Cockcroft-Gault) 57.3 Glucose Level 142 mg/dL (70-99) Calcium Level 8.8 mg/dL (8.5-10.1) Microbiology 12/23/18 Urine Culture - Final, Complete 12/23/18 Urine Culture Result 1 (OTILIA) - Final, Complete Medications Current Medications Fentanyl Citrate (Fentanyl 2ml Vial) 50 mcg 1X ONCE IV Last administered on 12/23/18at 11:20; Start 12/23/18 at 10:30; Stop 12/23/18 at 10:32; Status DC Amlodipine Besylate (Norvasc) 5 mg DAILY PO Last administered on 12/26/18at 09:31; Start 12/23/18 at 14:00 Pantoprazole Sodium (Protonix) 40 mg DAILY PO Last administered on 12/26/18at 09:31; Start 12/23/18 at 16:30 Losartan Potassium (Cozaar) 100 mg DAILY PO Last administered on 12/26/18at 09:31; Start 12/23/18 at 14:00 Docusate Sodium (Colace) 100 mg DAILY PO ; Start 12/23/18 at 14:00 Docusate Sodium (Colace) 100 mg PRN DAILY PRN PO CONSTIPATION (1st Choice); Start 12/23/18 at 14:00 Polyethylene Glycol (miraLAX PACKET) 17 gm DAILY PO Last administered on 12/25/18at 08:08; Start 12/23/18 at 14:00 Polyethylene Glycol (miraLAX PACKET) 17 gm PRN DAILY PRN PO CONSTIPATION (2nd Choice); Start 12/23/18 at 14:00 Prednisone (Prednisone) 5 mg DAILY PO Last administered on 12/23/18at 14:58; Start 12/23/18 at 14:00; Stop 12/23/18 at 15:09; Status DC Enoxaparin Sodium (Lovenox Per Pharmacy Prophylaxis Dosing) 1 each PRN DAILY PRN MC SEE COMMENTS; Start 12/23/18 at 15:15 Sodium Chloride (Saline Mist Nasal) 1 pepe PRN Q1HR PRN NS NASAL CONGESTION; Start 12/23/18 at 15:15 Saliva Substitute (Biotene Moisturizing Mouth) 2 spray PRN Q15MIN PRN PO DRY MOUTH; Start 12/23/18 at 15:15 Potassium Chloride/Dextrose/ Sod Cl 1,000 ml @ 80 mls/hr 1X ONCE IV Last administered on 12/23/18at 16:33; Start 12/23/18 at 15:15; Stop 12/24/18 at 03:44; Status DC Enoxaparin Sodium (Lovenox 30mg Syringe) 30 mg Q24H SQ Last administered on 12/25/18at 16:36; Start 12/23/18 at 16:00 Oxycodone/ Acetaminophen (Percocet 5/325) 1 tab PRN Q6HRS PRN PO PAIN; Start 12/23/18 at 15:15 Methylprednisolone Acetate (DEPO-Medrol 40MG VIAL) 40 mg 1X ONCE IM Last administered on 12/23/18at 17:30; Start 12/23/18 at 17:30; Stop 12/23/18 at 17:31; Status DC Methylprednisolone Acetate (DEPO-Medrol 40MG VIAL) 40 mg 1X ONCE INJ Last administered on 12/23/18at 17:30; Start 12/23/18 at 17:30; Stop 12/23/18 at 17:31; Status DC Bupivacaine HCl (Sensorcaine-Mpf 0.25%) 10 ml 1X ONCE IJ Last administered on 12/23/18at 17:30; Start 12/23/18 at 17:30; Stop 12/23/18 at 17:31; Status DC Diclofenac Sodium (Voltaren) 1 pepe BID TP Last administered on 12/26/18at 09:37; Start 12/23/18 at 21:00 Prednisone (Prednisone) 10 mg DAILY PO Last administered on 12/26/18at 09:31; Start 12/24/18 at 09:00 Ferrous Sulfate (Feosol) 325 mg BIDWMEALS PO ; Start 12/24/18 at 10:00; Status Cancel Ferrous Sulfate (Iron Oral Solution) 300 mg BIDWMEALS PO ; Start 12/24/18 at 17:00 Temazepam (Restoril) 7.5 mg PRN QHS PRN PO INSOMNIA; Start 12/25/18 at 11:00 Active Scripts Active Tamiflu (Oseltamivir Phosphate) 30 Mg Capsule 1 Cap PO BID 5 Days Protonix (Pantoprazole Sodium) 40 Mg Tablet.dr 1 Tab PO DAILY Norvasc (Amlodipine Besylate) 5 Mg Tablet 5 Mg PO DAILY Reported Losartan Potassium 100 Mg Tablet 100 Mg PO DAILY Prednisone 2.5 Mg Tablet 2 Tab PO DAILY Tylenol (Acetaminophen) 325 Mg Tablet 1,000 Mg PO DAILY Vitals/I & O Vital Sign - Last 24 Hours 12/25/18 12/25/18 12/25/18 12/25/18 15:00 19:00 19:50 23:00 Temp 98.2 98.0 98.0 98.2 98.0 98.0 Pulse 78 77 78 Resp 18 18 18 B/P (MAP) 120/67 (84) 138/77 (97) 145/82 (103) Pulse Ox 100 97 100 O2 Delivery Room Air Room Air Room Air Room Air 12/26/18 12/26/18 12/26/18 12/26/18 03:00 07:00 09:31 09:31 Temp 98.0 97.8 98.0 97.8 Pulse 72 70 70 70 Resp 18 16 B/P (MAP) 138/75 (96) 150/77 (101) 150/77 150/77 Pulse Ox 97 98 O2 Delivery Room Air Room Air 12/26/18 11:00 Temp 97.6 97.6 Pulse 71 Resp 18 B/P (MAP) 152/76 (101) Pulse Ox 98 O2 Delivery Room Air Intake and Output 12/25/18 12/25/18 12/26/18 15:00 23:00 07:00 Intake Total 320 ml 220 ml 210 ml Balance 320 ml 220 ml 210 ml Nutrition Consultation Dietary Evaluation: Recommendations by RD: Increase Calorie Intake, Protein supplementation Comments: continue diet, offer ensure/glucerna supplements prn Expected Outcomes/Goals: to meet > 75% est nutr needs Interpretation of weight loss: >10% in 6 months Malnutrition Findings: Body Fat Depletion (Non Severe: Mild Depletion Weight Status: Underweight ALVARO FABIAN MD Dec 26, 2018 13:51
[2018-12-26 15:00] VITALS: BP 127/65
[2018-12-26] MEDS: ENOXAPARIN 30 MG/0.3 ML SYRINGE. SQ SCH (16:48)
[2018-12-26 19:00] VITALS: BP 128/69
[2018-12-26 23:00] VITALS: BP 130/72
[2018-12-27 03:00] VITALS: BP 161/80
[2018-12-27 05:09] LABS: BASO % 0 % (0-3); EOS % 0 % (0-3); HEMATOCRIT 26.8 % (36.0-47.0); HEMOGLOBIN 8.7 g/dL (12.0-15.5); LYMPH # 3.3 x10^3/uL (1.0-4.8); LYMPH % 35 % (24-48); MEAN CORPUSCULAR HEMOGLOBIN 26 pg (25-35); MEAN CORPUSCULAR HGB CONC 32 g/dL (31-37); MEAN CORPUSCULAR VOLUME 80 fL (79-100); MONO # 1.2 x10^3/uL (0.0-1.1); MONO % 12 % (0-9); NEUT # 4.8 x10^3uL (1.8-7.7); NEUT % 52 % (31-73); PLATELET COUNT 311 x10^3/uL (140-400); RED BLOOD COUNT 3.36 x10^6/uL (3.50-5.40); RED CELL DISTRIBUTION WIDTH 16.4 % (11.5-14.5); WHITE BLOOD COUNT 9.3 x10^3/uL (4.0-11.0)
[2018-12-27 05:28] LABS: CALCIUM 8.6 mg/dL (8.5-10.1); GFR 63.9; POTASSIUM 3.9 mmol/L (3.5-5.1)
[2018-12-27 07:00] VITALS: BP 129/79
[2018-12-27] MEDS: FERROUS SULFATE ORAL 300 MG/5 ML SOLUTION. PO SCH (08:33)
[2018-12-27] MEDS: DOCUSATE SODIUM 100 MG CAPSULE. PO SCH (08:34)
[2018-12-27] MEDS: POLYETHYLENE GLYCOL 3350 17 GM PACKET. PO SCH (08:36)
[2018-12-27] MEDS: LOSARTAN POTASSIUM 50 MG TABLET. PO SCH (08:36)
[2018-12-27] MEDS: PANTOPRAZOLE 40 MG TABLET.DR. PO SCH (08:37)
[2018-12-27] MEDS: predniSONE 10 MG TABLET PO SCH (08:37)
[2018-12-27] MEDS: DICLOFENAC SODIUM 1% TOPICAL GEL 100GM TUBE. TP SCH (08:38)
[2018-12-27] MEDS: amLODIPine BESYLATE 5 MG TABLET PO SCH (08:40)
--- NOTE | 2018-12-27 08:47 | NUR ---
MONIK following pt. SW had spoken with pt on late Thursday about SNU options and pt had chosen [facility]. MONIK phoned and faxed referral to [facility]. Pt acceptance and admission pending pending. MONIK left a voice mail to pt's daughter, Robe, phone: [phone] regarding plan. Will continue to follow.
--- NOTE | 2018-12-27 09:14 | PDOC ---
PROGRESS NOTES Subjective Subjective She feels better but admits continued stiffness of her hands and knees. Objective Objective Vital Signs Date Time Temp Pulse Resp B/P (MAP) Pulse Ox O2 Delivery O2 Flow Rate FiO2 12/27/18 08:40 58 129/79 12/27/18 07:00 97.8 20 100 Room Air 97.8 Intake and Output 12/27/18 06:59 Intake Total 1730 ml Output Total 1000 ml Balance 730 ml Intake Oral 1730 ml Output Urine Total 1000 ml # Voids 2 Physical Exam Physical Exam She is comfortable sitting in bedside chair and is alert and she is transferring better and she did walk for 80' with roller walker with physical therapy yesterday. Assessment Assessment Problems Medical Problems: (1) Anemia Status: Acute (2) Arthralgia Status: Acute (3) Generalized weakness Status: Acute Plan Plan of Care Agree with plans for SNF transfer when medically stable. Comment Review of Relevant I have reviewed the following items janine (where applicable) has been applied. Labs Laboratory Tests Test 12/26/18 08:50 12/27/18 04:40 White Blood Count 10.9 x10^3/uL (4.0-11.0) 9.3 x10^3/uL (4.0-11.0) Red Blood Count 3.64 x10^6/uL (3.50-5.40) 3.36 x10^6/uL (3.50-5.40) Hemoglobin 9.3 g/dL (12.0-15.5) 8.7 g/dL (12.0-15.5) Hematocrit 29.4 % (36.0-47.0) 26.8 % (36.0-47.0) Mean Corpuscular Volume 81 fL (79-100) 80 fL (79-100) Mean Corpuscular Hemoglobin 26 pg (25-35) 26 pg (25-35) Mean Corpuscular Hemoglobin Concent 32 g/dL (31-37) 32 g/dL (31-37) Red Cell Distribution Width 16.7 % (11.5-14.5) 16.4 % (11.5-14.5) Platelet Count 354 x10^3/uL (140-400) 311 x10^3/uL (140-400) Neutrophils (%) (Auto) 73 % (31-73) 52 % (31-73) Lymphocytes (%) (Auto) 19 % (24-48) 35 % (24-48) Monocytes (%) (Auto) 9 % (0-9) 12 % (0-9) Eosinophils (%) (Auto) 0 % (0-3) 0 % (0-3) Basophils (%) (Auto) 0 % (0-3) 0 % (0-3) Neutrophils # (Auto) 7.9 x10^3uL (1.8-7.7) 4.8 x10^3uL (1.8-7.7) Lymphocytes # (Auto) 2.0 x10^3/uL (1.0-4.8) 3.3 x10^3/uL (1.0-4.8) Monocytes # (Auto) 0.9 x10^3/uL (0.0-1.1) 1.2 x10^3/uL (0.0-1.1) Eosinophils # (Auto) 0.0 x10^3/uL (0.0-0.7) 0.0 x10^3/uL (0.0-0.7) Basophils # (Auto) 0.0 x10^3/uL (0.0-0.2) 0.0 x10^3/uL (0.0-0.2) Sodium Level 138 mmol/L (136-145) 137 mmol/L (136-145) Potassium Level 4.0 mmol/L (3.5-5.1) 3.9 mmol/L (3.5-5.1) Chloride Level 103 mmol/L (98-107) 104 mmol/L (98-107) Carbon Dioxide Level 23 mmol/L (21-32) 25 mmol/L (21-32) Anion Gap 12 (6-14) 8 (6-14) Blood Urea Nitrogen 27 mg/dL (7-20) 26 mg/dL (7-20) Creatinine 1.1 mg/dL (0.6-1.0) 1.0 mg/dL (0.6-1.0) Estimated GFR (Cockcroft-Gault) 57.3 63.9 Glucose Level 142 mg/dL (70-99) 78 mg/dL (70-99) Calcium Level 8.8 mg/dL (8.5-10.1) 8.6 mg/dL (8.5-10.1) Laboratory Tests Test 12/27/18 04:40 White Blood Count 9.3 x10^3/uL (4.0-11.0) Red Blood Count 3.36 x10^6/uL (3.50-5.40) Hemoglobin 8.7 g/dL (12.0-15.5) Hematocrit 26.8 % (36.0-47.0) Mean Corpuscular Volume 80 fL (79-100) Mean Corpuscular Hemoglobin 26 pg (25-35) Mean Corpuscular Hemoglobin Concent 32 g/dL (31-37) Red Cell Distribution Width 16.4 % (11.5-14.5) Platelet Count 311 x10^3/uL (140-400) Neutrophils (%) (Auto) 52 % (31-73) Lymphocytes (%) (Auto) 35 % (24-48) Monocytes (%) (Auto) 12 % (0-9) Eosinophils (%) (Auto) 0 % (0-3) Basophils (%) (Auto) 0 % (0-3) Neutrophils # (Auto) 4.8 x10^3uL (1.8-7.7) Lymphocytes # (Auto) 3.3 x10^3/uL (1.0-4.8) Monocytes # (Auto) 1.2 x10^3/uL (0.0-1.1) Eosinophils # (Auto) 0.0 x10^3/uL (0.0-0.7) Basophils # (Auto) 0.0 x10^3/uL (0.0-0.2) Sodium Level 137 mmol/L (136-145) Potassium Level 3.9 mmol/L (3.5-5.1) Chloride Level 104 mmol/L (98-107) Carbon Dioxide Level 25 mmol/L (21-32) Anion Gap 8 (6-14) Blood Urea Nitrogen 26 mg/dL (7-20) Creatinine 1.0 mg/dL (0.6-1.0) Estimated GFR (Cockcroft-Gault) 63.9 Glucose Level 78 mg/dL (70-99) Calcium Level 8.6 mg/dL (8.5-10.1) Microbiology 12/23/18 Urine Culture - Final, Complete 12/23/18 Urine Culture Result 1 (OTILIA) - Final, Complete Medications Current Medications Fentanyl Citrate (Fentanyl 2ml Vial) 50 mcg 1X ONCE IV Last administered on 12/23/18 11:20; Start 12/23/18 at 10:30; Stop 12/23/18 at 10:32; Status DC Amlodipine Besylate (Norvasc) 5 mg DAILY PO Last administered on 12/27/18 08:40; Start 12/23/18 at 14:00 Pantoprazole Sodium (Protonix) 40 mg DAILY PO Last administered on 12/27/18 08:37; Start 12/23/18 at 16:30 Losartan Potassium (Cozaar) 100 mg DAILY PO Last administered on 12/27/18 08:36; Start 12/23/18 at 14:00 Docusate Sodium (Colace) 100 mg DAILY PO Last administered on 12/27/18 08:34; Start 12/23/18 at 14:00 Docusate Sodium (Colace) 100 mg PRN DAILY PRN PO CONSTIPATION (1st Choice); Start 12/23/18 at 14:00 Polyethylene Glycol (miraLAX PACKET) 17 gm DAILY PO Last administered on 12/25/18at 08:08; Start 12/23/18 at 14:00 Polyethylene Glycol (miraLAX PACKET) 17 gm PRN DAILY PRN PO CONSTIPATION (2nd Choice); Start 12/23/18 at 14:00 Prednisone (Prednisone) 5 mg DAILY PO Last administered on 12/23/18at 14:58; Start 12/23/18 at 14:00; Stop 12/23/18 at 15:09; Status DC Enoxaparin Sodium (Lovenox Per Pharmacy Prophylaxis Dosing) 1 each PRN DAILY PRN MC SEE COMMENTS; Start 12/23/18 at 15:15 Sodium Chloride (Saline Mist Nasal) 1 pepe PRN Q1HR PRN NS NASAL CONGESTION; Start 12/23/18 at 15:15 Saliva Substitute (Biotene Moisturizing Mouth) 2 spray PRN Q15MIN PRN PO DRY MOUTH; Start 12/23/18 at 15:15 Potassium Chloride/Dextrose/ Sod Cl 1,000 ml @ 80 mls/hr 1X ONCE IV Last administered on 12/23/18at 16:33; Start 12/23/18 at 15:15; Stop 12/24/18 at 03:44; Status DC Enoxaparin Sodium (Lovenox 30mg Syringe) 30 mg Q24H SQ Last administered on 12/26/18at 16:48; Start 12/23/18 at 16:00 Oxycodone/ Acetaminophen (Percocet 5/325) 1 tab PRN Q6HRS PRN PO PAIN; Start 12/23/18 at 15:15 Methylprednisolone Acetate (DEPO-Medrol 40MG VIAL) 40 mg 1X ONCE IM Last administered on 12/23/18at 17:30; Start 12/23/18 at 17:30; Stop 12/23/18 at 17:31; Status DC Methylprednisolone Acetate (DEPO-Medrol 40MG VIAL) 40 mg 1X ONCE INJ Last administered on 12/23/18at 17:30; Start 12/23/18 at 17:30; Stop 12/23/18 at 17:31; Status DC Bupivacaine HCl (Sensorcaine-Mpf 0.25%) 10 ml 1X ONCE IJ Last administered on 12/23/18at 17:30; Start 12/23/18 at 17:30; Stop 12/23/18 at 17:31; Status DC Diclofenac Sodium (Voltaren) 1 pepe BID TP Last administered on 12/27/18 08:38; Start 12/23/18 at 21:00 Prednisone (Prednisone) 10 mg DAILY PO Last administered on 12/27/18at 08:37; Start 12/24/18 at 09:00 Ferrous Sulfate (Feosol) 325 mg BIDWMEALS PO ; Start 12/24/18 at 10:00; Status Cancel Ferrous Sulfate (Iron Oral Solution) 300 mg BIDWMEALS PO Last administered on 12/27/18at 08:33; Start 12/24/18 at 17:00 Temazepam (Restoril) 7.5 mg PRN QHS PRN PO INSOMNIA; Start 12/25/18 at 11:00 Active Scripts Active Tamiflu (Oseltamivir Phosphate) 30 Mg Capsule 1 Cap PO BID 5 Days Protonix (Pantoprazole Sodium) 40 Mg Tablet.dr 1 Tab PO DAILY Norvasc (Amlodipine Besylate) 5 Mg Tablet 5 Mg PO DAILY Reported Losartan Potassium 100 Mg Tablet 100 Mg PO DAILY Prednisone 2.5 Mg Tablet 2 Tab PO DAILY Tylenol (Acetaminophen) 325 Mg Tablet 1,000 Mg PO DAILY Vitals/I & O Vital Sign - Last 24 Hours 12/26/18 12/26/18 12/26/18 12/26/18 09:31 09:31 11:00 15:00 Temp 97.6 97.6 97.6 97.6 Pulse 70 70 71 69 Resp 18 18 B/P (MAP) 150/77 150/77 152/76 (101) 127/65 (85) Pulse Ox 98 98 O2 Delivery Room Air Room Air 12/26/18 12/26/18 12/26/18 12/27/18 19:00 19:50 23:00 03:00 Temp 97.6 98.6 98.2 97.6 98.6 98.2 Pulse 18 65 61 Resp 18 18 18 B/P (MAP) 128/69 (88) 130/72 (91) 161/80 (107) Pulse Ox 100 100 98 O2 Delivery Room Air Room Air Room Air Room Air 12/27/18 12/27/18 12/27/18 07:00 08:36 08:40 Temp 97.8 97.8 Pulse 58 58 58 Resp 20 B/P (MAP) 129/79 (96) 129/79 129/79 Pulse Ox 100 O2 Delivery Room Air Intake and Output 12/26/18 12/26/18 12/27/18 14:59 22:59 06:59 Intake Total 730 ml 600 ml 400 ml Output Total 600 ml 400 ml Balance 730 ml 0 ml 0 ml Nutrition Consultation Dietary Evaluation: Recommendations by RD: Increase Calorie Intake, Protein supplementation Comments: continue diet, offer ensure/glucerna supplements prn Expected Outcomes/Goals: to meet > 75% est nutr needs Interpretation of weight loss: >10% in 6 months Malnutrition Findings: Body Fat Depletion (Non Severe: Mild Depletion Weight Status: Underweight SHEN WADE MD Dec 27, 2018 09:14
[2018-12-27 10:52] VITALS: BP 147/67
--- NOTE | 2018-12-27 10:56 | PDOC ---
PROGRESS NOTES Chief Complaint Chief Complaint Joint pain and weakness diffuse joint pain exacerbation of rheumatoid arthritis dry mouth, sjogrens syndrome, c weakenss and debility weight loss and severe malnutrition and hypoalbumin, History of Present Illness History of Present Illness The patient was seen resting in bed today. eating lunch knees feel much better hands still an issue, but improving needs SNU, plan today Vitals Vitals Vital Signs Date Time Temp Pulse Resp B/P (MAP) Pulse Ox O2 Delivery O2 Flow Rate FiO2 12/27/18 10:52 97.7 66 20 147/67 (93) 98 Room Air 97.7 Physical Exam General: Alert, Oriented X3, Cooperative, No acute distress Heart: Regular rate, Normal S1, Normal S2, No murmurs Lungs: Clear (No wheezes, rales, or rhonchi), Crackles Abdomen: Normal bowel sounds, Soft, No tenderness, No masses Extremities: No edema, Normal pulses, Other (boggy itp joints, lateral deviation of digtis, muscle wasting of hands) Skin: No rashes, No breakdown, No significant lesion Labs LABS Laboratory Tests Test 12/27/18 04:40 White Blood Count 9.3 x10^3/uL (4.0-11.0) Red Blood Count 3.36 x10^6/uL (3.50-5.40) Hemoglobin 8.7 g/dL (12.0-15.5) Hematocrit 26.8 % (36.0-47.0) Mean Corpuscular Volume 80 fL (79-100) Mean Corpuscular Hemoglobin 26 pg (25-35) Mean Corpuscular Hemoglobin Concent 32 g/dL (31-37) Red Cell Distribution Width 16.4 % (11.5-14.5) Platelet Count 311 x10^3/uL (140-400) Neutrophils (%) (Auto) 52 % (31-73) Lymphocytes (%) (Auto) 35 % (24-48) Monocytes (%) (Auto) 12 % (0-9) Eosinophils (%) (Auto) 0 % (0-3) Basophils (%) (Auto) 0 % (0-3) Neutrophils # (Auto) 4.8 x10^3uL (1.8-7.7) Lymphocytes # (Auto) 3.3 x10^3/uL (1.0-4.8) Monocytes # (Auto) 1.2 x10^3/uL (0.0-1.1) Eosinophils # (Auto) 0.0 x10^3/uL (0.0-0.7) Basophils # (Auto) 0.0 x10^3/uL (0.0-0.2) Sodium Level 137 mmol/L (136-145) Potassium Level 3.9 mmol/L (3.5-5.1) Chloride Level 104 mmol/L (98-107) Carbon Dioxide Level 25 mmol/L (21-32) Anion Gap 8 (6-14) Blood Urea Nitrogen 26 mg/dL (7-20) Creatinine 1.0 mg/dL (0.6-1.0) Estimated GFR (Cockcroft-Gault) 63.9 Glucose Level 78 mg/dL (70-99) Calcium Level 8.6 mg/dL (8.5-10.1) Assessment and Plan Assessmemt and Plan Problems Medical Problems: (1) Anemia Status: Acute (2) Arthralgia Status: Acute (3) Generalized weakness Status: Acute Comment Review of Relevant I have reviewed the following items janine (where applicable) has been applied. Labs Laboratory Tests Test 12/26/18 08:50 12/27/18 04:40 White Blood Count 10.9 x10^3/uL (4.0-11.0) 9.3 x10^3/uL (4.0-11.0) Red Blood Count 3.64 x10^6/uL (3.50-5.40) 3.36 x10^6/uL (3.50-5.40) Hemoglobin 9.3 g/dL (12.0-15.5) 8.7 g/dL (12.0-15.5) Hematocrit 29.4 % (36.0-47.0) 26.8 % (36.0-47.0) Mean Corpuscular Volume 81 fL (79-100) 80 fL (79-100) Mean Corpuscular Hemoglobin 26 pg (25-35) 26 pg (25-35) Mean Corpuscular Hemoglobin Concent 32 g/dL (31-37) 32 g/dL (31-37) Red Cell Distribution Width 16.7 % (11.5-14.5) 16.4 % (11.5-14.5) Platelet Count 354 x10^3/uL (140-400) 311 x10^3/uL (140-400) Neutrophils (%) (Auto) 73 % (31-73) 52 % (31-73) Lymphocytes (%) (Auto) 19 % (24-48) 35 % (24-48) Monocytes (%) (Auto) 9 % (0-9) 12 % (0-9) Eosinophils (%) (Auto) 0 % (0-3) 0 % (0-3) Basophils (%) (Auto) 0 % (0-3) 0 % (0-3) Neutrophils # (Auto) 7.9 x10^3uL (1.8-7.7) 4.8 x10^3uL (1.8-7.7) Lymphocytes # (Auto) 2.0 x10^3/uL (1.0-4.8) 3.3 x10^3/uL (1.0-4.8) Monocytes # (Auto) 0.9 x10^3/uL (0.0-1.1) 1.2 x10^3/uL (0.0-1.1) Eosinophils # (Auto) 0.0 x10^3/uL (0.0-0.7) 0.0 x10^3/uL (0.0-0.7) Basophils # (Auto) 0.0 x10^3/uL (0.0-0.2) 0.0 x10^3/uL (0.0-0.2) Sodium Level 138 mmol/L (136-145) 137 mmol/L (136-145) Potassium Level 4.0 mmol/L (3.5-5.1) 3.9 mmol/L (3.5-5.1) Chloride Level 103 mmol/L (98-107) 104 mmol/L (98-107) Carbon Dioxide Level 23 mmol/L (21-32) 25 mmol/L (21-32) Anion Gap 12 (6-14) 8 (6-14) Blood Urea Nitrogen 27 mg/dL (7-20) 26 mg/dL (7-20) Creatinine 1.1 mg/dL (0.6-1.0) 1.0 mg/dL (0.6-1.0) Estimated GFR (Cockcroft-Gault) 57.3 63.9 Glucose Level 142 mg/dL (70-99) 78 mg/dL (70-99) Calcium Level 8.8 mg/dL (8.5-10.1) 8.6 mg/dL (8.5-10.1) Laboratory Tests Test 12/27/18 04:40 White Blood Count 9.3 x10^3/uL (4.0-11.0) Red Blood Count 3.36 x10^6/uL (3.50-5.40) Hemoglobin 8.7 g/dL (12.0-15.5) Hematocrit 26.8 % (36.0-47.0) Mean Corpuscular Volume 80 fL (79-100) Mean Corpuscular Hemoglobin 26 pg (25-35) Mean Corpuscular Hemoglobin Concent 32 g/dL (31-37) Red Cell Distribution Width 16.4 % (11.5-14.5) Platelet Count 311 x10^3/uL (140-400) Neutrophils (%) (Auto) 52 % (31-73) Lymphocytes (%) (Auto) 35 % (24-48) Monocytes (%) (Auto) 12 % (0-9) Eosinophils (%) (Auto) 0 % (0-3) Basophils (%) (Auto) 0 % (0-3) Neutrophils # (Auto) 4.8 x10^3uL (1.8-7.7) Lymphocytes # (Auto) 3.3 x10^3/uL (1.0-4.8) Monocytes # (Auto) 1.2 x10^3/uL (0.0-1.1) Eosinophils # (Auto) 0.0 x10^3/uL (0.0-0.7) Basophils # (Auto) 0.0 x10^3/uL (0.0-0.2) Sodium Level 137 mmol/L (136-145) Potassium Level 3.9 mmol/L (3.5-5.1) Chloride Level 104 mmol/L (98-107) Carbon Dioxide Level 25 mmol/L (21-32) Anion Gap 8 (6-14) Blood Urea Nitrogen 26 mg/dL (7-20) Creatinine 1.0 mg/dL (0.6-1.0) Estimated GFR (Cockcroft-Gault) 63.9 Glucose Level 78 mg/dL (70-99) Calcium Level 8.6 mg/dL (8.5-10.1) Microbiology 12/23/18 Urine Culture - Final, Complete 12/23/18 Urine Culture Result 1 (OTILIA) - Final, Complete Medications Current Medications Fentanyl Citrate (Fentanyl 2ml Vial) 50 mcg 1X ONCE IV Last administered on 12/23/18at 11:20; Start 12/23/18 at 10:30; Stop 12/23/18 at 10:32; Status DC Amlodipine Besylate (Norvasc) 5 mg DAILY PO Last administered on 12/27/18 08:40; Start 12/23/18 at 14:00 Pantoprazole Sodium (Protonix) 40 mg DAILY PO Last administered on 12/27/18at 08:37; Start 12/23/18 at 16:30 Losartan Potassium (Cozaar) 100 mg DAILY PO Last administered on 12/27/18at 08:36; Start 12/23/18 at 14:00 Docusate Sodium (Colace) 100 mg DAILY PO Last administered on 12/27/18at 08:34; Start 12/23/18 at 14:00 Docusate Sodium (Colace) 100 mg PRN DAILY PRN PO CONSTIPATION (1st Choice); Start 12/23/18 at 14:00 Polyethylene Glycol (miraLAX PACKET) 17 gm DAILY PO Last administered on 12/25/18at 08:08; Start 12/23/18 at 14:00 Polyethylene Glycol (miraLAX PACKET) 17 gm PRN DAILY PRN PO CONSTIPATION (2nd Choice); Start 12/23/18 at 14:00 Prednisone (Prednisone) 5 mg DAILY PO Last administered on 12/23/18at 14:58; Start 12/23/18 at 14:00; Stop 12/23/18 at 15:09; Status DC Enoxaparin Sodium (Lovenox Per Pharmacy Prophylaxis Dosing) 1 each PRN DAILY PRN MC SEE COMMENTS; Start 12/23/18 at 15:15 Sodium Chloride (Saline Mist Nasal) 1 pepe PRN Q1HR PRN NS NASAL CONGESTION; Start 12/23/18 at 15:15 Saliva Substitute (Biotene Moisturizing Mouth) 2 spray PRN Q15MIN PRN PO DRY MOUTH; Start 12/23/18 at 15:15 Potassium Chloride/Dextrose/ Sod Cl 1,000 ml @ 80 mls/hr 1X ONCE IV Last admi nistered on 12/23/18 16:33; Start 12/23/18 at 15:15; Stop 12/24/18 at 03:44; Status DC Enoxaparin Sodium (Lovenox 30mg Syringe) 30 mg Q24H SQ Last administered on 12/26/18at 16:48; Start 12/23/18 at 16:00 Oxycodone/ Acetaminophen (Percocet 5/325) 1 tab PRN Q6HRS PRN PO PAIN; Start 12/23/18 at 15:15 Methylprednisolone Acetate (DEPO-Medrol 40MG VIAL) 40 mg 1X ONCE IM Last administered on 12/23/18 17:30; Start 12/23/18 at 17:30; Stop 12/23/18 at 17:31; Status DC Methylprednisolone Acetate (DEPO-Medrol 40MG VIAL) 40 mg 1X ONCE INJ Last administered on 12/23/18at 17:30; Start 12/23/18 at 17:30; Stop 12/23/18 at 17:31; Status DC Bupivacaine HCl (Sensorcaine-Mpf 0.25%) 10 ml 1X ONCE IJ Last administered on 12/23/18at 17:30; Start 12/23/18 at 17:30; Stop 12/23/18 at 17:31; Status DC Diclofenac Sodium (Voltaren) 1 pepe BID TP Last administered on 12/27/18 08:38; Start 12/23/18 at 21:00 Prednisone (Prednisone) 10 mg DAILY PO Last administered on 12/27/18at 08:37; Start 12/24/18 at 09:00 Ferrous Sulfate (Feosol) 325 mg BIDWMEALS PO ; Start 12/24/18 at 10:00; Status Cancel Ferrous Sulfate (Iron Oral Solution) 300 mg BIDWMEALS PO Last administered on 12/27/18at 08:33; Start 12/24/18 at 17:00 Temazepam (Restoril) 7.5 mg PRN QHS PRN PO INSOMNIA; Start 12/25/18 at 11:00 Active Scripts Active Tamiflu (Oseltamivir Phosphate) 30 Mg Capsule 1 Cap PO BID 5 Days Protonix (Pantoprazole Sodium) 40 Mg Tablet.dr 1 Tab PO DAILY Norvasc (Amlodipine Besylate) 5 Mg Tablet 5 Mg PO DAILY Reported Losartan Potassium 100 Mg Tablet 100 Mg PO DAILY Prednisone 2.5 Mg Tablet 2 Tab PO DAILY Tylenol (Acetaminophen) 325 Mg Tablet 1,000 Mg PO DAILY Vitals/I & O Vital Sign - Last 24 Hours 12/26/18 12/26/18 12/26/18 12/26/18 11:00 15:00 19:00 19:50 Temp 97.6 97.6 97.6 97.6 97.6 97.6 Pulse 71 69 18 Resp 18 18 18 B/P (MAP) 152/76 (101) 127/65 (85) 128/69 (88) Pulse Ox 98 98 100 O2 Delivery Room Air Room Air Room Air Room Air 12/26/18 12/27/18 12/27/18 12/27/18 23:00 03:00 07:00 08:00 Temp 98.6 98.2 97.8 98.6 98.2 97.8 Pulse 65 61 58 Resp 18 18 20 B/P (MAP) 130/72 (91) 161/80 (107) 129/79 (96) Pulse Ox 100 98 100 O2 Delivery Room Air Room Air Room Air Room Air 12/27/18 12/27/18 12/27/18 08:36 08:40 10:52 Temp 97.7 97.7 Pulse 58 58 66 Resp 20 B/P (MAP) 129/79 129/79 147/67 (93) Pulse Ox 98 O2 Delivery Room Air Intake and Output 12/26/18 12/26/18 12/27/18 14:59 22:59 06:59 Intake Total 730 ml 600 ml 400 ml Output Total 600 ml 400 ml Balance 730 ml 0 ml 0 ml Nutrition Consultation Dietary Evaluation: Recommendations by RD: Increase Calorie Intake, Protein supplementation Comments: continue diet, offer ensure/glucerna supplements prn Expected Outcomes/Goals: to meet > 75% est nutr needs Interpretation of weight loss: >10% in 6 months Malnutrition Findings: Body Fat Depletion (Non Severe: Mild Depletion Weight Status: Underweight MARYANA HANKS MD Dec 27, 2018 10:56
--- NOTE | 2018-12-27 11:03 | NUR ---
SW following pt. Pt has been accepted at [facility]. Spoke with Pt's daughter, Robe, phone: [phone] and she is agreeable with plan. Physician notified for dc order. ARNOL VANESSA.
--- NOTE | 2018-12-27 12:53 | PDOC3 ---
Discharge Summary Date of Admission: Dec 23, 2018 Date of Discharge: Dec 27, 2018 Follow-Up: 1-2 days Admitting Diagnosis comment: discharge dx Chief Complaint Joint pain and weakness diffuse joint pain exacerbation of rheumatoid arthritis dry mouth, sjogrens syndrome, c weaknss and debility SEVERE Inflammatory arthritis. Left hand: No acute fracture or lytic process is seen. Generalized osteopenia is seen. There is anterior subluxation of the second proximal phalanx with respect to the second metacarpal bone. This is seen to a lesser extent involving the third metacarpal phalangeal joint and the first metacarpal phalangeal joint as well. This finding may be seen with ligament laxity and has been seen with lupus if there is a clinical history of such. Another possibility is old rheumatoid arthritis if there is history of such. There is erosion of the ulnar styloid process. There are erosions of the scaphoid trapezoid joint and scaphoid trapezium joint. There is widening of the scaphoid lunate joint space which may be seen with a scaphoid lunate ligament tear. 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 There is mild primary degenerative osteoarthritis of the interphalangeal joints. Right hand: There is anterior subluxation of the first through fifth proximal phalanges with respect to the first through fifth metacarpal bones. There are erosions of the scaphoid trapezium joint and the scaphoid trapezoid joint. The ulnar styloid process is chronically eroded. There is widening of the scaphoid lunate joint space which may be seen with a scaphoid lunate ligament tear. The lunate bone and carpus appears to be anteriorly subluxed with respect to the radius in the lateral view. This may be secondary to old trauma or severe ligament laxity. 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 Mild/moderate primary degenerative osteoarthritis and spurring of the interphalangeal joints is seen. No acute fracture or lytic process is evident. Generalized osteopenia is seen. IMPRESSION: The findings may reflect rheumatoid arthritis. Subluxation of metacarpal phalangeal joints has been reported with lupus as well. Scaphoid lunate ligament tear of both wrists. Anterior subluxation of the lunate bone and carpus with respect to the radius of the right wrist. This may be secondary to an old injury or could be related to severe ligament laxity. DICTATED and SIGNED BY: ANKIT CACERES MD DATE: 12/09/18 1701 History of Present Illness History of Present Illness The patient was seen resting in bed today. eating lunch NAD knees feel much better hands still an issue, but improving needs SNU, plan today Vitals Vitals Vital Signs Date Time Temp Pulse Resp B/P (MAP) Pulse Ox O2 Delivery O2 Flow Rate FiO2 12/27/18 10:52 97.7 66 20 147/67 (93) 98 Room Air 97.7 Physical Exam General: Alert, Oriented X3, Cooperative, No acute distress Heart: Regular rate, Normal S1, Normal S2, No murmurs Lungs: Clear (No wheezes, rales, or rhonchi), Crackles Abdomen: Normal bowel sounds, Soft, No tenderness, No masses Extremities: No edema, Normal pulses, Other (boggy itp joints, lateral deviation of digtis, muscle wasting of hands) Skin: No rashes, No breakdown, No significant lesion FINAL DIAGNOSIS Problems Medical Problems: (1) Anemia Status: Acute (2) Arthralgia Status: Acute (3) Generalized weakness Status: Acute Brief Hospital Course Ms. Amanda is a 83 old [sex] who presented with [ MALNUTRITION, SEVERE JOINT PAIN] CONDITION AT DISCHARGE: Improved Discharge Medications Current Medications Fentanyl Citrate (Fentanyl 2ml Vial) 50 mcg 1X ONCE IV Last administered on 12/23/18 11:20; Start 12/23/18 at 10:30; Stop 12/23/18 at 10:32; Status DC Amlodipine Besylate (Norvasc) 5 mg DAILY PO Last administered on 12/27/18at 08:40; Start 12/23/18 at 14:00 Pantoprazole Sodium (Protonix) 40 mg DAILY PO Last administered on 12/27/18at 08:37; Start 12/23/18 at 16:30 Losartan Potassium (Cozaar) 100 mg DAILY PO Last administered on 12/27/18 08:36; Start 12/23/18 at 14:00 Docusate Sodium (Colace) 100 mg DAILY PO Last administered on 12/27/18at 08:34; Start 12/23/18 at 14:00 Docusate Sodium (Colace) 100 mg PRN DAILY PRN PO CONSTIPATION (1st Choice); Start 12/23/18 at 14:00 Polyethylene Glycol (miraLAX PACKET) 17 gm DAILY PO Last administered on 12/25/18at 08:08; Start 12/23/18 at 14:00 Polyethylene Glycol (miraLAX PACKET) 17 gm PRN DAILY PRN PO CONSTIPATION (2nd Choice); Start 12/23/18 at 14:00 Prednisone (Prednisone) 5 mg DAILY PO Last administered on 12/23/18at 14:58; Start 12/23/18 at 14:00; Stop 12/23/18 at 15:09; Status DC Enoxaparin Sodium (Lovenox Per Pharmacy Prophylaxis Dosing) 1 each PRN DAILY PRN MC SEE COMMENTS; Start 12/23/18 at 15:15 Sodium Chloride (Saline Mist Nasal) 1 pepe PRN Q1HR PRN NS NASAL CONGESTION; Start 12/23/18 at 15:15 Saliva Substitute (Biotene Moisturizing Mouth) 2 spray PRN Q15MIN PRN PO DRY MOUTH; Start 12/23/18 at 15:15 Potassium Chloride/Dextrose/ Sod Cl 1,000 ml @ 80 mls/hr 1X ONCE IV Last administered on 12/23/18at 16:33; Start 12/23/18 at 15:15; Stop 12/24/18 at 03:44; Status DC Enoxaparin Sodium (Lovenox 30mg Syringe) 30 mg Q24H SQ Last administered on 12/26/18at 16:48; Start 12/23/18 at 16:00 Oxycodone/ Acetaminophen (Percocet 5/325) 1 tab PRN Q6HRS PRN PO PAIN; Start 12/23/18 at 15:15 Methylprednisolone Acetate (DEPO-Medrol 40MG VIAL) 40 mg 1X ONCE IM Last administered on 12/23/18at 17:30; Start 12/23/18 at 17:30; Stop 12/23/18 at 17:31; Status DC Methylprednisolone Acetate (DEPO-Medrol 40MG VIAL) 40 mg 1X ONCE INJ Last administered on 12/23/18at 17:30; Start 12/23/18 at 17:30; Stop 12/23/18 at 17:31; Status DC Bupivacaine HCl (Sensorcaine-Mpf 0.25%) 10 ml 1X ONCE IJ Last administered on 12/23/18at 17:30; Start 12/23/18 at 17:30; Stop 12/23/18 at 17:31; Status DC Diclofenac Sodium (Voltaren) 1 pepe BID TP Last administered on 12/27/18at 08:38; Start 12/23/18 at 21:00 Prednisone (Prednisone) 10 mg DAILY PO Last administered on 12/27/18at 08:37; Start 12/24/18 at 09:00 Ferrous Sulfate (Feosol) 325 mg BIDWMEALS PO ; Start 12/24/18 at 10:00; Status Cancel Ferrous Sulfate (Iron Oral Solution) 300 mg BIDWMEALS PO Last administered on 12/27/18at 08:33; Start 12/24/18 at 17:00 Temazepam (Restoril) 7.5 mg PRN QHS PRN PO INSOMNIA; Start 12/25/18 at 11:00 Active Scripts Active Tamiflu (Oseltamivir Phosphate) 30 Mg Capsule 1 Cap PO BID 5 Days Protonix (Pantoprazole Sodium) 40 Mg Tablet.dr 1 Tab PO DAILY Norvasc (Amlodipine Besylate) 5 Mg Tablet 5 Mg PO DAILY Reported Losartan Potassium 100 Mg Tablet 100 Mg PO DAILY Prednisone 2.5 Mg Tablet 2 Tab PO DAILY Tylenol (Acetaminophen) 325 Mg Tablet 1,000 Mg PO DAILY Vital Signs Vital Signs Date Time Temp Pulse Resp B/P (MAP) Pulse Ox O2 Delivery O2 Flow Rate FiO2 12/27/18 10:52 97.7 66 20 147/67 (93) 98 Room Air 97.7 Labs Laboratory Tests Test 12/26/18 08:50 12/27/18 04:40 White Blood Count 10.9 x10^3/uL (4.0-11.0) 9.3 x10^3/uL (4.0-11.0) Red Blood Count 3.64 x10^6/uL (3.50-5.40) 3.36 x10^6/uL (3.50-5.40) Hemoglobin 9.3 g/dL (12.0-15.5) 8.7 g/dL (12.0-15.5) Hematocrit 29.4 % (36.0-47.0) 26.8 % (36.0-47.0) Mean Corpuscular Volume 81 fL (79-100) 80 fL (79-100) Mean Corpuscular Hemoglobin 26 pg (25-35) 26 pg (25-35) Mean Corpuscular Hemoglobin Concent 32 g/dL (31-37) 32 g/dL (31-37) Red Cell Distribution Width 16.7 % (11.5-14.5) 16.4 % (11.5-14.5) Platelet Count 354 x10^3/uL (140-400) 311 x10^3/uL (140-400) Neutrophils (%) (Auto) 73 % (31-73) 52 % (31-73) Lymphocytes (%) (Auto) 19 % (24-48) 35 % (24-48) Monocytes (%) (Auto) 9 % (0-9) 12 % (0-9) Eosinophils (%) (Auto) 0 % (0-3) 0 % (0-3) Basophils (%) (Auto) 0 % (0-3) 0 % (0-3) Neutrophils # (Auto) 7.9 x10^3uL (1.8-7.7) 4.8 x10^3uL (1.8-7.7) Lymphocytes # (Auto) 2.0 x10^3/uL (1.0-4.8) 3.3 x10^3/uL (1.0-4.8) Monocytes # (Auto) 0.9 x10^3/uL (0.0-1.1) 1.2 x10^3/uL (0.0-1.1) Eosinophils # (Auto) 0.0 x10^3/uL (0.0-0.7) 0.0 x10^3/uL (0.0-0.7) Basophils # (Auto) 0.0 x10^3/uL (0.0-0.2) 0.0 x10^3/uL (0.0-0.2) Sodium Level 138 mmol/L (136-145) 137 mmol/L (136-145) Potassium Level 4.0 mmol/L (3.5-5.1) 3.9 mmol/L (3.5-5.1) Chloride Level 103 mmol/L (98-107) 104 mmol/L (98-107) Carbon Dioxide Level 23 mmol/L (21-32) 25 mmol/L (21-32) Anion Gap 12 (6-14) 8 (6-14) Blood Urea Nitrogen 27 mg/dL (7-20) 26 mg/dL (7-20) Creatinine 1.1 mg/dL (0.6-1.0) 1.0 mg/dL (0.6-1.0) Estimated GFR (Cockcroft-Gault) 57.3 63.9 Glucose Level 142 mg/dL (70-99) 78 mg/dL (70-99) Calcium Level 8.8 mg/dL (8.5-10.1) 8.6 mg/dL (8.5-10.1) Laboratory Tests Test 12/27/18 04:40 White Blood Count 9.3 x10^3/uL (4.0-11.0) Red Blood Count 3.36 x10^6/uL (3.50-5.40) Hemoglobin 8.7 g/dL (12.0-15.5) Hematocrit 26.8 % (36.0-47.0) Mean Corpuscular Volume 80 fL (79-100) Mean Corpuscular Hemoglobin 26 pg (25-35) Mean Corpuscular Hemoglobin Concent 32 g/dL (31-37) Red Cell Distribution Width 16.4 % (11.5-14.5) Platelet Count 311 x10^3/uL (140-400) Neutrophils (%) (Auto) 52 % (31-73) Lymphocytes (%) (Auto) 35 % (24-48) Monocytes (%) (Auto) 12 % (0-9) Eosinophils (%) (Auto) 0 % (0-3) Basophils (%) (Auto) 0 % (0-3) Neutrophils # (Auto) 4.8 x10^3uL (1.8-7.7) Lymphocytes # (Auto) 3.3 x10^3/uL (1.0-4.8) Monocytes # (Auto) 1.2 x10^3/uL (0.0-1.1) Eosinophils # (Auto) 0.0 x10^3/uL (0.0-0.7) Basophils # (Auto) 0.0 x10^3/uL (0.0-0.2) Sodium Level 137 mmol/L (136-145) Potassium Level 3.9 mmol/L (3.5-5.1) Chloride Level 104 mmol/L (98-107) Carbon Dioxide Level 25 mmol/L (21-32) Anion Gap 8 (6-14) Blood Urea Nitrogen 26 mg/dL (7-20) Creatinine 1.0 mg/dL (0.6-1.0) Estimated GFR (Cockcroft-Gault) 63.9 Glucose Level 78 mg/dL (70-99) Calcium Level 8.6 mg/dL (8.5-10.1) Allergies Allergies Coded Allergies Type Severity Reaction Last Updated Verified No Known Drug Allergies 10/09/16 No Disposition/Orders: Other (D/C SNF) Patient Instructions D/C PLANNING 36 MIN MARYANA HANKS MD Dec 27, 2018 12:53
[2018-12-27] MEDS ORDERED: TEMA7.5C2 PO (13:00)
[2018-12-27] MEDS ORDERED: DICL100G18 TP (13:00)
[2018-12-27] MEDS ORDERED: SALI44.3 PO (13:00)
[2018-12-27] MEDS ORDERED: POLY17PO28 PO (13:00)
[2018-12-27] MEDS ORDERED: PRED-220 PO (13:00)
[2018-12-27] MEDS ORDERED: FERR300L PO (13:00)
[2018-12-27] MEDS ORDERED: OXYC1TAB15 PO (13:00)
[2018-12-27] MEDS ORDERED: SODI44SP NS (13:00)
[2018-12-27] MEDS ORDERED: DOCU-109 PO (13:00)
--- NOTE | 2018-12-27 13:05 | SNU/HH DC ---
DISCHARGE ORDERS DISCHARGE INFORMATION: FINAL DIAGNOSIS Problems Medical Problems: (1) Anemia Status: Acute (2) Arthralgia Status: Acute (3) Generalized weakness Status: Acute CONDITION ON DISCHARGE: Stable CODE STATUS: Code Status: Full FPC: SNF STAY <30 DAYS: Yes HOSPICE: HOSPICE: No HOSPICE EVAL & TREAT: No LTAC: ADMIT TO LTAC: No POST DISCHARGE ORDERS: ACTIVITY ORDERS: Activity as tolerated WEIGHT BEARING STATUS: As tolerated DIET AFTER DISCHARGE: Cardiac CHECKS AFTER DISCHARGE: CHECKS AFTER DISCHARGE: Check blood press - daily FOLLOW-UP: PHYSICIAN FOLLOW-UP: SHERI 7 DAYS TREATMENT/EQUIPMENT ORDERS: ADAPTIVE EQUIPMENT NEEDED: Cane Physical Therapy For: Evalulation/Treatment Occupational Therapy For: Evaluation/Treatment Speech Language Pathology For: Evaluation/Treatment DISCHARGE MEDICATIONS: Home Meds Active Scripts Temazepam (RESTORIL) 7.5 Mg Capsule, 7.5 MG PO PRN QHS PRN for INSOMNIA for 10 Days, #10 CAP Prov:MARYANA HANKS MD 12/27/18 Polyethylene Glycol 3350 (POLYETHYLENE GLYCOL 3350) 17 Gm Powd.pack, 17 GM PO PRN DAILY PRN for CONSTIPATION (2nd Choice) for 14 Days, #14 PKT Prov:MARYANA HANKS MD 12/27/18 Sodium Chloride (DEEP SEA) 44 Ml [place], 1 ROBERTH NS PRN Q1HR PRN for NASAL CONGESTION for 14 Days, #30 SPRAY Prov:MARYANA HANKS MD 12/27/18 Saliva Stimulant Agents Comb.3 (BIOTENE MOISTURIZING MOUTH) 44.3 Ml [place], 2 SPRAY PO PRN Q15MIN PRN for DRY MOUTH for 14 Days, #44 SPRAY Prov:MARYANA HANKS MD 12/27/18 Prednisone (PREDNISONE ) 10 Mg Tablet, 10 MG PO DAILY for ARTHRITIS for 14 Da ys, #14 TAB Prov:MARYANA HANKS MD 12/27/18 Docusate Sodium (COLACE) 100 Mg Capsule, 100 MG PO DAILY for CONSTIPATION for 30 Days, #30 CAP Prov:MARYANA HANKS MD 12/27/18 Oxycodone/Apap 5-325 (PERCOCET 5-325 MG TABLET ) 1 Each Tablet, 1 TAB PO PRN Q6HRS PRN for PAIN for 14 Days, #60 TAB Prov:MARYAAN HANKS MD 12/27/18 Diclofenac Sodium (VOLTAREN) 100 Gm Gel..gram., 1 [place]ER[place] TP BID for ARTHRITIC PAIN, TOPICAL for 30 Days, #60 EACH Prov:MARYANA HANKS MD 12/27/18 Ferrous Sulfate (FERROUS SULFATE) 300 Mg/5 Ml Liquid, 300 MG PO BIDWMEALS for ANEMIA for 30 Days, #300 LIQUID Prov:MARYANA HANKS MD 12/27/18 Pantoprazole Sodium (PROTONIX) 40 Mg Tablet.dr, 1 TAB PO DAILY, #30 TAB 5 Refills Prov:WESTLEY RAYGOZA MD 10/10/16 Amlodipine Besylate (NORVASC) 5 Mg Tablet, 5 MG PO DAILY for High blood pressure, #30 TAB 3 Refills Prov:PANCHO MORATAYA MD 11/07/14 Reported Medications Losartan Potassium (LOSARTAN POTASSIUM) 100 Mg Tablet, 100 MG PO DAILY, TAB 10/06/16 Acetaminophen (TYLENOL) 325 Mg Tablet, 1000 MG PO DAILY 12/13/15 Discontinued Reported Medications Prednisone (PREDNISONE) 2.5 Mg Tablet, 2 TAB PO DAILY, #30 TAB 3 Refills 10/06/16 Discontinued Scripts Oseltamivir Phosphate (TAMIFLU) 30 Mg Capsule, 1 CAP PO BID for flu for 5 Days, #10 CAP Prov:MARYANA HANKS MD 08/17/18 MARYANA HANKS MD Dec 27, 2018 13:05
--- NOTE | 2018-12-27 14:08 | NUR ---
SW following pt. MONIK phoned and faxed orders to [facility] and packet on chart. Pt will transport via [facility] transport at 1500. Pt's choice and rights forms verbally consented by pt and copies on chart. MONIK left a voice mail to pt's daughter about dc plan. RN notified.
--- NOTE | 2018-12-27 16:12 | NUR ---
Report called to receiving nurse Octavio at [facility]. Dismissed to [facility] at 1510 with all belongings per [facility] w/c van. 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
--- NOTE | 2018-12-29 16:06 | PDOC1 ---
History and Physical Date of Admission Date of Admission DATE: 12/29/18 TIME: 16:05 Identification/Chief Complaint Chief Complaint HISTORY AND PHYSICAL [facility] 12/29/18 IMPRESSION======== Joint pain and weakness diffuse joint pain exacerbation of rheumatoid arthritis dry mouth, sjogrens syndrome, weaknss and debility SEVERE Inflammatory arthritis. Left hand: No acute fracture or lytic process is seen. Generalized osteopenia is seen. There is anterior subluxation of the second proximal phalanx with respect to the second metacarpal bone. This is seen to a lesser extent involving the third metacarpal phalangeal joint and the first metacarpal phalangeal joint as well. This finding may be seen with ligament laxity and has been seen with lupus if there is a clinical history of such. Another possibility is old rheumatoid arthritis if there is history of such. There is erosion of the ulnar styloid process. There are erosions of the scaphoid trapezoid joint and scaphoid trapezium joint. There is widening of the scaphoid lunate joint space which may be seen with a scaphoid lunate ligament tear. 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 There is mild primary degenerative osteoarthritis of the interphalangeal joints. Right hand: There is anterior subluxation of the first through fifth proximal phalanges with respect to the first through fifth metacarpal bones. There are erosions of the scaphoid trapezium joint and the scaphoid trapezoid joint. The ulnar styloid process is chronically eroded. There is widening of the scaphoid lunate joint space which may be seen with a scaphoid lunate ligament tear. The lunate bone and carpus appears to be anteriorly subluxed with respect to the radius in the lateral view. This may be secondary to old trauma or severe ligament laxity. 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 Mild/moderate primary degenerative osteoarthritis and spurring of the interphalangeal joints is seen. No acute fracture or lytic process is evident. Generalized osteopenia is seen. IMPRESSION: The findings may reflect rheumatoid arthritis. Subluxation of metacarpal phalangeal joints has been reported with lupus as well. Scaphoid lunate ligament tear of both wrists. Anterior subluxation of the lunate bone and carpus with respect to the radius of the right wrist. This may be secondary to an old injury or could be related to severe ligament laxity. DICTATED and SIGNED BY: ANKIT CACERES MD DATE: 12/09/18 3222 History of Present Illness History of Present Illness The patient was seen resting in bed today. knees feel much better hands still an issue, needs SNU, PT/OT Past Medical History Cardiovascular: HTN Pulmonary: No pertinent hx CENTRAL NERVOUS SYSTEM: Other GI: GERD, Other Heme/Onc: No pertinent hx Hepatobiliary: No pertinent hx Psych: No pertinent hx Musculoskeletal: Osteoarthritis Rheumatologic: No pertinent hx Infectious disease: No pertinent hx Renal/: No pertinent hx Endocrine: Diabetes Past Surgical History Past Surgical History: Cataract Removal, Other Family History Family History: Hypertension Social History Smoke: No ALCOHOL: none Drugs: None Current Problem List Problem List Problems Medical Problems: (1) Anemia Status: Acute (2) Arthralgia Status: Acute (3) Generalized weakness Status: Acute Current Medications Current Medications Current Medications Fentanyl Citrate (Fentanyl 2ml Vial) 50 mcg 1X ONCE IV Last administered on 12/23/18 11:20; Start 12/23/18 at 10:30; Stop 12/23/18 at 10:32; Status DC Amlodipine Besylate (Norvasc) 5 mg DAILY PO Last administered on 12/27/18at 08:40; Start 12/23/18 at 14:00 Pantoprazole Sodium (Protonix) 40 mg DAILY PO Last administered on 12/27/18at 08 :37; Start 12/23/18 at 16:30 Losartan Potassium (Cozaar) 100 mg DAILY PO Last administered on 12/27/18at 08:36; Start 12/23/18 at 14:00 Docusate Sodium (Colace) 100 mg DAILY PO Last administered on 12/27/18at 08:34; Start 12/23/18 at 14:00 Docusate Sodium (Colace) 100 mg PRN DAILY PRN PO CONSTIPATION (1st Choice); Start 12/23/18 at 14:00 Polyethylene Glycol (miraLAX PACKET) 17 gm DAILY PO Last administered on 12/25/18at 08:08; Start 12/23/18 at 14:00 Polyethylene Glycol (miraLAX PACKET) 17 gm PRN DAILY PRN PO CONSTIPATION (2nd Choice); Start 12/23/18 at 14:00 Prednisone (Prednisone) 5 mg DAILY PO Last administered on 12/23/18at 14:58; Start 12/23/18 at 14:00; Stop 12/23/18 at 15:09; Status DC Enoxaparin Sodium (Lovenox Per Pharmacy Prophylaxis Dosing) 1 each PRN DAILY PRN MC SEE COMMENTS; Start 12/23/18 at 15:15 Sodium Chloride (Saline Mist Nasal) 1 [place] PRN Q1HR PRN NS NASAL CONGESTION; Start 12/23/18 at 15:15 Saliva Substitute (Biotene Moisturizing Mouth) 2 spray PRN Q15MIN PRN PO DRY MOUTH; Start 12/23/18 at 15:15 Potassium Chloride/Dextrose/ Sod Cl 1,000 ml @ 80 mls/hr 1X ONCE IV Last administered on 12/23/18at 16:33; Start 12/23/18 at 15:15; Stop 12/24/18 at 03:44; Status DC Enoxaparin Sodium (Lovenox 30mg Syringe) 30 mg Q24H SQ Last administered on 12/26/18at 16:48; Start 12/23/18 at 16:00 Oxycodone/ Acetaminophen (Percocet 5/325) 1 tab PRN Q6HRS PRN PO PAIN; Start 12/23/18 at 15:15 Methylprednisolone Acetate (DEPO-Medrol 40MG VIAL) 40 mg 1X ONCE IM Last administered on 12/23/18at 17:30; Start 12/23/18 at 17:30; Stop 12/23/18 at 17:31; Status DC Methylprednisolone Acetate (DEPO-Medrol 40MG VIAL) 40 mg 1X ONCE INJ Last administered on 12/23/18at 17:30; Start 12/23/18 at 17:30; Stop 12/23/18 at 17:31; Status DC Bupivacaine HCl (Sensorcaine-Mpf 0.25%) 10 ml 1X ONCE IJ Last administered on 12/23/18at 17:30; Start 12/23/18 at 17:30; Stop 12/23/18 at 17:31; Status DC Diclofenac Sodium (Voltaren) 1 genevieve BID TP Last administered on 12/27/18at 08:38; Start 12/23/18 at 21:00 Prednisone (Prednisone) 10 mg DAILY PO Last administered on 12/27/18at 08:37; Start 12/24/18 at 09:00 Ferrous Sulfate (Feosol) 325 mg BIDWMEALS PO ; Start 12/24/18 at 10:00; Status Cancel Ferrous Sulfate (Iron Oral Solution) 300 mg BIDWMEALS PO Last administered on 12/27/18at 08:33; Start 12/24/18 at 17:00 Active Scripts Active Restoril (Temazepam) 7.5 Mg Capsule 7.5 Mg PO PRN QHS PRN 10 Days Polyethylene Glycol 3350 17 Gm Powd.pack 17 Gm PO PRN DAILY PRN 14 Days [place] (Sodium Chloride) 44 Ml [place] 1 [place]ev[place] NS PRN Q1HR PRN 14 Days Biotene Moisturizing Mouth (Saliva Stimulant Agents Comb.3) 44.3 Ml [place] 2 [place] PO PRN Q15MIN PRN 14 Days Prednisone (Prednisone) 10 Mg Tablet 10 Mg PO DAILY 14 Days Colace (Docusate Sodium) 100 Mg Capsule 100 Mg PO DAILY 30 Days Percocet 5-325 Mg Tablet (Oxycodone/Acetaminophen) 1 Each Tablet 1 Tab PO PRN Q6HRS PRN 14 Days Voltaren (Diclofenac Sodium) 100 Gm Gel..gram. 1 [place] TP BID 30 Days Ferrous Sulfate 300 Mg/5 Ml Liquid 300 Mg PO BIDWMEALS 30 Days Protonix (Pantoprazole Sodium) 40 Mg Tablet.dr 1 Tab PO DAILY Norvasc (Amlodipine Besylate) 5 Mg Tablet 5 Mg PO DAILY Reported Losartan Potassium 100 Mg Tablet 100 Mg PO DAILY Tylenol (Acetaminophen) 325 Mg Tablet 1,000 Mg PO DAILY Allergies Allergies: Coded Allergies: No Known Drug Allergies (Unverified , 10/09/16) ROS Review of System History of Present Illness History of Present Illness Ms. Amanda is a 83 year old female brought in by EMS because mult complaints. joint pain, difficulty ambulating, worsening weakness and pain. Patient states she has chronic arthritis in all of her joints and currently taking Ultram witout much benefit. She reports she had been taken off of prednsone "because she had been on it too long" and that someone had refused to refill her Methotrexate, but it seemed that she may have needed to follow in clinic and did not. She now complains of her mouth being too dry to eat, and weakness and weight loss with the joint pain. She is complaining of pain in her hands, elbow and shoulder, hip , knees and ankle and rated her pain 8/10.. no acute change, gradual twisting frame changer time. Past Medical History Cardiovascular: HTN Pulmonary: No pertinent hx CENTRAL NERVOUS SYSTEM: Other GI: GERD, Other Heme/Onc: No pertinent hx Hepatobiliary: No pertinent hx Psych: No pertinent hx Musculoskeletal: Osteoarthritis Rheumatologic: No pertinent hx Infectious disease: No pertinent hx Renal/: No pertinent hx Endocrine: Diabetes Past Surgical History Past Surgical History: Cataract Removal, Other Family History Family History: Hypertension Social History Smoke: No ALCOHOL: none Drugs: None Current Problem List Problem List Problems Medical Problems: (1) Anemia Status: Acute (2) Arthralgia Status: Acute (3) Generalized weakness Status: Acute Current Medications Current Medications Current Medications Fentanyl Citrate (Fentanyl 2ml Vial) 50 mcg 1X ONCE IV Last administered on 12/23/18at 11:20; Start 12/23/18 at 10:30; Stop 12/23/18 at 10:32; Status DC Amlodipine Besylate (Norvasc) 5 mg DAILY PO Last administered on 12/23/18at 14:58; Start 12/23/18 at 14:00 Pantoprazole Sodium (Protonix) 40 mg DAILY PO Last administered on 12/23/18at 15:01; Start 12/23/18 at 16:30 Losartan Potassium (Cozaar) 100 mg DAILY PO Last administered on 12/23/18at 14:58; Start 12/23/18 at 14:00 Docusate Sodium (Colace) 100 mg DAILY PO ; Start 12/23/18 at 14:00 Docusate Sodium (Colace) 100 mg PRN DAILY PRN PO CONSTIPATION (1st Choice); Start 12/23/18 at 14:00 Polyethylene Glycol (miraLAX PACKET) 17 gm DAILY PO Last administered on 12/23/18at 14:58; Start 12/23/18 at 14:00 Polyethylene Glycol (miraLAX PACKET) 17 gm PRN DAILY PRN PO CONSTIPATION (2nd Choice); Start 12/23/18 at 14:00 Prednisone (Prednisone) 5 mg DAILY PO Last administered on 12/23/18at 14:58; Start 12/23/18 at 14:00 Active Scripts Active Tamiflu (Oseltamivir Phosphate) 30 Mg Capsule 1 Cap PO BID 5 Days Protonix (Pantoprazole Sodium) 40 Mg Tablet.dr 1 Tab PO DAILY Norvasc (Amlodipine Besylate) 5 Mg Tablet 5 Mg PO DAILY Reported Losartan Potassium 100 Mg Tablet 100 Mg PO DAILY Prednisone 2.5 Mg Tablet 2 Tab PO DAILY Tylenol (Acetaminophen) 325 Mg Tablet 1,000 Mg PO DAILY Allergies Allergies: Coded Allergies: No Known Drug Allergies (Unverified , 10/09/16) ROS General: YES: Fatigue, Malaise; No: Chills, Night Sweats, Appetite, Other PSYCHOLOGICAL ROS: YES: Sleep disturbances; No: Anxiety, Behavioral Disorder, Concentration difficultie, Decreased libido, Depression, Disorientation, Hallucinations, Hostility, Irritablity, Memory difficulties, Mood Swings, Obsessive thoughts, Physical abuse, Sexual abuse, Suicidal ideation, Other Eyes: No Blurry vision, No Decreased vision, No Double vision, No Dry eyes, No Excessive tearing, No Eye Pain, No Itchy Eyes, No Loss of vision, No Photophobia, No Scotomata, No Uses contacts, No Uses glasses, No Other HEENT: YES: Heacaches, Sinus pain, Other (dry); No: Visual Changes, Hearing change, Nasal congestion, Nasal discharge, Oral lesions, Sore Throat, Epistaxis, Sneezing, Snoring, Tinnitus, Vertigo, Vocal changes Respiratory: No: Cough, Hemoptysis, Pleuritic Pain, Shortness of breath, SOB with excertion, Sputum Changes, Stridor, Tachypnea, Wheezing, Other Cardiovascular: No Chest Pain, No Palpitations, No Orthopnea, No Paroxysmal Noc. Dyspnea, No Edema, No Lt Headedness, No Other Gastrointestinal: No Nausea, No Vomiting, No Abdominal Pain, No Diarrhea, No Constipation, No Melena, No Hematochezia, No Other Genitourinary: No Dysuria, No Frequency, No Incontinence, No Hematuria, No Retention, No Discharge, No Urgency, No Pain, No Flank Pain, No Other, No , No , No , No , No , No , No Musculoskeletal: Yes Gait Disturbance, Yes Joint Pain, Yes Joint Stiffness Neurological: Yes Gait Disturbance Skin: Yes Dry Skin, Yes Other Physical Exam General: Alert, Oriented X3, mild distress HEENT: PERRLA, Mucous membr. moist/pink, Other (dry op) Lungs: Clear to auscultation, Normal air movement Heart: no gallops Abdomen: Normal bowel sounds, Soft Rectal Exam: not examined Extremities: No cyanosis, No edema, Other (boggy itp joints, lateral deviation of digtis, muscle wasting of hands) Skin: No rashes, No significant lesion Neuro: Normal speech, Sensation intact, Reflexes 2+, Other Psych/Mental Status: Mental status NL, Mood NL General: YES: Fatigue HEENT: No: Heacaches, Visual Changes, Hearing change, Nasal congestion, Nasal discharge, Oral lesions, Sinus pain, Sore Throat, Epistaxis, Sneezing, Snoring, Tinnitus, Vertigo, Vocal changes, Other ALLERGY AND IMMUNOLOGY: No: Hives, Insect Bite Sensitivity, Itchy/Watery Eyes, Nasal Congestion, Post Nasal Drip, Seasonal Allergies, Other Cardiovascular: No Chest Pain, No Palpitations, No Orthopnea, No Paroxysmal Noc. Dyspnea, No Edema, No Lt Headedness, No Other Gastrointestinal: No Nausea, No Vomiting, No Abdominal Pain, No Diarrhea, No Constipation, No Melena, No Hematochezia, No Other Musculoskeletal: Yes Gait Disturbance, Yes Joint Pain, Yes Joint Stiffness Neurological: Yes Gait Disturbance; No Behavorial Changes, No Bowel/Bladder ControlChng, No Confusion, No Dizziness, No Headaches, No Impaired Coord/balance, No Memory Loss, No Numbness/Tingling, No Seizures, No Speech Problems, No Tremors, No Visual Changes, No Weakness, No Other Physical Exam Physical Exam Physical Exam General: Alert, Oriented X3, Cooperative, No acute distress Heart: Regular rate, Normal S1, Normal S2, No murmurs Lungs: Clear (No wheezes, rales, or rhonchi), Crackles Abdomen: Normal bowel sounds, Soft, No tenderness, No masses Extremities: No edema, Normal pulses, Other (boggy itp joints, lateral deviation of digtis, muscle wasting of hands) Skin: No rashes, No breakdown, No significant lesion General: Oriented X3, Cooperative, mild distress Heart: no thrills Breasts: Not examined Rectal Exam: not examined PELVIC: Examination not indicated Extremities: No clubbing, No cyanosis Skin: No significant lesion Neuro: Normal speech, Cranial nerves 3-12 NL Psych/Mental Status: Mental status NL, Mood NL Vitals Vitals Vital Signs Date Time Temp Pulse Resp B/P (MAP) Pulse Ox O2 Delivery O2 Flow Rate FiO2 12/27/18 10:52 97.7 66 20 147/67 (93) 98 Room Air 97.7 VTE Prophylaxis Ordered VTE Prophylaxis Devices: Yes VTE Pharmacological Prophylaxi: Yes Assessment/Plan Assessment/Plan IMPRESSION Joint pain and weakness diffuse joint pain exacerbation of rheumatoid arthritis, SEVERE dry mouth, sjogrens syndrome, c weaknss and debility SEVERE Inflammatory arthritis. PLAN ADMIT SNU PP PT/OT/ MEDS PAIN CONTROL MARYANA HANKS MD December 29, 2018 16:06
== END 2018-12-27 15:10 | DRG 545 ==
LOC: ER 10:14 → 5 NORTH 12:20
PROVIDERS: ADMIT Internal Medicine; ATTEND Internal Medicine
PROC: 3E0U33Z Introduction of Anti-inflammatory into Joints, Percutaneous Approach (ICD-10-PCS; principal; 2018-12-23)
PROC: 3E0U3BZ Introduction of Anesthetic Agent into Joints, Percutaneous Approach (ICD-10-PCS; 2018-12-23)
DX: M06.9 Rheumatoid arthritis, unspecified (principal); E43 Unspecified severe protein-calorie malnutrition; M17.0 Bilateral primary osteoarthritis of knee; M19.012 Primary osteoarthritis, left shoulder; M19.011 Primary osteoarthritis, right shoulder; I10 Essential (primary) hypertension; D64.9 Anemia, unspecified; K21.9 Gastro-esophageal reflux disease without esophagitis; M35.00 Sjogren syndrome, unspecified; G89.29 Other chronic pain; M51.36 Other intervertebral disc degeneration, lumbar region; M47.816 Spondylosis without myelopathy or radiculopathy, lumbar region; M19.022 Primary osteoarthritis, left elbow; M19.021 Primary osteoarthritis, right elbow; M19.032 Primary osteoarthritis, left wrist; M19.031 Primary osteoarthritis, right wrist; M19.042 Primary osteoarthritis, left hand; M19.041 Primary osteoarthritis, right hand; M06.4 Inflammatory polyarthropathy; M85.80 Other specified disorders of bone density and structure, unspecified site; M20.029 Boutonniere deformity of unspecified finger(s); E09.9 Drug or chemical induced diabetes mellitus without complications; T38.0X5A Adverse effect of glucocorticoids and synthetic analogues, initial encounter; Y92.89 Other specified places as the place of occurrence of the external cause; Z90.49 Acquired absence of other specified parts of digestive tract; Z98.891 History of uterine scar from previous surgery; Z79.899 Other long term (current) drug therapy; Z82.49 Family history of ischemic heart disease and other diseases of the circulatory system; Z68.20 Body mass index [BMI] 20.0-20.9, adult
CPT/HCPCS: 36415; 80048; 80053; 81001; 84550; 85025; 85651; 87086; 96374; J1030; J1650; J3010; J3490; J7512; 97530; 99285-25

== ENCOUNTER 2020-04-09 15:27 | Inpatient (IN) | payer MEDICARE ==
[~2020-04-09] VITALS: Ht 149.9 cm; Wt 49.5 kg
[~2020-04-09 15:27] MED LIST changes: +DICL100G54 TP; +DOCU-109 PO; +FERR300L PO; +OXYC1TAB15 PO; -PANT40TA3 PO; +PANT40TA77 PO; +POLY17PO28 PO; +PRED-220 PO; +SALI44.3 PO; +SODI44SP NS; +TEMA7.5C2 PO
[2020-04-09] MEDS ORDERED: IOHEXOL 300 MG/ML 100ML VIAL. IV ONE (16:00)
[2020-04-09 16:03] LABS: BASO % 0 % (0-3); EOS % 0 % (0-3); HEMATOCRIT 36.6 % (36.0-47.0); HEMOGLOBIN 12.1 g/dL (12.0-15.5); LYMPH # 1.1 x10^3/uL (1.0-4.8); LYMPH % 8 % (24-48); MEAN CORPUSCULAR HEMOGLOBIN 27 pg (25-35); MEAN CORPUSCULAR HGB CONC 33 g/dL (31-37); MEAN CORPUSCULAR VOLUME 82 fL (79-100); MONO # 0.4 x10^3/uL (0.0-1.1); MONO % 3 % (0-9); NEUT # 12.7 x10^3/uL (1.8-7.7); NEUT % 89 % (31-73); PLATELET COUNT 323 x10^3/uL (140-400); RED BLOOD COUNT 4.44 x10^6/uL (3.50-5.40); RED CELL DISTRIBUTION WIDTH 16.6 % (11.5-14.5); WHITE BLOOD COUNT 14.3 x10^3/uL (4.0-11.0)
[2020-04-09 16:13] LABS: PROTHROMBIN TIME PATIENT 13.4 SEC (11.7-14.0)
[2020-04-09] MEDS ORDERED: CONTRAST GIVEN. MC PRN (16:15)
[2020-04-09 16:21] LABS: CALCIUM 8.9 mg/dL (8.5-10.1); CREATININE 1.3 mg/dL (0.6-1.0); GFR 47.1
--- NOTE | 2020-04-09 16:22 | RAD ---
EXAM: CT Head without IV contrast INDICATION: Reason: Slurred speech. STROKE WAS CALLED AT 15:50PM OVERPAGED, CT READY AT 15:50 / Spl. Instructions: ED ROOM 4 Dr. Llamas [phone] / History: TECHNIQUE: Multi-detector row CT images were obtained of the head without the use of IV contrast. All CT scans performed at this facility utilize dose optimization techniques as appropriate to the exam, including the following: Automated exposure control and adjustment of the mA and/or KV according to patient size (this includes techniques or standardized protocols for targeted exams where dose is indication/reason for exam). COMPARISON: None FINDINGS: BRAIN PARENCHYMA: No evidence of acute intraparenchymal hemorrhage or infarct. Is generalized parenchymal volume loss and white matter low density compatible chronic ischemic microvascular change. This is best appreciated in the bilateral frontal lobes. VENTRICLES & EXTRA-AXIAL SPACES: Ventricles are within normal limits. Basilar cisterns are patent. No pathologic extra-axial fluid collection or mass. ORBITS: Orbital contents are unremarkable. SINUSES: Visualized paranasal sinuses and mastoid air cells are clear. OSSEOUS & SOFT TISSUES: Calvarium and skull base are intact. IMPRESSION: No acute intracranial pathology. FOR INTERNAL CODING PURPOSES Critical result: Findings discussed with BANDAR LLAMAS at 04/09/2020 4:16 PM. RESULT CODE: (C) Electronically signed by: Claude Manuel MD (04/09/2020 4:20 PM) [id number]
[2020-04-09 16:27] LABS: ALBUMIN 3.2 g/dL (3.4-5.0); ALBUMIN/GLOBULIN RATIO 0.7 (1.0-1.7); MAGNESIUM 2.2 mg/dL (1.8-2.4); TOTAL BILIRUBIN 0.5 mg/dL (0.2-1.0)
--- NOTE | 2020-04-09 16:46 | RAD ---
EXAM: CT Angiogram of the Head and Neck INDICATION: Reason: Slurred speech. STROKE WAS CALLED AT 15:50PM OVERPAGED, CT READY AT 15:50 / Spl. Instructions: IV OMNI 300 60 MLS / History: TECHNIQUE: CT images were obtained through the head per standard CTA protocol. Multiplanar and 3D reformatted images were generated from the CT dataset on an independent workstation. All CT scans performed at this facility utilize dose optimization techniques as appropriate to the exam, including the following: Automated exposure control and adjustment of the mA and/or KV according to patient size (this includes techniques or standardized protocols for targeted exams where dose is indication/reason for exam). IV CONTRAST: Administered COMPARISON: Noncontrast head CT obtained the same day. FINDINGS: CTA HEAD: No high-grade large vessel stenosis, proximal or branch vessel occlusion, large aneurysm, or vascular malformation. ANTERIOR CIRCULATION: Anterior and middle cerebral arteries are widely patent. ANTERIOR COMMUNICATING ARTERY: Diminutive, likely present. POSTERIOR COMMUNICATING ARTERIES: Present bilaterally and patent. POSTERIOR CIRCULATION: Vertebral arteries and basilar artery are patent. 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 The right vertebral artery is dominant. The left superior cerebellar artery is well seen. Bilateral AICA PICA are diminutive but present and patent. OTHER: No abnormal brain parenchymal enhancement. The paranasal sinuses, mastoid air cells, and tympanic cavities show bilateral mastoid effusions but otherwise are well aerated.. Partially empty sella with remodeling of the floor of the sella. NECK CTA: AORTA: 3 vessel configuration of arch. No dissection or acute aortic injury. No hemodynamically significant great vessel origin stenosis. RIGHT CAROTID: Common and internal carotid arteries are patent, without evidence of flow limiting stenosis or dissection. Calcified plaque is present in the distal right common carotid artery and in the proximal right cervical internal carotid artery. This results in less than 50 percent stenosis. LEFT CAROTID: Common and internal carotid arteries are patent, without evidence of flow limiting stenosis or dissection. Calcified and noncalcified plaque is present at the left distal common carotid artery and the proximal left internal carotid artery. This is the result in significant stenosis. VERTEBRAL ARTERIES: Right dominant. No evidence of dissection or flow limiting stenosis. SUBCLAVIAN ARTERIES:Subclavian arteries are patent without stenosis. SOFT TISSUES: Soft tissues are unremarkable. Lung apices are clear. C-spine degenerative changes are present. No acute or aggressive appearing osseous lesions Where applicable, evaluation of ICA stenosis was performed using NASCET criteria, where the site of greatest stenosis is compared to the diameter of the ICA distal to the carotid bulb. IMPRESSION: 1. 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 No evidence of a large vessel occlusion, hemodynamically significant stenosis, vascular malformation or large aneurysm. 2. CTA of the neck shows a less than 50 percent stenosis in the proximal right cervical ICA. No evidence of dissection, high-grade stenosis or occlusion. FOR INTERNAL CODING PURPOSES Critical result: Findings discussed with BANDAR BARRIGA at 04/09/2020 4:18 PM. RESULT CODE: (C) Electronically signed by: Claude Manuel MD (04/09/2020 4:43 PM) [id number]
[2020-04-09 16:57] LABS: BILIRUBIN,URINE NEGATIVE (NEG); CLARITY,URINE CLEAR; COLOR,URINE YELLOW; NITRITE,URINE NEGATIVE (NEG); PH,URINE 6.5 (<5.0-8.0); PROTEIN,URINE NEGATIVE (NEG-TRACE)
[2020-04-09 17:07] LABS: AMORPHOUS SEDIMENT,UR PRESENT /HPF; BACTERIA,URINE MOD /HPF (0-FEW); HYALINE CASTS, URINE FEW /HPF; SQUAMOUS EPITHELIAL CELL,UR FEW /LPF
[2020-04-09 18:15] LABS: % LYMPHS 9 % (24-48); % MONOS 4 % (0-10); % SEGS 87 % (35-66)
[2020-04-09 18:16] LABS: PLT ESTIMATE ADEQUATE (ADEQUATE)
--- NOTE | 2020-04-09 18:21 | PHYS DOC ---
Past Medical History Past Medical History: Arthritis, Hypertension, Other Additional Past Medical Histor: Psoriasis, RA Past Surgical History: Appendectomy, , Other Additional Past Surgical Histo: Rotator Cuff Smoking Status: Never Smoker Alcohol Use: None Drug Use: None General Adult EDM: Chief Complaint: NEURO SYMPTOMS/DEFICITS HPI: HPI: Patient is a 84 year old female who presents with garbled speech that started at 11 AM this morning. Patient denies any other symptoms. She does seem to have mild confusion. History is limited due to speech difficulty. Review of Systems: Review of Systems: General: Denies fever, chills, sweats, fatigue Eyes: Denies drainage, blurred vision, eye redness HENT: Denies rhinorrhea, sore throat, earache Respiratory: Denies cough, shortness of breath, wheezing Cardiac: Denies edema, palpitations, chest pain GI: Denies abdominal pain, Nausea, vomiting MSK: Denies back pain, neck pain Skin: Denies rash, jaundice Neuro: Denies headache, dizziness reports speech difficulty Psychiatric: Denies SI/HI Heart Score: Risk Factors: Risk Factors: DM, Current or recent (<one month) smoker, HTN, HLP, family history of CAD, obesity. Risk Scores: Score 0 - 3: 2.5% MACE over next 6 weeks - Discharge Home Score 4 - 6: 20.3% MACE over next 6 weeks - Admit for Clinical Observation Score 7 - 10: 72.7% MACE over next 6 weeks - Early Invasive Strategies Current Medications: Current Medications Medications (Trade) Dose Ordered Sig/Marilu Start Time Stop Time Status Last Admin Dose Admin Info (CONTRAST GIVEN -- Rx MONITORING) 1 each PRN DAILY PRN 04/09/20 16:15 04/11/20 16:14 Iohexol (Omnipaque 300 Mg/ml) 60 ml 1X ONCE 04/09/20 16:00 04/09/20 16:01 DC 04/09/20 16:17 60 ML Allergies: Allergies: Allergies Coded Allergies Type Severity Reaction Last Updated Verified Penicillins Allergy Unknown 04/09/20 Yes Physical Exam: PE: General: Awake, alert, NAD. Well Nourished, well hydrated. Cooperative HEENT: Atraumatic, EOMI, PERRL, eye patch in place, airway patent, moist oral mucosa Neck: Supple, trachea midline Respiratory: CTA bilaterally, normal effort, no wheezing/crackles CV: RRR, no murmur, cap refill <2 GI: Soft, nondistended, nontender, no masses MSK: No obvious deformities Skin: Warm, dry, intact Neuro: A&O x3, speech garbled, sensory and motor grossly intact, cranial nerves II through XII intact Psych: Normal affect, normal mood, not suicidal or homicidal Current Patient Data: Labs: Laboratory Tests Test 04/09/20 15:54 04/09/20 16:50 White Blood Count 14.3 x10^3/uL (4.0-11.0) H Red Blood Count 4.44 x10^6/uL (3.50-5.40) Hemoglobin 12.1 g/dL (12.0-15.5) Hematocrit 36.6 % (36.0-47.0) Mean Corpuscular Volume 82 fL (79-100) Mean Corpuscular Hemoglobin 27 pg (25-35) Mean Corpuscular Hemoglobin Concent 33 g/dL (31-37) Red Cell Distribution Width 16.6 % (11.5-14.5) H Platelet Count 323 x10^3/uL (140-400) Neutrophils (%) (Auto) 89 % (31-73) H Lymphocytes (%) (Auto) 8 % (24-48) L Monocytes (%) (Auto) 3 % (0-9) Eosinophils (%) (Auto) 0 % (0-3) Basophils (%) (Auto) 0 % (0-3) Neutrophils # (Auto) 12.7 x10^3/uL (1.8-7.7) H Lymphocytes # (Auto) 1.1 x10^3/uL (1.0-4.8) Monocytes # (Auto) 0.4 x10^3/uL (0.0-1.1) Eosinophils # (Auto) 0.0 x10^3/uL (0.0-0.7) Basophils # (Auto) 0.0 x10^3/uL (0.0-0.2) Segmented Neutrophils % 87 % (35-66) H Lymphocytes % 9 % (24-48) L Monocytes % 4 % (0-10) Platelet Estimate Adequate (ADEQUATE) Prothrombin Time 13.4 SEC (11.7-14.0) Prothrombin Time INR 1.1 (0.8-1.1) Activated Partial Thromboplast Time 26 SEC (24-38) Sodium Level 135 mmol/L (136-145) L Potassium Level 5.0 mmol/L (3.5-5.1) # Chloride Level 100 mmol/L (98-107) Carbon Dioxide Level 28 mmol/L (21-32) Anion Gap 7 (6-14) Blood Urea Nitrogen 29 mg/dL (7-20) H Creatinine 1.3 mg/dL (0.6-1.0) H Estimated GFR (Cockcroft-Gault) 47.1 BUN/Creatinine Ratio 22 (6-20) H Glucose Level 177 mg/dL (70-99) H Calcium Level 8.9 mg/dL (8.5-10.1) Magnesium Level 2.2 mg/dL (1.8-2.4) Total Bilirubin 0.5 mg/dL (0.2-1.0) Aspartate Amino Transferase (AST) 33 U/L (15-37) Alanine Aminotransferase (ALT) 39 U/L (14-59) Alkaline Phosphatase 95 U/L (46-116) Ammonia < 10 mcmol/L (11-34) L Troponin I Quantitative < 0.017 ng/mL (0.000-0.055) Total Protein 8.0 g/dL (6.4-8.2) Albumin 3.2 g/dL (3.4-5.0) L Albumin/Globulin Ratio 0.7 (1.0-1.7) L Urine Collection Type Unknown Urine Color Yellow Urine Clarity Clear Urine pH 6.5 (<5.0-8.0) Urine Specific [place] 1.025 (1.000-1.030) Urine Protein Negative mg/dL (NEG-TRACE) Urine Glucose (UA) Negative mg/dL (NEG) Urine Ketones (Stick) Negative mg/dL (NEG) Urine Blood Trace (NEG) Urine Nitrite Negative (NEG) Urine Bilirubin Negative (NEG) Urine Urobilinogen Dipstick 1.0 mg/dL (0.2 mg/dL) Urine Leukocyte Esterase Moderate (NEG) Urine RBC 3-5 /HPF (0-2) Urine WBC 5-10 /HPF (0-4) Urine Squamous Epithelial Cells Few /LPF Urine Amorphous Sediment Present /HPF Urine Bacteria Mod /HPF (0-FEW) Urine Hyaline Casts Few /HPF Urine Mucus Slight /LPF Laboratory Tests 04/09/20 15:54 Laboratory Tests 04/09/20 15:54 Vital Signs: Vital Signs Date Time Temp Pulse Resp B/P (MAP) Pulse Ox O2 Delivery O2 Flow Rate FiO2 04/09/20 15:35 98.3 77 20 147/67 (93) 98 Room Air 98.3 EKG: EKG: [] Radiology/Procedures: Radiology/Procedures: [] Course & Med Decision Making: Course & Med Decision Making Pertinent Labs and Imaging studies reviewed. (See chart for details) Patient is an 84-year-old female who presents to the emergency room with garbled speech. This appears to be different than her baseline though she has had these symptoms previously. CT head and CT Keesha of head and neck were done. There is no signs of a large vessel occlusion or subacute stroke. Metabolic work-up was also ordered. Patient will be admitted for neurology evaluation. Patient was out of the TPA window upon arrival. Dragon Disclaimer: Lizet Disclaimer: This electronic medical record was generated, in whole or in part, using a voice recognition dictation system. Departure Departure Impression: Primary Impression: Aphasia Disposition: ADMITTED INPATIENT Condition: STABLE Referrals: CATHLEEN SHUKLA III, DO (PCP) Justicifation of Admission Dx: Justifications for Admission: Justification of Admission Dx: Yes BANDAR BARRIGA MD Apr 09, 2020 18:21
[2020-04-09 19:30] VITALS: BP 166/59
--- NOTE | 2020-04-09 20:00 | NUR ---
Admit from ED via [place] to [address] [place] [address] room 246. Alert. Orientated. Pleasant. Garbled speech noted on admit. Patch to left eye in place r/t history of diplopia. Transferred from ED [place] to bed in room with 3 person lift. Able to turn from side to side in bed with minimal assist. Oriented to unit and call light. Reviewed POC to include tele monitor, neuro checks and out of bed with assist. Verbalized understanding. Resting in bed watching TV with call light at hand. Able to change channels with remote without difficulty. Bed alarm on.
[2020-04-09] MEDS ORDERED: TRAM50TA PO (20:35)
[2020-04-09] MEDS ORDERED: ACET325T9 PO (20:36)
[2020-04-09] MEDS ORDERED: HYDR-2868 PO (20:50)
[2020-04-09] MEDS ORDERED: ASPI-886 PO (20:52)
[2020-04-09] MEDS ORDERED: ATOR40TA PO (20:54)
[2020-04-09 22:50] VITALS: BP 190/82
[2020-04-10] MEDS ORDERED: hydrALAZINE 20 MG/ML VIAL. IVP PRN (00:15)
[2020-04-10 03:20] VITALS: BP 191/90
--- NOTE | 2020-04-10 04:35 | NUR ---
BlP was 191/90 with HR 64. Gave Hydralazine 5mg IVP as ordered prn SBP >170. BP now 112/56 with HR 81. Patient resting in bed with call light at hand. Bed alarm on.
--- NOTE | 2020-04-10 04:49 | EKG ---
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
[2020-04-10 07:00] VITALS: BP 125/59
--- NOTE | 2020-04-10 08:37 | EKG ---
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
[2020-04-10] MEDS: ASPIRIN RECTAL 300 MG SUPP. PR SCH (08:42)
[2020-04-10] MEDS ORDERED: ACETAMINOPHEN 650 MG SUPP.RECT. PR PRN (08:45)
[2020-04-10] MEDS ORDERED: ASPIRIN RECTAL 300 MG SUPP. PR PRN (08:45)
[2020-04-10] MEDS ORDERED: ACETAMINOPHEN 325 MG TABLET. PO PRN (08:45)
[2020-04-10] MEDS: ASPIRIN ENTERIC COATED 325 MG TABLET.DR. PO SCH (09:00)
--- NOTE | 2020-04-10 10:02 | RAD ---
EXAM: MRI Brain with and without IV contrast INDICATION: Reason: CVA, aphasia, left palsy, CALL REPORT TO [facility] AT [phone] / [place]. Instructions: / History: . TECHNIQUE: Sagittal and axial T1-w and axial T2-w, FLAIR, GRE, coronal T2-w, and diffusion-w images of the brain with ADC maps without contrast followed by post contrast axial and sagittal T1-w and coronal T1-fatsat sequences. IV CONTRAST: Administered COMPARISON: Noncontrast head CT of 04/09/2020. FINDINGS: BRAIN PARENCHYMA: Restricted diffusion is present in the left deep carrington nuclei near the lateral left thalamus. No acute hemorrhage is demonstrated. No mass effect noted. There is extensive white matter T2 and FLAIR signal hyperintensity compatible with chronic ischemic microvascular change and gliosis from prior lacunar infarcts. Tiny foci of susceptibility along the posterior frontal gyri are compatible with petechial hemorrhages or changes of laminar necrosis from previous infarction.. VENTRICLES & EXTRA-AXIAL SPACES: Ventricles are enlarged in proportion to the degree of parenchymal volume loss present. Basilar cisterns are patent. No abnormal extra-axial fluid or mass. No abnormal enhancement. VESSELS: Normal signal voids in the larger intracranial vessels. ORBITS: Orbital contents are unremarkable. SINUSES: Paranasal sinuses are clear. Tympanic cavities and mastoid air cells are clear. OSSEOUS & SOFT TISSUES: Marrow signal is within normal limits. IMPRESSION: Small acute infarct in the left basal ganglia without hemorrhagic transformation or mass effect. Report telephoned to the floor where nurse Vigil took the report on behalf of Dr. Torres at 9:53 AM on 04/10/2020 Electronically signed by: Claude Manuel MD (04/10/2020 9:59 AM) [id number]
[2020-04-10 11:00] VITALS: BP 123/65
[2020-04-10] MEDS ORDERED: traMADol 50 MG TABLET PO PRN (11:00)
--- NOTE | 2020-04-10 11:07 | PDOC1 ---
History and Physical Date of Admission Date of Admission DATE: 04/10/20 TIME: 10:58 Identification/Chief Complaint Chief Complaint garbled speech Source Source: Chart review, Patient History of Present Illness History of Present Illness Kim is a 84 year old female wellknown to me, who presents with garbled speech that started at 11 AM this morning. Patient denies any other symptoms. She does seem to have mild confusion. History is limited due to speech difficulty. Past Medical History Cardiovascular: HTN Pulmonary: No pertinent hx CENTRAL NERVOUS SYSTEM: Other GI: GERD, Other Heme/Onc: No pertinent hx Hepatobiliary: No pertinent hx Psych: No pertinent hx Musculoskeletal: Osteoarthritis Rheumatologic: No pertinent hx Infectious disease: No pertinent hx Renal/: No pertinent hx Endocrine: Diabetes Past Surgical History Past Surgical History: Cataract Removal, Other Family History Family History: Hypertension Social History Smoke: No ALCOHOL: none Drugs: None Current Problem List Problem List Problems Medical Problems: (1) Aphasia Status: Acute Current Medications Current Medications Current Medications Iohexol (Omnipaque 300 Mg/ml) 60 ml 1X ONCE IV Last administered on 04/09/20at 16:17; Start 04/09/20 at 16:00; Stop 04/09/20 at 16:01; Status DC Info (CONTRAST GIVEN -- Rx MONITORING) 1 each PRN DAILY PRN MC SEE COMMENTS; Start 04/09/20 at 16:15; Stop 04/11/20 at 16:14 Hydralazine HCl (Apresoline Inj) 5 mg PRN Q4HRS PRN IVP ELEVATED BP, SEE COMMENTS Last administered on 04/10/20at 03:37; Start 04/10/20 at 00:15 Aspirin (Aspirin Rectal Supp) 300 mg DAILY NC Last administered on 04/10/20at 08:42; Start 04/10/20 at 09:00 Acetaminophen (Tylenol) 650 mg PRN Q6HRS PRN PO TEMP > 100.4F; Start 04/10/20 at 08:45 Acetaminophen (Tylenol Supp) 650 mg PRN Q4HRS PRN NC TEMP > 100.4F; Start 04/10/20 at 08:45 Aspirin (Ecotrin) 325 mg DAILYWBKFT PO ; Start 04/10/20 at 09:00 Aspirin (Aspirin Rectal Supp) 300 mg PRN DAILY PRN NC IF UNABLE TO TAKE PO; Start 04/10/20 at 08:45 Ceftriaxone Sodium (Rocephin) 1 gm Q24H IVP ; Start 04/10/20 at 12:00 Acetaminophen (Tylenol) 650 mg Q6HRS PO ; Start 04/10/20 at 12:00 Amlodipine Besylate (Norvasc) 5 mg DAILY PO ; Start 04/10/20 at 12:00 Aspirin (Ecotrin) 81 mg DAILY PO ; Start 04/10/20 at 12:00; Stop 04/10/20 at 10:57; Status DC Atorvastatin Calcium (Lipitor) 40 mg HS PO ; Start 04/10/20 at 21:00 Diclofenac Sodium (Voltaren) 1 genevieve BID TP ; Start 04/10/20 at 12:00 Hydralazine HCl (Apresoline) 25 mg Q6HRS PO ; Start 04/10/20 at 12:00 Prednisone (Prednisone) 10 mg DAILYWBKFT PO ; Start 04/10/20 at 12:00 Tramadol HCl (Ultram) 50 mg PRN Q6HRS PRN PO MILD PAIN 1-3; Start 04/10/20 at 11:00 Active Scripts Active Prednisone (Prednisone) 10 Mg Tablet 10 Mg PO DAILY 14 Days Voltaren (Diclofenac Sodium) 100 Gm Gel..gram. 1 Genevieve TP BID 30 Days Norvasc (Amlodipine Besylate) 5 Mg Tablet 5 Mg PO DAILY Reported Lipitor (Atorvastatin Calcium) 40 Mg Tablet 40 Mg PO HS Aspirin Ec (Aspirin) 81 Mg Tablet.dr 81 Mg PO DAILY Hydralazine Hcl 25 Mg Tablet 25 Mg PO Q6HRS Q6hrs as needed for SBP >160 Tylenol (Acetaminophen) 325 Mg Tablet 650 Mg PO Q6HRS Tramadol Hcl 50 Mg Tablet 50 Mg PO Q6HRS PRN Allergies Allergies: Coded Allergies: Penicillins (Verified Allergy, Unknown, 04/09/20) ROS General: YES: Fatigue, Malaise PSYCHOLOGICAL ROS: No: Anxiety, Behavioral Disorder, Concentration difficultie, Decreased libido, Depression, Disorientation, Hallucinations, Hostility, Irr itablity, Memory difficulties, Mood Swings, Obsessive thoughts, Physical abuse, Sexual abuse, Sleep disturbances, Suicidal ideation, Other Eyes: No Blurry vision, No Decreased vision, No Double vision, No Dry eyes, No Excessive tearing, No Eye Pain, No Itchy Eyes, No Loss of vision, No Photophobia, No Scotomata, No Uses contacts, No Uses glasses, No Other HEENT: YES: Heacaches; No: Visual Changes, Hearing change, Nasal congestion, Nasal discharge, Oral lesions, Sinus pain, Sore Throat, Epistaxis, Sneezing, Snoring, Tinnitus, Vertigo, Vocal changes, Other Respiratory: No: Cough, Hemoptysis, Orthopnea, Pleuritic Pain, Shortness of breath, SOB with excertion, Sputum Changes, Stridor, Tachypnea, Wheezing, Other Cardiovascular: No Chest Pain, No Palpitations, No Orthopnea, No Paroxysmal Noc. Dyspnea, No Edema, No Lt Headedness, No Other Gastrointestinal: No Nausea, No Vomiting, No Abdominal Pain, No Diarrhea, No Constipation, No Melena, No Hematochezia, No Other Genitourinary: No Dysuria, No Frequency, No Incontinence, No Hematuria, No Retention, No Discharge, No Urgency, No Pain, No Flank Pain, No Other, No , No , No , No , No , No , No Musculoskeletal: Yes Joint Stiffness Neurological: Yes Memory Loss, Yes Other (verbal difficulty, ); No Behavorial Changes, No Bowel/Bladder ControlChng, No Confusion, No Dizziness, No Gait Disturbance, No Headaches, No Impaired Coord/balance, No Numbness/Tingling, No Seizures, No Speech Problems, No Tremors, No Visual Changes, No Weakness Skin: No Dry Skin, No Eczema, No Hair Changes, No Lumps, No Mole Changes, No Mottling, No Nail Changes, No Pruritus, No Rash, No Skin Lesion Changes, No Other, No Acne Physical Exam General: Alert, Cooperative, No acute distress, Other (trouble talking speaking double, ) HEENT: PERRLA, EOMI Lungs: Normal air movement Heart: S1S2 Abdomen: Normal bowel sounds, Soft Rectal Exam: not examined Extremities: No cyanosis, Other Skin: No rashes Neuro: Normal tone, Sensation intact, Cranial nerves 3-12 NL, Other (slurring speech, stuttering hard,) Vitals Vitals Vital Signs Date Time Temp Pulse Resp B/P (MAP) Pulse Ox O2 Delivery O2 Flow Rate FiO2 04/10/20 07:00 98.3 79 18 125/59 (81) 98 Room Air 98.3 Labs Labs Laboratory Tests Test 04/09/20 15:54 04/09/20 16:50 04/10/20 07:32 White Blood Count 14.3 x10^3/uL (4.0-11.0) Red Blood Count 4.44 x10^6/uL (3.50-5.40) Hemoglobin 12.1 g/dL (12.0-15.5) Hematocrit 36.6 % (36.0-47.0) Mean Corpuscular Volume 82 fL (79-100) Mean Corpuscular Hemoglobin 27 pg (25-35) Mean Corpuscular Hemoglobin Concent 33 g/dL (31-37) Red Cell Distribution Width 16.6 % (11.5-14.5) Platelet Count 323 x10^3/uL (140-400) Neutrophils (%) (Auto) 89 % (31-73) Lymphocytes (%) (Auto) 8 % (24-48) Monocytes (%) (Auto) 3 % (0-9) Eosinophils (%) (Auto) 0 % (0-3) Basophils (%) (Auto) 0 % (0-3) Neutrophils # (Auto) 12.7 x10^3/uL (1.8-7.7) Lymphocytes # (Auto) 1.1 x10^3/uL (1.0-4.8) Monocytes # (Auto) 0.4 x10^3/uL (0.0-1.1) Eosinophils # (Auto) 0.0 x10^3/uL (0.0-0.7) Basophils # (Auto) 0.0 x10^3/uL (0.0-0.2) Segmented Neutrophils % 87 % (35-66) Lymphocytes % 9 % (24-48) Monocytes % 4 % (0-10) Platelet Estimate Adequate (ADEQUATE) Prothrombin Time 13.4 SEC (11.7-14.0) Prothromb Time International Ratio 1.1 (0.8-1.1) Activated Partial Thromboplast Time 26 SEC (24-38) Sodium Level 135 mmol/L (136-145) Potassium Level 5.0 mmol/L (3.5-5.1) Chloride Level 100 mmol/L (98-107) Carbon Dioxide Level 28 mmol/L (21-32) Anion Gap 7 (6-14) Blood Urea Nitrogen 29 mg/dL (7-20) Creatinine 1.3 mg/dL (0.6-1.0) Estimated GFR (Cockcroft-Gault) 47.1 BUN/Creatinine Ratio 22 (6-20) Glucose Level 177 mg/dL (70-99) Calcium Level 8.9 mg/dL (8.5-10.1) Magnesium Level 2.2 mg/dL (1.8-2.4) Total Bilirubin 0.5 mg/dL (0.2-1.0) Aspartate Amino Transf (AST/SGOT) 33 U/L (15-37) Alanine Aminotransferase (ALT/SGPT) 39 U/L (14-59) Alkaline Phosphatase 95 U/L (46-116) Ammonia < 10 mcmol/L (11-34) Troponin I Quantitative < 0.017 ng/mL (0.000-0.055) Total Protein 8.0 g/dL (6.4-8.2) Albumin 3.2 g/dL (3.4-5.0) Albumin/Globulin Ratio 0.7 (1.0-1.7) Urine Collection Type Unknown Urine Color Yellow Urine Clarity Clear Urine pH 6.5 (<5.0-8.0) Urine Specific [place] 1.025 (1.000-1.030) Urine Protein Negative mg/dL (NEG-TRACE) Urine Glucose (UA) Negative mg/dL (NEG) Urine Ketones (Stick) Negative mg/dL (NEG) Urine Blood Trace (NEG) Urine Nitrite Negative (NEG) Urine Bilirubin Negative (NEG) Urine Urobilinogen Dipstick 1.0 mg/dL (0.2 mg/dL) Urine Leukocyte Esterase Moderate (NEG) Urine RBC 3-5 /HPF (0-2) Urine WBC 5-10 /HPF (0-4) Urine Squamous Epithelial Cells Few /LPF Urine Amorphous Sediment Present /HPF Urine Bacteria Mod /HPF (0-FEW) Urine Hyaline Casts Few /HPF Urine Mucus Slight /LPF Glucose (Fingerstick) 74 mg/dL (70-99) Laboratory Tests Test 04/09/20 15:54 04/09/20 16:50 04/10/20 07:32 White Blood Count 14.3 x10^3/uL (4.0-11.0) Red Blood Count 4.44 x10^6/uL (3.50-5.40) Hemoglobin 12.1 g/dL (12.0-15.5) Hematocrit 36.6 % (36.0-47.0) Mean Corpuscular Volume 82 fL (79-100) Mean Corpuscular Hemoglobin 27 pg (25-35) Mean Corpuscular Hemoglobin Concent 33 g/dL (31-37) Red Cell Distribution Width 16.6 % (11.5-14.5) Platelet Count 323 x10^3/uL (140-400) Neutrophils (%) (Auto) 89 % (31-73) Lymphocytes (%) (Auto) 8 % (24-48) Monocytes (%) (Auto) 3 % (0-9) Eosinophils (%) (Auto) 0 % (0-3) Basophils (%) (Auto) 0 % (0-3) Neutrophils # (Auto) 12.7 x10^3/uL (1.8-7.7) Lymphocytes # (Auto) 1.1 x10^3/uL (1.0-4.8) Monocytes # (Auto) 0.4 x10^3/uL (0.0-1.1) Eosinophils # (Auto) 0.0 x10^3/uL (0.0-0.7) Basophils # (Auto) 0.0 x10^3/uL (0.0-0.2) Segmented Neutrophils % 87 % (35-66) Lymphocytes % 9 % (24-48) Monocytes % 4 % (0-10) Platelet Estimate Adequate (ADEQUATE) Prothrombin Time 13.4 SEC (11.7-14.0) Prothromb Time International Ratio 1.1 (0.8-1.1) Activated Partial Thromboplast Time 26 SEC (24-38) Sodium Level 135 mmol/L (136-145) Potassium Level 5.0 mmol/L (3.5-5.1) Chloride Level 100 mmol/L (98-107) Carbon Dioxide Level 28 mmol/L (21-32) Anion Gap 7 (6-14) Blood Urea Nitrogen 29 mg/dL (7-20) Creatinine 1.3 mg/dL (0.6-1.0) Estimated GFR (Cockcroft-Gault) 47.1 BUN/Creatinine Ratio 22 (6-20) Glucose Level 177 mg/dL (70-99) Calcium Level 8.9 mg/dL (8.5-10.1) Magnesium Level 2.2 mg/dL (1.8-2.4) Total Bilirubin 0.5 mg/dL (0.2-1.0) Aspartate Amino Transf (AST/SGOT) 33 U/L (15-37) Alanine Aminotransferase (ALT/SGPT) 39 U/L (14-59) Alkaline Phosphatase 95 U/L (46-116) Ammonia < 10 mcmol/L (11-34) Troponin I Quantitative < 0.017 ng/mL (0.000-0.055) Total Protein 8.0 g/dL (6.4-8.2) Albumin 3.2 g/dL (3.4-5.0) Albumin/Globulin Ratio 0.7 (1.0-1.7) Urine Collection Type Unknown Urine Color Yellow Urine Clarity Clear Urine pH 6.5 (<5.0-8.0) Urine Specific [place] 1.025 (1.000-1.030) Urine Protein Negative mg/dL (NEG-TRACE) Urine Glucose (UA) Negative mg/dL (NEG) Urine Ketones (Stick) Negative mg/dL (NEG) Urine Blood Trace (NEG) Urine Nitrite Negative (NEG) Urine Bilirubin Negative (NEG) Urine Urobilinogen Dipstick 1.0 mg/dL (0.2 mg/dL) Urine Leukocyte Esterase Moderate (NEG) Urine RBC 3-5 /HPF (0-2) Urine WBC 5-10 /HPF (0-4) Urine Squamous Epithelial Cells Few /LPF Urine Amorphous Sediment Present /HPF Urine Bacteria Mod /HPF (0-FEW) Urine Hyaline Casts Few /HPF Urine Mucus Slight /LPF Glucose (Fingerstick) 74 mg/dL (70-99) VTE Prophylaxis Ordered VTE Prophylaxis Devices: Yes VTE Pharmacological Prophylaxi: Yes Assessment/Plan Assessment/Plan ACUTE encephalopathy, new left infarct, acute stroke with CVA symptoms, also other CVA recent, with diploplia, UTI, sepsis, will dose rocephin weakness and debility has been at rehab for similar, will restart modalities, she is optimistic on improvement mild malnutrition, CKD 3 Justicifation of Admission Dx: Justifications for Admission: Justification of Admission Dx: Yes ALVARO FABIAN MD Apr 10, 2020 11:07
[2020-04-10] MEDS: DICLOFENAC SODIUM 1% TOPICAL GEL 100GM TUBE. TP SCH ×2 (12:00→21:00)
[2020-04-10] MEDS ORDERED: ASPIRIN ENTERIC COATED 81 MG TABLET.DR. PO SCH (12:00)
[2020-04-10] MEDS: ACETAMINOPHEN 325 MG TABLET. PO SCH ×2 (13:04→17:59)
[2020-04-10] MEDS: predniSONE 10 MG TABLET PO SCH (13:04)
[2020-04-10] MEDS: amLODIPine BESYLATE 5 MG TABLET PO SCH (13:05)
[2020-04-10] MEDS: cefTRIAXone IV Push 1 GM VIAL. IVP SCH (13:05)
[2020-04-10] MEDS: hydrALAZINE 25 MG TABLET PO SCH ×2 (13:05→18:00)
--- NOTE | 2020-04-10 13:13 | PDOC2 ---
NEUROLOGY CONSULT Date of Service DOS: DATE: 04/10/20 TIME: 13:05 Reason for Consult Reason for Consult: Stroke symptoms Referring Physician Referring Physician: Dr. Hood Source Source: Chart review, Patient History of Present Illness History of Present Illness The patient is an 84-year-old right-handed female who noticed difficulty speaking at 11 AM yesterday morning. For the last few weeks she has been wearing a patch on her left eye because of double vision. She denies headache, dysphagia, dysarthria, or prior history of stroke. Past Medical History Cardiovascular: HTN CENTRAL NERVOUS SYSTEM: CVA ( listed in nursing history, patient does not know of any prior strokes), Dementia GI: GERD ( him) Musculoskeletal: Osteoarthritis ENT: Other ( glaucoma) Renal/: UTI, Urinary Incontinence Endocrine: Diabetes Dermatology: Psoriasis Past Surgical History Past Surgical History: Cataract Removal, Other ( bilateral rotator cuff) Family History Family History: Hypertension, Other ( sickle cell trait) Social History Social History , lives alone, no alcohol or tobacco Current Medications Current Medications Current Medications Iohexol (Omnipaque 300 Mg/ml) 60 ml 1X ONCE IV Last administered on 04/09/20at 16:17; Start 04/09/20 at 16:00; Stop 04/09/20 at 16:01; Status DC Info (CONTRAST GIVEN -- Rx MONITORING) 1 each PRN DAILY PRN MC SEE COMMENTS; Start 04/09/20 at 16:15; Stop 04/11/20 at 16:14 Hydralazine HCl (Apresoline Inj) 5 mg PRN Q4HRS PRN IVP ELEVATED BP, SEE COMMENTS Last administered on 04/10/20at 03:37; Start 04/10/20 at 00:15 Aspirin (Aspirin Rectal Supp) 300 mg DAILY SD Last administered on 04/10/20at 08:42; Start 04/10/20 at 09:00 Acetaminophen (Tylenol) 650 mg PRN Q6HRS PRN PO TEMP > 100.4F; Start 04/10/20 at 08:45 Acetaminophen (Tylenol Supp) 650 mg PRN Q4HRS PRN SD TEMP > 100.4F; Start 04/10/20 at 08:45 Aspirin (Ecotrin) 325 mg DAILYWBKFT PO ; Start 04/10/20 at 09:00 Aspirin (Aspirin Rectal Supp) 300 mg PRN DAILY PRN SD IF UNABLE TO TAKE PO; Start 04/10/20 at 08:45 Ceftriaxone Sodium (Rocephin) 1 gm Q24H IVP ; Start 04/10/20 at 12:00 Acetaminophen (Tylenol) 650 mg Q6HRS PO ; Start 04/10/20 at 12:00 Amlodipine Besylate (Norvasc) 5 mg DAILY PO ; Start 04/10/20 at 12:00 Aspirin (Ecotrin) 81 mg DAILY PO ; Start 04/10/20 at 12:00; Stop 04/10/20 at 10:57; Status DC Atorvastatin Calcium (Lipitor) 40 mg HS PO ; Start 04/10/20 at 21:00 Diclofenac Sodium (Voltaren) 1 genevieve BID TP ; Start 04/10/20 at 12:00 Hydralazine HCl (Apresoline) 25 mg Q6HRS PO ; Start 04/10/20 at 12:00 Prednisone (Prednisone) 10 mg DAILYWBKFT PO ; Start 04/10/20 at 12:00 Tramadol HCl (Ultram) 50 mg PRN Q6HRS PRN PO MILD PAIN 1-3; Start 04/10/20 at 11:00 Active Scripts Active Prednisone (Prednisone) 10 Mg Tablet 10 Mg PO DAILY 14 Days Voltaren (Diclofenac Sodium) 100 Gm Gel..gram. 1 Genevieve TP BID 30 Days Norvasc (Amlodipine Besylate) 5 Mg Tablet 5 Mg PO DAILY Reported Lipitor (Atorvastatin Calcium) 40 Mg Tablet 40 Mg PO HS Aspirin Ec (Aspirin) 81 Mg Tablet.dr 81 Mg PO DAILY Hydralazine Hcl 25 Mg Tablet 25 Mg PO Q6HRS Q6hrs as needed for SBP >160 Tylenol (Acetaminophen) 325 Mg Tablet 650 Mg PO Q6HRS Tramadol Hcl 50 Mg Tablet 50 Mg PO Q6HRS PRN Allergies Allergies: Coded Allergies: Penicillins (Verified Allergy, Unknown, 04/09/20) ROS Review of System Negative for fever, chills, weight loss, shortness of breath, chest pain, indigestion, hematochezia, melena, and dysuria. Full 14-point review of systems is negative. Physical Exam Physical Examination General: Well-developed, well-nourished black female in no acute distress HEENT: Normocephalic andatraumatic. Tympanic membranes clear.Temporal arteriespulsatile and nontender.Fundoscopic exam unremarkable Neck: Supple without bruit, no meningismus Musculoskeletal: Stability:see neurologic. Gait exam:see neurologic. Tone:see neurologic.Strength:see neurologic. Neurological: Mental Status:orientation, memory, attention span/concentration, language, fund of knowledge: she knows location, not date, speech is stuttering. Cranial Nerves:Pupils equal and reactive to light, isual wheeler are full to confrontation. She has a patch on the left eye, there is a left lateral rectus palsy. Facial sensation is normal. There is no facial asymmetry. Vestibulo- ocular reflex is intact. Palate elevates and tongue protrudes in midline. All other cranial related problems are negative except as mentioned before.Reflexes:1+ and symmetric with flexor plantar responses. Motor:4/5 strength with normal tone and bulk. Coordination:Finger-nose finger and heel-t o-curry testing are normal. Rapid alternating movements and fine finger movements are intact. Gait: not tested. Sensory:Normal pinprick, vibration, light touch, proprioception. Vitals VITALS Vital Signs Date Time Temp Pulse Resp B/P (MAP) Pulse Ox O2 Delivery O2 Flow Rate FiO2 04/10/20 11:00 97.9 75 18 123/65 (84) 98 Room Air 97.9 Labs Labs Laboratory Tests Test 04/09/20 15:54 04/09/20 16:50 04/10/20 07:32 04/10/20 11:32 White Blood Count 14.3 x10^3/uL (4.0-11.0) Red Blood Count 4.44 x10^6/uL (3.50-5.40) Hemoglobin 12.1 g/dL (12.0-15.5) Hematocrit 36.6 % (36.0-47.0) Mean Corpuscular Volume 82 fL (79-100) Mean Corpuscular Hemoglobin 27 pg (25-35) Mean Corpuscular Hemoglobin Concent 33 g/dL (31-37) Red Cell Distribution Width 16.6 % (11.5-14.5) Platelet Count 323 x10^3/uL (140-400) Neutrophils (%) (Auto) 89 % (31-73) Lymphocytes (%) (Auto) 8 % (24-48) Monocytes (%) (Auto) 3 % (0-9) Eosinophils (%) (Auto) 0 % (0-3) Basophils (%) (Auto) 0 % (0-3) Neutrophils # (Auto) 12.7 x10^3/uL (1.8-7.7) Lymphocytes # (Auto) 1.1 x10^3/uL (1.0-4.8) Monocytes # (Auto) 0.4 x10^3/uL (0.0-1.1) Eosinophils # (Auto) 0.0 x10^3/uL (0.0-0.7) Basophils # (Auto) 0.0 x10^3/uL (0.0-0.2) Segmented Neutrophils % 87 % (35-66) Lymphocytes % 9 % (24-48) Monocytes % 4 % (0-10) Platelet Estimate Adequate (ADEQUATE) Prothrombin Time 13.4 SEC (11.7-14.0) Prothromb Time International Ratio 1.1 (0.8-1.1) Activated Partial Thromboplast Time 26 SEC (24-38) Sodium Level 135 mmol/L (136-145) Potassium Level 5.0 mmol/L (3.5-5.1) Chloride Level 100 mmol/L (98-107) Carbon Dioxide Level 28 mmol/L (21-32) Anion Gap 7 (6-14) Blood Urea Nitrogen 29 mg/dL (7-20) Creatinine 1.3 mg/dL (0.6-1.0) Estimated GFR (Cockcroft-Gault) 47.1 BUN/Creatinine Ratio 22 (6-20) Glucose Level 177 mg/dL (70-99) Calcium Level 8.9 mg/dL (8.5-10.1) Magnesium Level 2.2 mg/dL (1.8-2.4) Total Bilirubin 0.5 mg/dL (0.2-1.0) Aspartate Amino Transf (AST/SGOT) 33 U/L (15-37) Alanine Aminotransferase (ALT/SGPT) 39 U/L (14-59) Alkaline Phosphatase 95 U/L (46-116) Ammonia < 10 mcmol/L (11-34) Troponin I Quantitative < 0.017 ng/mL (0.000-0.055) Total Protein 8.0 g/dL (6.4-8.2) Albumin 3.2 g/dL (3.4-5.0) Albumin/Globulin Ratio 0.7 (1.0-1.7) Urine Collection Type Unknown Urine Color Yellow Urine Clarity Clear Urine pH 6.5 (<5.0-8.0) Urine Specific [place] 1.025 (1.000-1.030) Urine Protein Negative mg/dL (NEG-TRACE) Urine Glucose (UA) Negative mg/dL (NEG) Urine Ketones (Stick) Negative mg/dL (NEG) Urine Blood Trace (NEG) Urine Nitrite Negative (NEG) Urine Bilirubin Negative (NEG) Urine Urobilinogen Dipstick 1.0 mg/dL (0.2 mg/dL) Urine Leukocyte Esterase Moderate (NEG) Urine RBC 3-5 /HPF (0-2) Urine WBC 5-10 /HPF (0-4) Urine Squamous Epithelial Cells Few /LPF Urine Amorphous Sediment Present /HPF Urine Bacteria Mod /HPF (0-FEW) Urine Hyaline Casts Few /HPF Urine Mucus Slight /LPF Glucose (Fingerstick) 74 mg/dL (70-99) 88 mg/dL (70-99) Laboratory Tests Test 04/09/20 15:54 04/09/20 16:50 04/10/20 07:32 04/10/20 11:32 White Blood Count 14.3 x10^3/uL (4.0-11.0) Red Blood Count 4.44 x10^6/uL (3.50-5.40) Hemoglobin 12.1 g/dL (12.0-15.5) Hematocrit 36.6 % (36.0-47.0) Mean Corpuscular Volume 82 fL (79-100) Mean Corpuscular Hemoglobin 27 pg (25-35) Mean Corpuscular Hemoglobin Concent 33 g/dL (31-37) Red Cell Distribution Width 16.6 % (11.5-14.5) Platelet Count 323 x10^3/uL (140-400) Neutrophils (%) (Auto) 89 % (31-73) Lymphocytes (%) (Auto) 8 % (24-48) Monocytes (%) (Auto) 3 % (0-9) Eosinophils (%) (Auto) 0 % (0-3) Basophils (%) (Auto) 0 % (0-3) Neutrophils # (Auto) 12.7 x10^3/uL (1.8-7.7) Lymphocytes # (Auto) 1.1 x10^3/uL (1.0-4.8) Monocytes # (Auto) 0.4 x10^3/uL (0.0-1.1) Eosinophils # (Auto) 0.0 x10^3/uL (0.0-0.7) Basophils # (Auto) 0.0 x10^3/uL (0.0-0.2) Segmented Neutrophils % 87 % (35-66) Lymphocytes % 9 % (24-48) Monocytes % 4 % (0-10) Platelet Estimate Adequate (ADEQUATE) Prothrombin Time 13.4 SEC (11.7-14.0) Prothromb Time International Ratio 1.1 (0.8-1.1) Activated Partial Thromboplast Time 26 SEC (24-38) Sodium Level 135 mmol/L (136-145) Potassium Level 5.0 mmol/L (3.5-5.1) Chloride Level 100 mmol/L (98-107) Carbon Dioxide Level 28 mmol/L (21-32) Anion Gap 7 (6-14) Blood Urea Nitrogen 29 mg/dL (7-20) Creatinine 1.3 mg/dL (0.6-1.0) Estimated GFR (Cockcroft-Gault) 47.1 BUN/Creatinine Ratio 22 (6-20) Glucose Level 177 mg/dL (70-99) Calcium Level 8.9 mg/dL (8.5-10.1) Magnesium Level 2.2 mg/dL (1.8-2.4) Total Bilirubin 0.5 mg/dL (0.2-1.0) Aspartate Amino Transf (AST/SGOT) 33 U/L (15-37) Alanine Aminotransferase (ALT/SGPT) 39 U/L (14-59) Alkaline Phosphatase 95 U/L (46-116) Ammonia < 10 mcmol/L (11-34) Troponin I Quantitative < 0.017 ng/mL (0.000-0.055) Total Protein 8.0 g/dL (6.4-8.2) Albumin 3.2 g/dL (3.4-5.0) Albumin/Globulin Ratio 0.7 (1.0-1.7) Urine Collection Type Unknown Urine Color Yellow Urine Clarity Clear Urine pH 6.5 (<5.0-8.0) Urine Specific [place] 1.025 (1.000-1.030) Urine Protein Negative mg/dL (NEG-TRACE) Urine Glucose (UA) Negative mg/dL (NEG) Urine Ketones (Stick) Negative mg/dL (NEG) Urine Blood Trace (NEG) Urine Nitrite Negative (NEG) Urine Bilirubin Negative (NEG) Urine Urobilinogen Dipstick 1.0 mg/dL (0.2 mg/dL) Urine Leukocyte Esterase Moderate (NEG) Urine RBC 3-5 /HPF (0-2) Urine WBC 5-10 /HPF (0-4) Urine Squamous Epithelial Cells Few /LPF Urine Amorphous Sediment Present /HPF Urine Bacteria Mod /HPF (0-FEW) Urine Hyaline Casts Few /HPF Urine Mucus Slight /LPF Glucose (Fingerstick) 74 mg/dL (70-99) 88 mg/dL (70-99) Images Images MRI Brain with and without IV contrast INDICATION: Reason: CVA, aphasia, left palsy, CALL REPORT TO [facility] AT [phone] / Spl. Instructions: / History: . TECHNIQUE: Sagittal and axial T1-w and axial T2-w, FLAIR, GRE, coronal T2-w, and diffusion-w images of the brain with ADC maps without contrast followed by post contrast axial and sagittal T1-w and coronal T1-fatsat sequences. IV CONTRAST: Administered COMPARISON: Noncontrast head CT of 04/09/2020. FINDINGS: BRAIN PARENCHYMA: Restricted diffusion is present in the left deep carrington nuclei near the lateral left thalamus. No acute hemorrhage is demonstrated. No mass effect noted. There is extensive white matter T2 and FLAIR signal hyperintensity compatible with chronic ischemic microvascular change and gliosis from prior lacunar infarcts. Tiny foci of susceptibility along the posterior frontal gyri are compatible with petechial hemorrhages or changes of laminar necrosis from previous infarction.. VENTRICLES & EXTRA-AXIAL SPACES: Ventricles are enlarged in proportion to the degree of parenchymal volume loss present. Basilar cisterns are patent. No abnormal extra-axial fluid or mass. No abnormal enhancement. VESSELS: Normal signal voids in the larger intracranial vessels. ORBITS: Orbital contents are unremarkable. SINUSES: Paranasal sinuses are clear. Tympanic cavities and mastoid air cells are clear. OSSEOUS & SOFT TISSUES: Marrow signal is within normal limits. IMPRESSION: Small acute infarct in the left basal ganglia without hemorrhagic transformation or mass effect. CT Head without IV contrast INDICATION: Reason: Slurred speech. STROKE WAS CALLED AT 15:50PM OVERPAGED, CT READY AT 15:50 / Spl. Instructions: ED ROOM 4 Dr. Llamas [phone] / History: TECHNIQUE: Multi-detector row CT images were obtained of the head without the use of IV contrast. All CT scans performed at this facility utilize dose optimization techniques as appropriate to the exam, including the following: Automated exposure control and adjustment of the mA and/or KV according to patient size (this includes techniques or standardized protocols for targeted exams where dose is indication/reason for exam). COMPARISON: None FINDINGS: BRAIN PARENCHYMA: No evidence of acute intraparenchymal hemorrhage or infarct. Is generalized parenchymal volume loss and white matter low density compatible chronic ischemic microvascular change. This is best appreciated in the bilateral frontal lobes. VENTRICLES & EXTRA-AXIAL SPACES: Ventricles are within normal limits. Basilar cisterns are patent. No pathologic extra-axial fluid collection or mass. ORBITS: Orbital contents are unremarkable. SINUSES: Visualized paranasal sinuses and mastoid air cells are clear. OSSEOUS & SOFT TISSUES: Calvarium and skull base are intact. IMPRESSION: No acute intracranial pathology. CTA HEAD/NECK - CODE STROKE EXAM: CT Angiogram of the Head and Neck INDICATION: Reason: Slurred speech. STROKE WAS CALLED AT 15:50PM OVERPAGED, CT READY AT 15:50 / Spl. Instructions: IV OMNI 300 60 MLS / History: TECHNIQUE: CT images were obtained through the head per standard CTA protocol. Multiplanar and 3D reformatted images were generated from the CT dataset on an independent workstation. All CT scans performed at this facility utilize dose optimization techniques as appropriate to the exam, including the following: Automated exposure control and adjustment of the mA and/or KV according to patient size (this includes techniques or standardized protocols for targeted exams where dose is indication/reason for exam). IV CONTRAST: Administered COMPARISON: Noncontrast head CT obtained the same day. FINDINGS: CTA HEAD: No high-grade large vessel stenosis, proximal or branch vessel occlusion, large aneurysm, or vascular malformation. ANTERIOR CIRCULATION: Anterior and middle cerebral arteries are widely patent. ANTERIOR COMMUNICATING ARTERY: Diminutive, likely present. POSTERIOR COMMUNICATING ARTERIES: Present bilaterally and patent. POSTERIOR CIRCULATION: Vertebral arteries and basilar artery are patent. 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 The right vertebral artery is dominant. The left superior cerebellar artery is well seen. Bilateral AICA PICA are diminutive but present and patent. OTHER: No abnormal brain parenchymal enhancement. The paranasal sinuses, mastoid air cells, and tympanic cavities show bilateral mastoid effusions but otherwise are well aerated.. Partially empty sella with remodeling of the floor of the sella. NECK CTA: AORTA: 3 vessel configuration of arch. No dissection or acute aortic injury. No hemodynamically significant great vessel origin stenosis. RIGHT CAROTID: Common and internal carotid arteries are patent, without evidence of flow limiting stenosis or dissection. Calcified plaque is present in the distal right common carotid artery and in the proximal right cervical internal carotid artery. This results in less than 50 percent stenosis. LEFT CAROTID: Common and internal carotid arteries are patent, without evidence of flow limiting stenosis or dissection. Calcified and noncalcified plaque is present at the left distal common carotid artery and the proximal left internal carotid artery. This is the result in significant stenosis. VERTEBRAL ARTERIES: Right dominant. No evidence of dissection or flow limiting stenosis. SUBCLAVIAN ARTERIES:Subclavian arteries are patent without stenosis. SOFT TISSUES: Soft tissues are unremarkable. Lung apices are clear. C-spine degenerative changes are present. No acute or aggressive appearing osseous lesions Where applicable, evaluation of ICA stenosis was performed using NASCET criteria, where the site of greatest stenosis is compared to the diameter of the ICA distal to the carotid bulb. IMPRESSION: 1. 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 No evidence of a large vessel occlusion, hemodynamically significant stenosis, vascular malformation or large aneurysm. 2. CTA of the neck shows a less than 50 percent stenosis in the proximal right cervical ICA. No evidence of dissection, high-grade stenosis or occlusion. Assessment/Plan Assessment/Plan Impression: Left basal ganglia lacunar infarct, negative CT Angiogram. 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 LILLI GRAF MD Apr 10, 2020 13:13
--- NOTE | 2020-04-10 14:47 | NUR ---
SS following for discharge planning. SS reviewed pt chart and discussed with pt RN. Pt is from [facility], ; fax [phone]. Pt is skilled rehabilitation resident. Pt is currently on room air. PT/OT ordered. Pt had Brain MRI. ECHO ordered. SS will continue to follow for discharge planning.
[2020-04-10 15:00] VITALS: BP 114/56
[2020-04-10 19:00] VITALS: BP 113/63
[2020-04-10] MEDS: ATORVASTATIN CALCIUM 40 MG TABLET. PO SCH (21:01)
[2020-04-10 23:15] VITALS: BP 131/66
[2020-04-11] MEDS: ACETAMINOPHEN 325 MG TABLET. PO SCH ×4 (00:26→18:07)
[2020-04-11] MEDS: hydrALAZINE 25 MG TABLET PO SCH ×5 (00:26→20:49)
[2020-04-11 03:50] VITALS: BP 159/68
[2020-04-11 06:20] LABS: CHOLESTEROL/HDL RATIO 1.8
[2020-04-11 07:00] VITALS: BP 132/60
[2020-04-11] MEDS: predniSONE 10 MG TABLET PO SCH (08:17)
[2020-04-11] MEDS: ASPIRIN ENTERIC COATED 325 MG TABLET.DR. PO SCH (08:17)
[2020-04-11] MEDS: amLODIPine BESYLATE 5 MG TABLET PO SCH (08:17)
[2020-04-11] MEDS: ASPIRIN RECTAL 300 MG SUPP. PR SCH (08:17)
--- NOTE | 2020-04-11 08:30 | PDOC ---
[employer] PROGRESS NOTE Date of Service DOS: DATE: 04/11/20 TIME: 08:25 Chief Complaint Chief Complaint ACUTE encephalopathy, new left infarct, acute stroke with CVA symptoms, also other CVA recent, with diploplia, UTI, sepsis, weakness and debility History of Present Illness History of Present Illness 04/11/2020 Patient seen and examined Patient is resting comfortably Discussed with daughter via phone Discussed with RN Reviewed charts Vitals/I&O Vitals/I&O: Vital Signs Date Time Temp Pulse Resp B/P (MAP) Pulse Ox O2 Delivery O2 Flow Rate FiO2 04/11/20 08:17 72 132/60 04/11/20 07:00 98.0 16 98 Room Air 98.0 I & O 04/10/20 04/10/20 04/11/20 15:00 23:00 07:00 Intake Total 100 ml Balance 100 ml Physical Exam General: Alert, Cooperative, No acute distress, Other (trouble talking speaking double, ) Lungs: Clear, Crackles Abdomen: Normal bowel sounds, Soft Extremities: No cyanosis, Other Skin: No rashes Labs Labs: Laboratory Tests Test 04/10/20 11:32 04/10/20 16:32 04/10/20 21:02 04/11/20 04:35 Glucose (Fingerstick) 88 mg/dL (70-99) 167 mg/dL (70-99) 160 mg/dL (70-99) Triglycerides Level 30 mg/dL (0-150) Cholesterol Level 141 mg/dL (0-200) LDL Cholesterol, Calculated 57 mg/dL (0-100) VLDL Cholesterol, Calculated 6 mg/dL (0-40) Non-HDL Cholesterol Calculated 63 mg/dL (0-129) HDL Cholesterol 78 mg/dL (40-60) Cholesterol/HDL Ratio 1.8 Test 04/11/20 07:02 Glucose (Fingerstick) 88 mg/dL (70-99) Assessment and Plan Assessmemt and Plan Problems Medical Problems: (1) Aphasia Status: Acute Assessment ACUTE encephalopathy, new left infarct, acute stroke with CVA symptoms, also other CVA recent, with diploplia, UTI, sepsis, weakness and debility Plan Cardiology monitor Neuro checks Home meds PT/OT DVT prophylaxis Trend labs Comment Review of Relevant I have reviewed the following items janine (where applicable) has been applied. Medications: Current Medications Medications (Trade) Dose Ordered Sig/Marilu Route PRN Reason Start Time Stop Time Status Last Admin Dose Admin Aspirin (Aspirin Rectal Supp) 300 mg DAILY CA 04/10/20 09:00 04/10/20 08:42 Aspirin (Ecotrin) 325 mg DAILYWBKFT PO 04/10/20 09:00 04/11/20 08:17 Ceftriaxone Sodium (Rocephin) 1 gm Q24H IVP 04/10/20 12:00 04/10/20 13:05 Acetaminophen (Tylenol) 650 mg Q6HRS PO 04/10/20 12:00 04/11/20 06:22 Amlodipine Besylate (Norvasc) 5 mg DAILY PO 04/10/20 12:00 04/11/20 08:17 Atorvastatin Calcium (Lipitor) 40 mg HS PO 04/10/20 21:00 04/10/20 21:01 Hydralazine HCl (Apresoline) 25 mg Q6HRS PO 04/10/20 12:00 04/11/20 06:22 Prednisone (Prednisone) 10 mg DAILYWBKFT PO 04/10/20 12:00 04/11/20 08:17 Justicifation of Admission Dx: Justifications for Admission: Justification of Admission Dx: Yes CATHLEEN SHUKLA III DO Apr 11, 2020 08:30
--- NOTE | 2020-04-11 09:36 | NUR ---
SW following. Discussed with RN, pt from [facility], does not need PT/OT or COVID test to return. Pt on dysphagia diet. Potential discharge back to [facility] today. MONIK will continue to follow. Addendum: 04/11/20 at 1540 by WALDO RUGGIERO [facility] does not have staffing available this evening to take patient back. Plan for return to [facility] tomorrow (04/12/2020). RN and physician notified.
[2020-04-11 11:06] VITALS: BP 130/55
[2020-04-11] MEDS: DICLOFENAC SODIUM 1% TOPICAL GEL 100GM TUBE. TP SCH ×2 (11:14→20:49)
[2020-04-11] MEDS: cefTRIAXone IV Push 1 GM VIAL. IVP SCH (11:18)
--- NOTE | 2020-04-11 11:22 | CARD ---
MR#: [id number] Date of Study: 04/11/2020 Ordering Physician: LILLI GRAF, Referring Physician: LILLI GRAF, Tech: Cheryl Larsen RDCS APPROVED REPORT EXAM: Two-dimensional and M-mode echocardiogram with Doppler and color Doppler. Other Information Quality : Good INDICATION CVA/TIA 2D DIMENSIONS RVDd2.7 (2.9-3.5cm)Left Atrium(2D)2.5 (1.6-4.0cm) IVSd1.0 (0.7-1.1cm)Aortic Root(2D)2.6 (2.0-3.7cm) LVDd3.2 (3.9-5.9cm)LVOT Diameter1.9 (1.8-2.4cm) PWd1.0 (0.7-1.1cm)LVDs2.4 (2.5-4.0cm) FS (%) 30.0 %SV20.7 ml LVEF(%)60.0 (>50%) Aortic Valve AoV Peak Jaden.169.3cm/sAoV VTI31.3cm AO Peak GR.11.5mmHgLVOT Peak Jaden.113.8cm/s AO Mean GR.8mmHgAVA (VMAX)1.83cm2 MACI (VTI)2.21cr8CI P 1/2 [id number] Mitral Valve MV E Zdqcvqso28.1cm/sMV DECEL [id number] MV A Ugwcmzqr04.5cm/sE/A Ratio0.4 Tricuspid Valve TR P. Sryvfqxb792ns/sRAP [id number] TR Peak Gr.98rpReMQRZ65toGs Pulmonary Vein S1 Fhspxviu55.7cm/sD2 Nuqilint49.0cm/s LEFT VENTRICLE The left ventricle is normal size. There is normal left ventricular wall thickness. Left ventricle sy stolic function is normal. The Ejection Fraction is 60-65%. There is normal LV segmental wall motion. Transmitral Doppler flow pattern is Grade I-abnormal relaxation pattern. RIGHT VENTRICLE The right ventricle is normal size. The right ventricular systolic function is normal. ATRIA The left atrium size is normal. The right atrium size is normal. The interatrial septum is intact wit h no evidence for an atrial septal defect or patent foramen ovale as noted on 2-D or Doppler imaging. AORTIC VALVE The aortic valve is moderately thickened but opens well. Doppler and Color Flow revealed mild to mode rate aortic regurgitation. There is no significant aortic valvular stenosis. MITRAL VALVE The mitral valve is calcified but opens well. There is no evidence of mitral valve prolapse. There is no mitral valve stenosis. Doppler and Color-flow revealed mild mitral regurgitation. TRICUSPID VALVE The tricuspid valve is normal in structure and function. Doppler and Color Flow revealed mild tricusp id regurgitation. The PA pressure was estimated at 26 mmHg. There is no tricuspid valve stenosis. PULMONIC VALVE The pulmonary valve is normal in structure and function. Doppler and Color Flow revealed mild pulmoni c valvular regurgitation. There is no pulmonic valvular stenosis. GREAT VESSELS The aortic root is normal in size. The ascending aorta is normal in size. The IVC was not visualized. PERICARDIAL EFFUSION There is no evidence of significant pericardial effusion. Critical Notification Critical Value: No <Conclusion> Left ventricle systolic function is normal. The Ejection Fraction is 60-65%. There is normal LV segmental wall motion. Doppler and Color Flow revealed mild to moderate aortic regurgitation. Signed by : Charles Bella, Electronically Approved : 04/11/2020 11:21:57
--- NOTE | 2020-04-11 11:59 | PDOC ---
PROGRESS NOTES Assessment Problems Medical Problems: (1) Aphasia Status: Acute Left basal ganglia lacunar infarct, negative CT Angiogram. 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 Plan Aspirin Speech therapy, physical and occupational therapy Already in [facility], simply transfer back there, okay to discharge today Objective Vital Signs Date Time Temp Pulse Resp B/P (MAP) Pulse Ox O2 Delivery O2 Flow Rate FiO2 04/11/20 11:06 98.2 81 18 130/55 (80) 99 Room Air 98.2 Intake and Output 04/11/20 07:00 Intake Total 100 ml Balance 100 ml Intake Oral 100 ml # Voids 1 # Bowel Movements 1 PHYSICAL EXAM Alert. knows location, not date, speech is stuttering, improved from yesterday PERRL. Left lateral rectus palsy CN: no focal findings. Muscle tone: normal. Muscle strength: 4/5 DTR: 1+ Plantar reflex: flexor Gait: not examined in bed. Sensory exam: no abnormal findings. No cerebellar signs elicited. Review of Relevant I have reviewed the following items janine (where applicable) has been applied. Labs Laboratory Tests Test 04/09/20 15:54 04/09/20 16:50 04/10/20 07:32 04/10/20 11:32 White Blood Count 14.3 x10^3/uL (4.0-11.0) Red Blood Count 4.44 x10^6/uL (3.50-5.40) Hemoglobin 12.1 g/dL (12.0-15.5) Hematocrit 36.6 % (36.0-47.0) Mean Corpuscular Volume 82 fL (79-100) Mean Corpuscular Hemoglobin 27 pg (25-35) Mean Corpuscular Hemoglobin Concent 33 g/dL (31-37) Red Cell Distribution Width 16.6 % (11.5-14.5) Platelet Count 323 x10^3/uL (140-400) Neutrophils (%) (Auto) 89 % (31-73) Lymphocytes (%) (Auto) 8 % (24-48) Monocytes (%) (Auto) 3 % (0-9) Eosinophils (%) (Auto) 0 % (0-3) Basophils (%) (Auto) 0 % (0-3) Neutrophils # (Auto) 12.7 x10^3/uL (1.8-7.7) Lymphocytes # (Auto) 1.1 x10^3/uL (1.0-4.8) Monocytes # (Auto) 0.4 x10^3/uL (0.0-1.1) Eosinophils # (Auto) 0.0 x10^3/uL (0.0-0.7) Basophils # (Auto) 0.0 x10^3/uL (0.0-0.2) Segmented Neutrophils % 87 % (35-66) Lymphocytes % 9 % (24-48) Monocytes % 4 % (0-10) Platelet Estimate Adequate (ADEQUATE) Prothrombin Time 13.4 SEC (11.7-14.0) Prothromb Time International Ratio 1.1 (0.8-1.1) Activated Partial Thromboplast Time 26 SEC (24-38) Sodium Level 135 mmol/L (136-145) Potassium Level 5.0 mmol/L (3.5-5.1) Chloride Level 100 mmol/L (98-107) Carbon Dioxide Level 28 mmol/L (21-32) Anion Gap 7 (6-14) Blood Urea Nitrogen 29 mg/dL (7-20) Creatinine 1.3 mg/dL (0.6-1.0) Estimated GFR (Cockcroft-Gault) 47.1 BUN/Creatinine Ratio 22 (6-20) Glucose Level 177 mg/dL (70-99) Calcium Level 8.9 mg/dL (8.5-10.1) Magnesium Level 2.2 mg/dL (1.8-2.4) Total Bilirubin 0.5 mg/dL (0.2-1.0) Aspartate Amino Transf (AST/SGOT) 33 U/L (15-37) Alanine Aminotransferase (ALT/SGPT) 39 U/L (14-59) Alkaline Phosphatase 95 U/L (46-116) Ammonia < 10 mcmol/L (11-34) Troponin I Quantitative < 0.017 ng/mL (0.000-0.055) Total Protein 8.0 g/dL (6.4-8.2) Albumin 3.2 g/dL (3.4-5.0) Albumin/Globulin Ratio 0.7 (1.0-1.7) Urine Collection Type Unknown Urine Color Yellow Urine Clarity Clear Urine pH 6.5 (<5.0-8.0) Urine Specific Edmond 1.025 (1.000-1.030) Urine Protein Negative mg/dL (NEG-TRACE) Urine Glucose (UA) Negative mg/dL (NEG) Urine Ketones (Stick) Negative mg/dL (NEG) Urine Blood Trace (NEG) Urine Nitrite Negative (NEG) Urine Bilirubin Negative (NEG) Urine Urobilinogen Dipstick 1.0 mg/dL (0.2 mg/dL) Urine Leukocyte Esterase Moderate (NEG) Urine RBC 3-5 /HPF (0-2) Urine WBC 5-10 /HPF (0-4) Urine Squamous Epithelial Cells Few /LPF Urine Amorphous Sediment Present /HPF Urine Bacteria Mod /HPF (0-FEW) Urine Hyaline Casts Few /HPF Urine Mucus Slight /LPF Glucose (Fingerstick) 74 mg/dL (70-99) 88 mg/dL (70-99) Test 04/10/20 16:32 04/10/20 21:02 04/11/20 04:35 04/11/20 07:02 Glucose (Fingerstick) 167 mg/dL (70-99) 160 mg/dL (70-99) 88 mg/dL (70-99) Triglycerides Level 30 mg/dL (0-150) Cholesterol Level 141 mg/dL (0-200) LDL Cholesterol, Calculated 57 mg/dL (0-100) VLDL Cholesterol, Calculated 6 mg/dL (0-40) Non-HDL Cholesterol Calculated 63 mg/dL (0-129) HDL Cholesterol 78 mg/dL (40-60) Cholesterol/HDL Ratio 1.8 Test 04/11/20 11:14 Glucose (Fingerstick) 139 mg/dL (70-99) Laboratory Tests Test 04/10/20 16:32 04/10/20 21:02 04/11/20 04:35 04/11/20 07:02 Glucose (Fingerstick) 167 mg/dL (70-99) 160 mg/dL (70-99) 88 mg/dL (70-99) Triglycerides Level 30 mg/dL (0-150) Cholesterol Level 141 mg/dL (0-200) LDL Cholesterol, Calculated 57 mg/dL (0-100) VLDL Cholesterol, Calculated 6 mg/dL (0-40) Non-HDL Cholesterol Calculated 63 mg/dL (0-129) HDL Cholesterol 78 mg/dL (40-60) Cholesterol/HDL Ratio 1.8 Test 04/11/20 11:14 Glucose (Fingerstick) 139 mg/dL (70-99) Medications Current Medications Iohexol (Omnipaque 300 Mg/ml) 60 ml 1X ONCE IV Last administered on 04/09/20at 16:17; Start 04/09/20 at 16:00; Stop 04/09/20 at 16:01; Status DC Info (CONTRAST GIVEN -- Rx MONITORING) 1 each PRN DAILY PRN MC SEE COMMENTS; Start 04/09/20 at 16:15; Stop 04/11/20 at 16:14 Hydralazine HCl (Apresoline Inj) 5 mg PRN Q4HRS PRN IVP ELEVATED BP, SEE COMMENTS Last administered on 04/10/20at 03:37; Start 04/10/20 at 00:15 Aspirin (Aspirin Rectal Supp) 300 mg DAILY SD Last administered on 04/10/20at 08:42; Start 04/10/20 at 09:00 Acetaminophen (Tylenol) 650 mg PRN Q6HRS PRN PO TEMP > 100.4F; Start 04/10/20 at 08:45 Acetaminophen (Tylenol Supp) 650 mg PRN Q4HRS PRN SD TEMP > 100.4F; Start 04/10/20 at 08:45 Aspirin (Ecotrin) 325 mg DAILYWBKFT PO Last administered on 04/11/20at 08:17; Start 04/10/20 at 09:00 Aspirin (Aspirin Rectal Supp) 300 mg PRN DAILY PRN SD IF UNABLE TO TAKE PO; Start 04/10/20 at 08:45 Ceftriaxone Sodium (Rocephin) 1 gm Q24H IVP Last administered on 04/11/20at 11:18; Start 04/10/20 at 12:00 Acetaminophen (Tylenol) 650 mg Q6HRS PO Last administered on 04/11/20at 06:22; Start 04/10/20 at 12:00 Amlodipine Besylate (Norvasc) 5 mg DAILY PO Last administered on 04/11/20at 08:17; Start 04/10/20 at 12:00 Aspirin (Ecotrin) 81 mg DAILY PO ; Start 04/10/20 at 12:00; Stop 04/10/20 at 10:57; Status DC Atorvastatin Calcium (Lipitor) 40 mg HS PO Last administered on 04/10/20at 21 :01; Start 04/10/20 at 21:00 Diclofenac Sodium (Voltaren) 1 genevieve BID TP Last administered on 04/11/20at 11:14; Start 04/10/20 at 12:00 Hydralazine HCl (Apresoline) 25 mg Q6HRS PO Last administered on 04/11/20at 06:22; Start 04/10/20 at 12:00 Prednisone (Prednisone) 10 mg DAILYWBKFT PO Last administered on 04/11/20at 08:17; Start 04/10/20 at 12:00 Tramadol HCl (Ultram) 50 mg PRN Q6HRS PRN PO MILD PAIN 1-3; Start 04/10/20 at 11:00 Active Scripts Active Prednisone (Prednisone) 10 Mg Tablet 10 Mg PO DAILY 14 Days Voltaren (Diclofenac Sodium) 100 Gm Gel..gram. 1 Genevieve TP BID 30 Days Norvasc (Amlodipine Besylate) 5 Mg Tablet 5 Mg PO DAILY Reported Lipitor (Atorvastatin Calcium) 40 Mg Tablet 40 Mg PO HS Aspirin Ec (Aspirin) 81 Mg Tablet.dr 81 Mg PO DAILY Hydralazine Hcl 25 Mg Tablet 25 Mg PO Q6HRS Q6hrs as needed for SBP >160 Tylenol (Acetaminophen) 325 Mg Tablet 650 Mg PO Q6HRS Tramadol Hcl 50 Mg Tablet 50 Mg PO Q6HRS PRN Vitals/I & O Vital Sign - Last 24 Hours 04/10/20 04/10/20 04/10/20 04/10/20 13:05 13:05 15:00 18:00 Temp 98.3 98.3 Pulse 89 89 79 91 Resp 18 B/P (MAP) 141/87 141/87 114/56 (75) 136/62 Pulse Ox 97 O2 Delivery Room Air 04/10/20 04/10/20 04/10/20 04/11/20 19:00 20:00 23:15 00:26 Temp 98.2 97.9 98.2 97.9 Pulse 80 75 75 Resp 18 18 B/P (MAP) 113/63 (80) 131/66 (87) 131/66 Pulse Ox 98 97 O2 Delivery Room Air Room Air Room Air 04/11/20 04/11/20 04/11/20 04/11/20 03:50 06:22 07:00 08:00 Temp 97.7 98.0 97.7 98.0 Pulse 75 75 72 Resp 18 16 B/P (MAP) 159/68 (98) 159/68 132/60 (84) Pulse Ox 98 98 O2 Delivery Room Air Room Air Room Air 04/11/20 04/11/20 08:17 11:06 Temp 98.2 98.2 Pulse 72 81 Resp 18 B/P (MAP) 132/60 130/55 (80) Pulse Ox 99 O2 Delivery Room Air Intake and Output 04/10/20 04/10/20 04/11/20 15:00 23:00 07:00 Intake Total 100 ml Balance 100 ml Images Echocardiogram: LEFT VENTRICLE The left ventricle is normal size. There is normal left ventricular wall thickness. Left ventricle systolic function is normal. The Ejection Fraction is 60-65%. There is normal LV segmental wall motion. Transmitral Doppler flow pattern is Grade I-abnormal relaxation pattern. RIGHT VENTRICLE The right ventricle is normal size. The right ventricular systolic function is normal. ATRIA The left atrium size is normal. The right atrium size is normal. The interatrial septum is intact with no evidence for an atrial septal defect or patent foramen ovale as noted on 2-D or Doppler imaging. AORTIC VALVE The aortic valve is moderately thickened but opens well. Doppler and Color Flow revealed mild to moderate aortic regurgitation. There is no significant aortic valvular stenosis. MITRAL VALVE The mitral valve is calcified but opens well. There is no evidence of mitral valve prolapse. There is no mitral valve stenosis. Doppler and Color-flow revealed mild mitral regurgitation. TRICUSPID VALVE The tricuspid valve is normal in structure and function. Doppler and Color Flow revealed mild tricuspid regurgitation. The PA pressure was estimated at 26 mmHg. There is no tricuspid valve stenosis. PULMONIC VALVE The pulmonary valve is normal in structure and function. Doppler and Color Flow revealed mild pulmonic valvular regurgitation. There is no pulmonic valvular stenosis. GREAT VESSELS The aortic root is normal in size. The ascending aorta is normal in size. The IVC was not visualized. PERICARDIAL EFFUSION There is no evidence of significant pericardial effusion. Critical Notification Critical Value: No <Conclusion> Left ventricle systolic function is normal. The Ejection Fraction is 60-65%. There is normal LV segmental wall motion. Doppler and Color Flow revealed mild to moderate aortic regurgitation. Justicifation of Admission Dx: Justifications for Admission: Justification of Admission Dx: Yes LILLI GRAF MD Apr 11, 2020 11:59
[2020-04-11] MEDS ORDERED: ASPI325T11 PO (14:44)
[2020-04-11] MEDS ORDERED: TRAM50TA PO (14:44)
[2020-04-11] MEDS ORDERED: CIPR250T30 PO (14:44)
--- NOTE | 2020-04-11 14:46 | SNU/HH DC ---
DISCHARGE ORDERS DISCHARGE INFORMATION: DISCHARGE DATE: Apr 11, 2020 FINAL DIAGNOSIS UTI CVA Problems Medical Problems: (1) Aphasia Status: Acute CONDITION ON DISCHARGE: Stable CODE STATUS: Code Status: Full [facility]: SNF STAY <30 DAYS: Yes POST DISCHARGE ORDERS: ACTIVITY ORDERS: Activity as tolerated WEIGHT BEARING STATUS: As tolerated DIET AFTER DISCHARGE: Cardiac CHECKS AFTER DISCHARGE: CHECKS AFTER DISCHARGE: Check blood press - daily FOLLOW-UP: PHYSICIAN FOLLOW-UP: primary care TREATMENT/EQUIPMENT ORDERS: ADAPTIVE EQUIPMENT NEEDED: Cane Physical Therapy For: Evalulation/Treatment Occupational Therapy For: Evaluation/Treatment Speech Language Pathology For: Evaluation/Treatment DISCHARGE MEDICATIONS: Home Meds Active Scripts Tramadol Hcl (TRAMADOL HCL) 50 Mg Tablet, 50 MG PO Q6HRS PRN for PAIN, #30 TAB Prov:ALVARO FABIAN MD 04/11/20 Prednisone (PREDNISONE ) 10 Mg Tablet, 10 MG PO DAILY for ARTHRITIS for 14 Days, #14 TAB Prov:MARYANA HANKS MD 12/27/18 Diclofenac Sodium (VOLTAREN) 100 Gm Gel..gram., 1 ROBERTH TP BID for ARTHRITIC PAIN, TOPICAL for 30 Days, #60 EACH Prov:MARYANA HANKS MD 12/27/18 Amlodipine Besylate (NORVASC) 5 Mg Tablet, 5 MG PO DAILY for High blood pressure, #30 TAB 3 Refills Prov:PANCHO MORATAYA MD 11/07/14 Reported Medications Atorvastatin Calcium (LIPITOR) 40 Mg Tablet, 40 MG PO HS for FOR CHOLESTEROL, #30 TAB 0 Refills 04/09/20 Aspirin (ASPIRIN EC) 81 Mg Tablet.dr, 81 MG PO DAILY for heart healthy, TAB.SR 04/09/20 Hydralazine Hcl (HYDRALAZINE HCL) 25 Mg Tablet, 25 MG PO Q6HRS for hypertension, TAB Q6hrs as needed for SBP >160 04/09/20 Acetaminophen (TYLENOL) 325 Mg Tablet, 650 MG PO Q6HRS for pain/temp, TAB 04/09/20 ALVARO FABIAN MD Apr 11, 2020 14:46
[2020-04-11 15:07] VITALS: BP 115/52
[2020-04-11 19:29] VITALS: BP 150/64
[2020-04-11] MEDS ORDERED: CALCIUM CARBONATE 500 MG TAB.CHEW PO PRN (20:15)
[2020-04-11] MEDS: ATORVASTATIN CALCIUM 40 MG TABLET. PO SCH (20:49)
[2020-04-11 22:36] VITALS: BP 149/71
[2020-04-12] MEDS: ACETAMINOPHEN 325 MG TABLET. PO SCH ×2 (00:01→06:24)
[2020-04-12 03:45] VITALS: BP 163/76
[2020-04-12] MEDS: hydrALAZINE 25 MG TABLET PO SCH (06:24)
[2020-04-12 07:00] VITALS: BP 170/72
[2020-04-12 08:55] VITALS: BP 170/72
[2020-04-12] MEDS: ASPIRIN ENTERIC COATED 325 MG TABLET.DR. PO SCH (08:55)
[2020-04-12] MEDS: ASPIRIN RECTAL 300 MG SUPP. PR SCH (08:55)
[2020-04-12] MEDS: amLODIPine BESYLATE 5 MG TABLET PO SCH (08:55)
[2020-04-12] MEDS: predniSONE 10 MG TABLET PO SCH (08:55)
[2020-04-12] MEDS: DICLOFENAC SODIUM 1% TOPICAL GEL 100GM TUBE. TP SCH (09:03)
--- NOTE | 2020-04-12 10:02 | NUR ---
SS following up with discharge planning. SS reviewed pt chart and discussed with pt RN. Discharge orders received for return to [facility], ; fax [phone]. SS phoned and faxed discharge orders to [facility]. Packet on chart. Pt will discharge today and go to [facility] at [address] [facility] transport, [id number]. Pt, pt's RN, and pt's daughter notified.
--- NOTE | 2020-04-12 10:14 | PDOC ---
PROGRESS NOTES Date of Service: DATE: 04/12/20 TIME: 10:13 Chief Complaint Chief Complaint ACUTE encephalopathy, new left infarct, acute stroke with CVA symptoms, also other CVA recent, with diploplia, UTI, sepsis, weakness and debility History of Present Illness History of Present Illness 04/12/2020 to SNU Patient seen and examined Patient is resting comfortably Discussed with daughter via phone Discussed with RN Reviewed charts Vitals Vitals Vital Signs Date Time Temp Pulse Resp B/P (MAP) Pulse Ox O2 Delivery O2 Flow Rate FiO2 04/12/20 08:55 82 170/72 04/12/20 07:00 98.3 16 97 Room Air 98.3 Physical Exam General: Alert, Cooperative, No acute distress, Other (trouble talking speaking double, ) Lungs: Clear, Crackles Abdomen: Normal bowel sounds, Soft Extremities: No cyanosis, Other Skin: No rashes Labs LABS Laboratory Tests Test 04/11/20 11:14 04/11/20 16:27 04/11/20 20:40 04/12/20 07:23 Glucose (Fingerstick) 139 mg/dL (70-99) 176 mg/dL (70-99) 151 mg/dL (70-99) 76 mg/dL (70-99) Assessment and Plan Assessmemt and Plan Problems Medical Problems: (1) Aphasia Status: Acute Comment Review of Relevant I have reviewed the following items janine (where applicable) has been applied. Labs Laboratory Tests Test 04/10/20 11:32 04/10/20 16:32 04/10/20 21:02 04/11/20 04:35 Glucose (Fingerstick) 88 mg/dL (70-99) 167 mg/dL (70-99) 160 mg/dL (70-99) Triglycerides Level 30 mg/dL (0-150) Cholesterol Level 141 mg/dL (0-200) LDL Cholesterol, Calculated 57 mg/dL (0-100) VLDL Cholesterol, Calculated 6 mg/dL (0-40) Non-HDL Cholesterol Calculated 63 mg/dL (0-129) HDL Cholesterol 78 mg/dL (40-60) Cholesterol/HDL Ratio 1.8 Test 04/11/20 07:02 04/11/20 11:14 04/11/20 16:27 04/11/20 20:40 Glucose (Fingerstick) 88 mg/dL (70-99) 139 mg/dL (70-99) 176 mg/dL (70-99) 151 mg/dL (70-99) Test 04/12/20 07:23 Glucose (Fingerstick) 76 mg/dL (70-99) Laboratory Tests Test 04/11/20 11:14 04/11/20 16:27 04/11/20 20:40 04/12/20 07:23 Glucose (Fingerstick) 139 mg/dL (70-99) 176 mg/dL (70-99) 151 mg/dL (70-99) 76 mg/dL (70-99) Medications Current Medications Iohexol (Omnipaque 300 Mg/ml) 60 ml 1X ONCE IV Last administered on 04/09/20at 16:17; Start 04/09/20 at 16:00; Stop 04/09/20 at 16:01; Status DC Info (CONTRAST GIVEN -- Rx MONITORING) 1 each PRN DAILY PRN MC SEE COMMENTS; Start 04/09/20 at 16:15; Stop 04/11/20 at 16:14; Status DC Hydralazine HCl (Apresoline Inj) 5 mg PRN Q4HRS PRN IVP ELEVATED BP, SEE COMMENTS Last administered on 04/10/20at 03:37; Start 04/10/20 at 00:15 Aspirin (Aspirin Rectal Supp) 300 mg DAILY SC Last administered on 04/10/20at 08:42; Start 04/10/20 at 09:00 Acetaminophen (Tylenol) 650 mg PRN Q6HRS PRN PO TEMP > 100.4F; Start 04/10/20 at 08:45 Acetaminophen (Tylenol Supp) 650 mg PRN Q4HRS PRN SC TEMP > 100.4F; Start 04/10/20 at 08:45 Aspirin (Ecotrin) 325 mg DAILYWBKFT PO Last administered on 04/12/20at 08:55; Start 04/10/20 at 09:00 Aspirin (Aspirin Rectal Supp) 300 mg PRN DAILY PRN SC IF UNABLE TO TAKE PO; St art 04/10/20 at 08:45 Ceftriaxone Sodium (Rocephin) 1 gm Q24H IVP Last administered on 04/11/20at 11:18; Start 04/10/20 at 12:00 Acetaminophen (Tylenol) 650 mg Q6HRS PO Last administered on 04/12/20at 06:24; Start 04/10/20 at 12:00 Amlodipine Besylate (Norvasc) 5 mg DAILY PO Last administered on 04/12/20at 08:55; Start 04/10/20 at 12:00 Aspirin (Ecotrin) 81 mg DAILY PO ; Start 04/10/20 at 12:00; Stop 04/10/20 at 10:57; Status DC Atorvastatin Calcium (Lipitor) 40 mg HS PO Last administered on 04/11/20at 20:4 9; Start 04/10/20 at 21:00 Diclofenac Sodium (Voltaren) 1 genevieve BID TP Last administered on 04/12/20at 09:03; Start 04/10/20 at 12:00 Hydralazine HCl (Apresoline) 25 mg Q6HRS PO Last administered on 04/12/20at 06:24; Start 04/10/20 at 12:00 Prednisone (Prednisone) 10 mg DAILYWBKFT PO Last administered on 04/12/20at 08:55; Start 04/10/20 at 12:00 Tramadol HCl (Ultram) 50 mg PRN Q6HRS PRN PO MILD PAIN 1-3; Start 04/10/20 at 11:00 Calcium Carbonate/ Glycine (Tums) 500 mg PRN AFTMEALHC PRN PO INDIGESTION Last administered on 04/11/20at 20:48; Start 04/11/20 at 20:15 Active Scripts Active Cipro (Ciprofloxacin Hcl) 250 Mg Tablet 1 Tab PO BID 4 Days Aspirin Ec (Aspirin) 325 Mg Tablet. 325 Mg PO DAILYWBKFT Tramadol Hcl 50 Mg Tablet 50 Mg PO Q6HRS PRN Prednisone (Prednisone) 10 Mg Tablet 10 Mg PO DAILY 14 Days Voltaren (Diclofenac Sodium) 100 Gm Gel..gram. 1 Genevieve TP BID 30 Days Norvasc (Amlodipine Besylate) 5 Mg Tablet 5 Mg PO DAILY Reported Lipitor (Atorvastatin Calcium) 40 Mg Tablet 40 Mg PO HS Aspirin Ec (Aspirin) 81 Mg Tablet. 81 Mg PO DAILY Hydralazine Hcl 25 Mg Tablet 25 Mg PO Q6HRS Q6hrs as needed for SBP >160 Tylenol (Acetaminophen) 325 Mg Tablet 650 Mg PO Q6HRS Vitals/I & O Vital Sign - Last 24 Hours 04/11/20 04/11/20 04/11/20 04/11/20 11:06 13:04 15:07 18:08 Temp 98.2 98.7 98.2 98.7 Pulse 81 88 93 83 Resp 18 18 B/P (MAP) 130/55 (80) 142/60 115/52 (73) 152/67 Pulse Ox 99 99 O2 Delivery Room Air Room Air 04/11/20 04/11/20 04/11/20 04/11/20 19:29 19:50 20:49 22:36 Temp 98.4 97.9 98.4 97.9 Pulse 89 89 79 Resp 16 16 B/P (MAP) 150/64 (92) 150/64 149/71 (97) Pulse Ox 96 97 O2 Delivery Room Air Room Air Room Air 04/12/20 04/12/20 04/12/20 04/12/20 03:45 06:24 07:00 08:55 Temp 97.8 98.3 97.8 98.3 Pulse 74 74 82 82 Resp 16 16 B/P (MAP) 163/76 (105) 163/76 170/72 (104) 170/72 Pulse Ox 95 97 O2 Delivery Room Air Room Air Intake and Output 04/11/20 04/11/20 04/12/20 15:00 23:00 07:00 Intake Total 360 ml 520 ml 100 ml Output Total 200 ml 200 ml Balance 360 ml 320 ml -100 ml Justicifation of Admission Dx: Justifications for Admission: Justification of Admission Dx: Yes ALVARO FABIAN MD Apr 12, 2020 10:14
--- NOTE | 2020-04-12 10:17 | PDOC3 ---
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, some palsy noted by Neuro eval weakness and debility Problems Medical Problems: (1) Aphasia Status: Acute Brief Hospital Course Allergies Allergies Coded Allergies Type Severity Reaction Last Updated Verified Penicillins Allergy Intermediate 04/12/20 Yes Vital Signs Vital Signs Date Time Temp Pulse Resp B/P (MAP) Pulse Ox O2 Delivery O2 Flow Rate FiO2 04/12/20 08:55 82 170/72 04/12/20 07:00 98.3 16 97 Room Air 98.3 Lab Results Laboratory Tests Test 04/10/20 11:32 04/10/20 16:32 04/10/20 21:02 04/11/20 04:35 Glucose (Fingerstick) 88 mg/dL (70-99) 167 mg/dL (70-99) 160 mg/dL (70-99) Triglycerides Level 30 mg/dL (0-150) Cholesterol Level 141 mg/dL (0-200) LDL Cholesterol, Calculated 57 mg/dL (0-100) VLDL Cholesterol, Calculated 6 mg/dL (0-40) Non-HDL Cholesterol Calculated 63 mg/dL (0-129) HDL Cholesterol 78 mg/dL (40-60) Cholesterol/HDL Ratio 1.8 Test 04/11/20 07:02 04/11/20 11:14 04/11/20 16:27 04/11/20 20:40 Glucose (Fingerstick) 88 mg/dL (70-99) 139 mg/dL (70-99) 176 mg/dL (70-99) 151 mg/dL (70-99) Test 04/12/20 07:23 Glucose (Fingerstick) 76 mg/dL (70-99) Laboratory Tests Test 04/11/20 11:14 04/11/20 16:27 04/11/20 20:40 04/12/20 07:23 Glucose (Fingerstick) 139 mg/dL (70-99) 176 mg/dL (70-99) 151 mg/dL (70-99) 76 mg/dL (70-99) Brief Hospital Course Ms. Amanda is a 84 old adtmi with confusino and new dysarthria, stuttering. MRI showed new CVA, will restart rehab, she was already in rehab for stroke, had double vision already she is optimistic and will rehab again Discharge Information Condition at Discharge: Improved Follow Up: Weeks Disposition/Orders: D/C to Another Facility Scheduled Acetaminophen (Tylenol) 325 Mg Tablet, 650 MG PO Q6HRS for pain/temp, (Reported) Entered as Reported by: BLAYNE MARTIN on 04/09/202035 Last Action: Continued on 04/10/201046 by ALVARO FABIAN Amlodipine Besylate (Norvasc) 5 Mg Tablet, 5 MG PO DAILY for High blood pressure, #30 Ref 3 Prescribed by: PANCHO MORATAYA on 11/07/14 145 Last Action: Continued on 04/10/201046 by ALVARO FABIAN Aspirin (Aspirin Ec) 81 Mg Tablet., 81 MG PO DAILY for heart healthy, (Reported) Entered as Reported by: BLAYNE MARTIN on 04/09/202051 Last Action: Continued on 04/10/201046 by ALVARO FABIAN Aspirin (Aspirin Ec) 325 Mg Tablet.dr, 325 MG PO DAILYWBKFT for CVA, #30 Prescribed by: ALVARO FABIAN on 04/11/20 1444 Atorvastatin Calcium (Lipitor) 40 Mg Tablet, 40 MG PO HS for FOR CHOLESTEROL, #30 Ref 0 (Reported) Entered as Reported by: BLAYNE MARTIN on 04/09/202053 Last Action: Continued on 04/10/201046 by ALVARO FABIAN Ciprofloxacin Hcl (Cipro) 250 Mg Tablet, 1 TAB PO BID for UTI for 4 Days, #8 Ref 0 Prescribed by: ALVARO FABIAN on 04/11/20 1444 Diclofenac Sodium (Voltaren) 100 Gm Gel..gram., 1 ROBERTH TP BID for ARTHRITIC PAIN, TOPICAL for 30 Days, #60 Prescribed by: MARYANA HANKS MD on 12/27/18 1300 Last Action: Continued on 04/10/201046 by ALVARO FABIAN Hydralazine Hcl (Hydralazine Hcl) 25 Mg Tablet, 25 MG PO Q6HRS for hypertension, (Reported) Q6hrs as needed for SBP >160 Entered as Reported by: BLAYNE MARTIN on 04/09/202049 Last Action: Continued on 04/10/201046 by ALVARO FABIAN Prednisone (Prednisone ) 10 Mg Tablet, 10 MG PO DAILY for ARTHRITIS for 14 Days, #14 Prescribed by: MARYANA HANKS MD on 12/27/18 1300 Last Action: Continued on 04/10/201046 by ALVARO FABIAN Scheduled PRN Tramadol Hcl (Tramadol Hcl) 50 Mg Tablet, 50 MG PO Q6HRS PRN for PAIN, #30 Prescribed by: ALVARO FABIAN on 04/11/20 1444 Patient Instructions Patient Instructions > 30 min face to facemask Justicifation of Admission Dx: Justifications for Admission: Justification of Admission Dx: Yes ALVARO FABIAN MD Apr 12, 2020 10:17
--- NOTE | 2020-04-12 11:10 | NUR ---
Discharge Note: [facility] Discharge instructions and discharge home medications reviewed with Patient and a copy given. All questions have been answered and understanding verbalized. The following instructions and handouts were given: ceftriaxone Patient discharged to [facility] with transport via wheelchair.
== END 2020-04-12 11:11 | DRG 871 ==
LOC: ER 15:27 → 2 SOUTH 17:38
PROVIDERS: ADMIT Internal Medicine; ATTEND Internal Medicine
DX: A41.9 Sepsis, unspecified organism (principal); I63.81 Other cerebral infarction due to occlusion or stenosis of small artery; G93.40 Encephalopathy, unspecified; E44.1 Mild protein-calorie malnutrition; R47.01 Aphasia; N39.0 Urinary tract infection, site not specified; E11.22 Type 2 diabetes mellitus with diabetic chronic kidney disease; E11.40 Type 2 diabetes mellitus with diabetic neuropathy, unspecified; F03.90 Unspecified dementia, unspecified severity, without behavioral disturbance, psychotic disturbance, mood disturbance, and anxiety; H49.22 Sixth [abducent] nerve palsy, left eye; I12.9 Hypertensive chronic kidney disease with stage 1 through stage 4 chronic kidney disease, or unspecified chronic kidney disease; N18.3 Chronic kidney disease, stage 3 (moderate); Z82.49 Family history of ischemic heart disease and other diseases of the circulatory system; Z83.2 Family history of diseases of the blood and blood-forming organs and certain disorders involving the immune mechanism; Z86.73 Personal history of transient ischemic attack (TIA), and cerebral infarction without residual deficits; Z90.49 Acquired absence of other specified parts of digestive tract; K21.9 Gastro-esophageal reflux disease without esophagitis; L40.9 Psoriasis, unspecified; M19.90 Unspecified osteoarthritis, unspecified site; Z88.0 Allergy status to penicillin; Z79.899 Other long term (current) drug therapy
CPT/HCPCS: 36415; 70450; 70496; 70498; 70551; 80053; 80061; 81001; 82140; 82962; 83735; 84484; 85007; 85025; 85610; 85730; 93005; 93306; 99285; J0360; J0696; J7512; Q9967; 92610-GN; 97116-GP; 97530-GP; G0378

== ENCOUNTER → 2020-07-18 | Outpatient (CLI) | payer MEDICARE ==
[2020-06-22 11:41] VITALS: BP 120/74
[~2020-07-18] MED LIST changes: +ASPI-886 PO; +ASPI325T11 PO; +ATOR40TA PO; +BISA10SU4 PR; +CHOL10003 PO; +CIPR250T30 PO; +DOCU-153 PO; -HYDR-2163 PO; +HYDR-2868 PO; +HYDR-3068 PO; +MULT1TAB90 PO
--- NOTE | 2020-07-18 16:30 | EEG ---
DATE OF SERVICE: 07/18/2020 ELECTROENCEPHALOGRAM REPORT EEG NUMBER: [id number] OBJECTIVE: The patient is an 84-year-old female with episodes of altered consciousness, rule out seizures. DESCRIPTION: This is a digital study. Electrodes are placed according to international 10-20 system. Bipolar and referential montages are available. INTERPRETATION: The waking background consists of 6-7 Hz, 20-50 microvolt activity, symmetrically distributed over parietooccipital regions and reactive to eye opening. Hyperventilation and intermittent photic stimulation are noncontributory. Stage 1 sleep is achieved with normal electroencephalogram patterns. IMPRESSION: This electroencephalogram with the patient awake and asleep is abnormal because of a mild, diffuse disturbance of cerebral activity consistent with any of a variety of toxic or metabolic encephalopathies including later stages of dementia. There is no focal, paroxysmal, or epileptiform activity. Thank you for letting us help with the patient's care. LILLI GRAF MD DR: HILTON/feroz JOB#: [id number] / [id number] AURY Poole MD [facility]
== END ==
LOC: RT 08:28
PROVIDERS: ATTEND Psychiatry & Neurology Neurology with Special Qualifications in Child Neurology
DX: R55 Syncope and collapse (principal)
CPT/HCPCS: 95816

== ENCOUNTER 2020-08-15 10:00 | Emergency (ER) | payer MEDICARE ==
[~2020-08-15] VITALS: Ht 149.9 cm; Wt 54.0 kg
--- NOTE | 2020-08-15 10:14 | PHYS DOC ---
Past Medical History Past Medical History: Arthritis, Hypertension, Other Additional Past Medical Histor: Psoriasis, RA (FLORENTIN PATTEN APRN) Past Surgical History: Appendectomy, , Other Additional Past Surgical Histo: Rotator Cuff (FLORENTIN PATTEN APRN) Smoking Status: Unknown if ever smoked Alcohol Use: None Drug Use: None (FLORENTIN PATTEN APRN) General Adult EDM: Chief Complaint: SYNCOPE HPI: HPI: Patient is a 84 year old female with history of hypertension, TIA, presenting to the ED today from home to be evaluated after being found slumped over on her wheelchair. Per EMS patient's daughter reported patient had passed out. Patient arrives in the ED alert oriented x4 with no complaints. (FLORENTIN PATTEN APRN) Review of Systems: Review of Systems: Constitutional: Denies fever or chills. [] Eyes: Denies change in visual acuity. [] HENT: Denies nasal congestion or sore throat. [] Respiratory: Denies cough or shortness of breath. [] Cardiovascular: Denies chest pain or edema. [] GI: Denies abdominal pain, nausea, vomiting, bloody stools or diarrhea. [] : Denies dysuria. [] Musculoskeletal: Denies back pain or joint pain. [] Integument: Denies rash. [] Neurologic: EMS reports syncope episode. Denies headache, focal weakness or sensory changes. [] Psychiatric: Denies depression or anxiety. [] (FLORENTIN PATTEN APRN) Heart Score: Risk Factors: Risk Factors: DM, Current or recent (<one month) smoker, HTN, HLP, family history of CAD, obesity. Risk Scores: Score 0 - 3: 2.5% MACE over next 6 weeks - Discharge Home Score 4 - 6: 20.3% MACE over next 6 weeks - Admit for Clinical Observation Score 7 - 10: 72.7% MACE over next 6 weeks - Early Invasive Strategies (FLORENTIN PATTEN APRN) Allergies: Allergies: Allergies Coded Allergies Type Severity Reaction Last Updated Verified Penicillins Allergy Intermediate 04/12/20 Yes (FLORENTIN PATTEN APRN) Physical Exam: PE: Constitutional: Well developed, well nourished, no acute distress, non-toxic appearance. [] HENT: Normocephalic, atraumatic, bilateral external ears normal, oropharynx moist, no oral exudates, nose normal. [] Eyes: PERRLA, EOMI, conjunctiva normal, no discharge. [] Neck: Normal range of motion, no tenderness, supple, no stridor. [] Cardiovascular:Heart rate regular rhythm, no murmur [] Lungs & Thorax: Bilateral breath sounds clear to auscultation [] Abdomen: Bowel sounds normal, soft, no tenderness, no masses, no pulsatile mas ses. [] Skin: Warm, dry, no erythema, no rash. [] Back: No tenderness, no CVA tenderness. [] Extremities: No tenderness, no cyanosis, no clubbing, ROM intact, no edema. [] Neurologic: Alert and oriented X 3, normal motor function, normal sensory function, no focal deficits noted. Cranial nerves II through XII intact Psychologic: Affect normal, judgement normal, mood normal. [] (FLORENTIN PATTEN APRN) EKG: EK interpreted by Dr. Yeh sinus rhythm HR 78 no STEMI[] (FLORENTIN PATTEN APRN) Radiology/Procedures: Radiology/Procedures: []PROCEDURE: CT HEAD WO CONTRAST PQRS Compliance Statement: One or more of the following individualized dose reduction techniques were util ized for this examination: 1. Automated exposure control 2. Adjustment of the mA and/or kV according to patient size 3. Use of iterative reconstruction technique CT head without contrast 08/15/2020 10:13 AM INDICATION: Syncope COMPARISON: MRI brain 04/10/2020 TECHNIQUE: Multiple axial CT images of the head were obtained from skull base through the vertex without intravenous contrast. FINDINGS: Head: Ventricles, sulci and basal cisterns are within normal limits. Low-attenuation in the periventricular white matter is suggestive of chronic small vessel ischemic changes. There is no hydrocephalus. Mckay-white matter differentiation is normal. There is no acute intracranial hemorrhage. There is no mass, mass effect or midline shift. Posterior fossa is normal in appearance. Remote lacunar infarct noted in the left caudate head. Remote ischemic changes noted within the left thalamus. Visualized portions of the orbits are normal with exception of bilateral lens replacement. Paranasal sinuses are well aerated. Mastoid air cells are well aerated. Scalp and calvaria are normal. IMPRESSION: No acute intracranial hemorrhage. Low-attenuation in the periventricular white matter is suggestive of chronic small vessel ischemic changes. 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 Electronically signed by: Ginger Whyte MD (08/15/2020 10:48 AM) [id number] DICTATED and SIGNED BY: GINGER WHYTE MD DATE: 08/15/20 [id number] PROCEDURE: PORTABLE CHEST 1V XR CHEST 1V 08/15/2020 10:13 AM INDICATION: Incomplete COMPARISON: 06/18/2020 TECHNIQUE: Portable frontal view of the chest is provided. FINDINGS: The cardiomediastinal silhouette is within normal limits. Mild chronic interstitial changes are present. Lungs are clear. Atherosclerotic changes of the thoracic aorta are present. There are no significant pleural effusions. There is no pulmonary vascular congestion. No pneumothorax. No suspicious osseous abnormality. IMPRESSION: Mild chronic interstitial changes without acute cardiopulmonary process. Electronically signed by: Ginger Whyte MD (08/15/2020 10:44 AM) [id number] DICTATED and SIGNED BY: GINGER WHYTE MD DATE: 08/15/20 [id number] (FLORENTIN PATTEN APRN) Course & Med Decision Making: Course & Med Decision Making Pertinent Labs and Imaging studies reviewed. (See chart for details) This is a 84-year-old female patient presenting to the ED today to be evaluated after the daughter found her slumped over on her wheelchair and "passed out". Patient has no complaints in the ED. She is alert and oriented x3. CT of the head is negative for any acute findings, CBC, CMP troponin and EKG negative. Urine analysis positive for UTI. Discharged on Macrobid. Follow-up with PCP in the course of this week. (FLORENTIN PATTEN APRN) [place] Disclaimer: Lizet Disclaimer: This electronic medical record was generated, in whole or in part, using a voice recognition dictation system. (FLORENTIN PATTEN APRN) Departure Departure Impression: Primary Impression: Near syncope Additional Impression: Urinary tract infection Qualified Codes: N39.0 - Urinary tract infection, site not specified Disposition: 01 DC HOME SELF CARE/HOMELESS Condition: STABLE Referrals: AURY LAWLER MD (PCP) follow up with your doctor in one week Patient Instructions: Urinary Tract Infection Additional Instructions: You have urinary tract infection, take the prescribed antibiotics until completed. Follow-up with your doctor in the course of this week. Push fluids. Come back to the ED at any point symptoms worsen Scripts Nitrofurantoin Monohyd/M-Cryst (MACROBID 100 MG CAPSULE) 100 Mg Capsule 1 CAP PO BID for 7 Days, #14 CAP 0 Refills Prov: FLORENTIN PATTEN APRN 08/15/20 Attending Signature Attending Signature I have reviewed the PA/RECEPTIONIST DOCTOR'S OFFICE's note and plan of care. I was available for consultation as needed during the patient's visit in the emergency department. I agree with the clinical impression, plan, and disposition. (COLBY YEH DO) FLORENTIN PATTEN APRN Aug 15, 2020 10:14 COLBY YEH DO Aug 15, 2020 18:53
--- NOTE | 2020-08-15 10:47 | RAD ---
XR CHEST 1V 08/15/2020 10:13 AM INDICATION: Incomplete COMPARISON: 06/18/2020 TECHNIQUE: Portable frontal view of the chest is provided. FINDINGS: The cardiomediastinal silhouette is within normal limits. Mild chronic interstitial changes are prese nt. Lungs are clear. Atherosclerotic changes of the thoracic aorta are present. There are no significant pleural effusions. There is no pulmonary vascular congestion. No pneumothora x. No suspicious osseous abnormality. IMPRESSION: Mild chronic interstitial changes without acute cardiopulmonary process. Electronically signed by: Lesly Valencia MD (08/15/2020 10:44 AM) [id number]
--- NOTE | 2020-08-15 10:50 | RAD ---
PQRS Compliance Statement: One or more of the following individualized dose reduction techniques were utilized for this examinat ion: 1. Automated exposure control 2. Adjustment of the mA and/or kV according to patient size 3. Use of iterative reconstruction technique CT head without contrast 08/15/2020 10:13 AM INDICATION: Syncope COMPARISON: MRI brain 04/10/2020 TECHNIQUE: Multiple axial CT images of the head were obtained from skull base through the vertex with out intravenous contrast. FINDINGS: Head: Ventricles, sulci and basal cisterns are within normal limits. Low-attenuation in the periventricular white matter is suggestive of chronic small vessel ischemic changes. There is no hydrocephalus. Mckay -white matter differentiation is normal. There is no acute intracranial hemorrhage. There is no mass, mass effect or midline shift. Posterior fossa is normal in appearance. Remote lacunar infarct noted in the left caudate head. Remote ischemic changes noted within the left thalamus. Visualized portions of the orbits are normal with exception of bilateral lens replacement. Paranasal sinuses are well aerated. Mastoid air cells are well aerated. Scalp and calvaria are normal. IMPRESSION: No acute intracranial hemorrhage. Low-attenuation in the periventricular white matter is suggestive of chronic small vessel ischemic ch anges. 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 Electronically signed by: Lesly Valencia MD (08/15/2020 10:48 AM) [id number]
[2020-08-15 10:59] LABS: BASO # 0.1 x10^3/uL (0.0-0.2); BASO % 1 % (0-3); EOS # 0.3 x10^3/uL (0.0-0.7); EOS % 2 % (0-3); HEMATOCRIT 31.2 % (36.0-47.0); HEMOGLOBIN 9.8 g/dL (12.0-15.5); LYMPH # 2.4 x10^3/uL (1.0-4.8); LYMPH % 20 % (24-48); MEAN CORPUSCULAR HEMOGLOBIN 24 pg (25-35); MEAN CORPUSCULAR HGB CONC 32 g/dL (31-37); MEAN CORPUSCULAR VOLUME 76 fL (79-100); MONO # 0.9 x10^3/uL (0.0-1.1); MONO % 7 % (0-9); NEUT # 8.4 x10^3/uL (1.8-7.7); NEUT % 70 % (31-73); PLATELET COUNT 315 x10^3/uL (140-400); RED CELL DISTRIBUTION WIDTH 18.8 % (11.5-14.5)
[2020-08-15 11:06] LABS: CREATININE 1.2 mg/dL (0.6-1.0); GFR 51.7; POTASSIUM 3.6 mmol/L (3.5-5.1)
[2020-08-15 11:12] LABS: ALBUMIN 2.8 g/dL (3.4-5.0); ALBUMIN/GLOBULIN RATIO 0.6 (1.0-1.7); TOTAL BILIRUBIN 0.7 mg/dL (0.2-1.0); TOTAL PROTEIN 7.6 g/dL (6.4-8.2)
[2020-08-15 11:28] LABS: BILIRUBIN,URINE NEGATIVE (NEG); CLARITY,URINE CLEAR; COLOR,URINE YELLOW; NITRITE,URINE POSITIVE (NEG); PROTEIN,URINE NEGATIVE (NEG-TRACE); UROBILINOGEN,URINE 0.2 mg/dL (0.2 mg/dL)
[2020-08-15 11:32] LABS: PROTHROMBIN TIME PATIENT 14.1 SEC (11.7-14.0)
[2020-08-15 11:37] LABS: AMPHETAMINE/METHAMPHETAMINE NEG (NEG); BARBITURATES NEG (NEG); BENZODIAZEPINES NEG (NEG); CANNABINOIDS NEG (NEG); COCAINE NEG (NEG); METHADONE NEG (NEG); OPIATES NEG (NEG); PHENCYCLIDINE NEG (NEG)
[2020-08-15 11:43] LABS: BACTERIA,URINE MANY /HPF (0-FEW); RBC,URINE OCC /HPF (0-2)
[2020-08-15] MEDS ORDERED: CIPROFLOXACIN 400MG PREMIX 200 ML IV ONE (12:00)
--- NOTE | 2020-08-15 12:02 | EKG ---
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
[2020-08-15] MEDS ORDERED: NITR100C62 PO (13:03)
[2020-08-15 14:00] VITALS: BP 150/70
== END 2020-08-15 15:54 | disposition home or self-care (01) ==
LOC: ER 10:00
DX: R55 Syncope and collapse (principal); N39.0 Urinary tract infection, site not specified; I10 Essential (primary) hypertension; Z86.73 Personal history of transient ischemic attack (TIA), and cerebral infarction without residual deficits; Z88.0 Allergy status to penicillin; Z79.899 Other long term (current) drug therapy
CPT/HCPCS: 36415; 70450; 71045; 80053; 80307; 81001; 83735; 83880; 84443; 84484; 85025; 85610; 85730; 87077; 87086; 87186; 93005; 96365; 99285; J0744